=== PATIENT | female | born 1960 | race Caucasian/White ===

== ENCOUNTER 2019-05-01 20:05 | Inpatient (IN) | payer OTHER ==
--- NOTE | 2019-05-01 20:27 | PDOC ---
Rapid Medical Evaluation Chief Complaint: Pain Time Seen by Provider: 05/01/19 20:08 Medical Evaluation: 05/01/19 20:08 Pt c/o: took 2 energy drinks at 4 and 6, felt tremulous and feels her sugar is high Pt on brief exam: lethargic, tachycardic, dry mouth Pt ordered for: septic w/u, head ct, bgm now Pt to proceed to the ED Discharge Disposition - Diagnosis Weakness - Referrals - Patient Instructions - Post Discharge Activity
[2019-05-01] MEDS ORDERED: SODIUM CHLORIDE 1,000 ML IV STA (20:30)
[2019-05-01 20:54] LABS: VENOUS PC02 22.8 mmHg (38-52); VENOUS PH 7.25 (7.31-7.41)
[2019-05-01 20:57] LABS: BASO % 0.2 % (0-2.0); HEMATOCRIT 42.3 % (32.4-45.2); HEMOGLOBIN 14.2 GM/dL (10.7-15.3); LYMPH % 4.8 % (8-40); MCH 35.6 pg (25.7-33.7); MCHC 33.4 g/dl (32.0-36.0); MEAN CELL VOLUME 106.4 fl (80-96); MONO % 8.4 % (3.8-10.2); NEUT % 86.6 % (42.8-82.8); PLATELET COUNT 212 K/MM3 (134-434); RBC 3.98 M/mm3 (3.60-5.2); RDW 13.6 % (11.6-15.6); WHITE BLOOD COUNT 11.6 K/mm3 (4.0-10.0)
--- NOTE | 2019-05-01 21:03 | PDOC ---
History of Present Illness - General Chief Complaint: Pain Stated Complaint: PAIN Time Seen by Provider: 05/01/19 20:08 History Source: Patient Exam Limitations: Language Barrier (Mozambican only) - History of Present Illness Initial Comments: 05/01/19 20:58 58 yo F PMH NIDDM presenting with SOB. Patient Mozambican speaking only. States that her shortness of breath began this morning after drinking two energy drinks , worsened with activity, alleviated by rest, associated with nausea without vomiting. Denies CP, diaphoresis, fevers/chills at home, constipation/diarrhea. Reportedly was checked for a UTI four days ago and did not have one. Denies ever having heart attack or stroke in the past. 05/01/19 21:30 Patient now saying she is visiting from [place], arrived last month, leaving next month. Past History - Past Medical History Allergies/Adverse Reactions: Allergies Allergy/AdvReac Type Severity Reaction Status Date / Time No Known Allergies Allergy Verified 05/01/19 20:10 Home Medications: Ambulatory Orders Metformin HCl [Metformin HCl ER] 500 mg PO BID 05/01/19 COPD: No Diabetes: Yes - Immunization History Immunization Up to Date: No - Psycho Social/Smoking Cessation Hx Smoking History: Never smoked Hx Alcohol Use: No Drug/Substance Use Hx: No Review of Systems - Review of Systems Able to Perform ROS?: Yes Is the patient limited Sami proficient: Yes Constitutional: No: Chills, Diaphoresis, Fever HEENTM: No: Recent change in vision, Hearing Loss, Throat Pain, Mouth Swelling Respiratory: Yes: Shortness of Breath, SOB with Exertion. No: Cough, Orthopnea , SOB at Rest, Wheezing Cardiac (ROS): No: Chest Pain, Edema, Irregular Heart Rate, Lightheadedness ABD/GI: Yes: Nausea. No: Constipated, Diarrhea, Vomiting : Yes: Burning. No: Frequency, Flank Pain Musculoskeletal: No: Back Pain, Neck Pain Neurological: No: Headache, Numbness, Tingling, Weakness *Physical Exam - Vital Signs Last Vital Signs Temp Pulse Resp BP Pulse Ox 98.2 F 134 H 18 133/82 97 05/01/19 20:10 05/01/19 20:10 05/01/19 20:10 05/01/19 20:10 05/01/19 20:10 - Physical Exam Comments: 10/11/19 21:04 Gen: appears older than stated age, short of breath Neuro: AAOX4, CN II-XII intact, FTN intact, PERRLA, EOMI HEENT: atraumatic, normocephalic Neck: trachea midline, supple CV: tachycardic, regular rhythm Pulm: poor inspiratory effort, otherwise CTA b/l Abd: soft, non-distended, non-tender MSK: full ROM, intact pulses Extr: no edema, no deformities Skin: warm, dry ED Treatment Course - LABORATORY CBC & Chemistry Diagram: 05/02/19 06:38 05/02/19 16:30 - ADDITIONAL ORDERS Additional order review: Laboratory Results 05/01/19 20:16 POC Glucometer 414 05/01/19 20:16 POC Glucometer 414 Medical Decision Making - Medical Decision Making 05/01/19 21:09 Concern for UTI v PNA v ACS v PE. - f/u labs - pending Cr, afterwards get CTpe r/o PE - give 1L IVF - ctm EKG sinus at 130. 05/01/19 21:21 WBC 11.6, pH 7.25, BHB >46, anion gap 22. Concern for DKA. K only 3.8, will give K rider X3. Na corrected 131. 05/01/19 22:[address] Hernandez in the ICU, they will come see patient. 05/01/19 22:38 CXR appears congested, BNP 455.6. UA concerning for UTI, will give ceftriaxone. Discharge - Discharge Information Problems reviewed: Yes Clinical Impression/Diagnosis: Contusion - Follow up/Referral - Patient Discharge Instructions - Post Discharge Activity
[2019-05-01 21:06] LABS: INR 1.05 (0.83-1.09); PROTHROMBIN TIME (PATIENT) 12.4 SEC (9.7-13.0)
[2019-05-01 21:19] LABS: ALBUMIN 3.2 g/dl (3.4-5.0); ALK PHOS 136 U/L (45-117); ANION GAP 22 MMOL/L (8-16); BILIRUBIN,TOTAL 0.6 mg/dL (0.2-1); BLOOD UREA NITROGEN 8.8 mg/dL (7-18); CALCIUM 8.2 mg/dL (8.5-10.1); CHLORIDE 95 mmol/L (98-107); CO2 10 mmol/L (21-32); CREATININE 0.6 mg/dL (0.55-1.3); MAGNESIUM 1.6 mg/dL (1.8-2.4); POTASSIUM 3.8 mmol/L (3.5-5.1); SGOT/AST 7 U/L (15-37); SGPT/ALT 14 U/L (13-61); SODIUM 126 mmol/L (136-145)
[2019-05-01 21:21] LABS: GLUCOSE,RANDOM 415 mg/dL (74-106)
[2019-05-01 21:22] LABS: VENOUS PO2 < 49 mmHg (28-48)
[2019-05-01] MEDS ORDERED: SODIUM CHLORIDE 0.9% 500 ML INFUS.BAG IV ONE (21:22)
[2019-05-01] MEDS ORDERED: INSULIN REGULAR HUMAN 100 UNITS/ML *VIAL IVPUSH ONE (21:34)
[2019-05-01] MEDS ORDERED: MAGNESIUM SULF 50% (8.12 MEQ/2 ML-1 GM VIAL) IVPB ONE (21:41)
[2019-05-01] MEDS ORDERED: SODIUM CHLORIDE 0.9%/KCL 20 MEQ/1,000 ML INFUS.BAG IV SCH (21:45)
--- NOTE | 2019-05-01 21:49 | PDOC ---
Documentation entered by Ally Moralez SCRIBE, acting as scribe for Lindsay Shearer MD. Lindsay Shearer MD: This documentation has been prepared by the Naomy puentes Xhesika, SCRIBE, under my direction and personally reviewed by me in its entirety. I confirm that the documentation accurately reflects all work, treatment, procedures, and medical decision making performed by me. Attending Attestation - Resident Resident Name: Ashtyn Estrella - ED Attending Attestation I have performed the following: I have examined & evaluated the patient, The case was reviewed & discussed with the resident, I agree w/resident's findings & plan, Exceptions are as noted - HPI HPI: 05/01/19 21:08 The patient is a 58 year old female with a significant PMH of NIDDM presents to the emergency department for SOB and jitteriness after drinking 2 energy drinks at 4AM and 6AM. Patient notes her SOB is persistent, associated with nausea, is worsened with activity and alleviated at rest. Patient notes she has been endorsing dysuria for the past 4 days, had it evaluated and was not placed on abx, denies previous UTIs. Patient Denies recent travel or immobility. The patient denies chest pain, headache and dizziness. Denies fever, chills, cough, vomiting, diarrhea and constipation. Denies dysuria, frequency, urgency and hematuria. Allergies: NKDA - Physicial Exam PE: 05/01/19 21:09 GENERAL: Awake, alert, and fully oriented, in no acute distress. Appears older than stated age. EYES: PERRLA, EOMI, sclera anicteric, conjunctiva clear ENT: Oropharynx clear without exudates. Dry MM NECK: Normal ROM, supple, no lymphadenopathy, JVD, or masses LUNGS: Breath sounds equal, clear to auscultation bilaterally. No wheezes, and no crackles HEART: Tachycardic but regular, rate 128, normal S1 and S2, no murmurs, rubs or gallops ABDOMEN: Soft, nontender, normoactive bowel sounds. No guarding, no rebound. No masses EXTREMITIES: Normal range of motion, no edema. No clubbing or cyanosis. No cords , erythema, or tenderness BACK: No midline spinal tenderness in cervical/thoracic/lumbar region NEUROLOGICAL: Normal speech, cranial nerves intact, equal strength and sensation b/l SKIN: Warm, Dry, normal turgor, no rashes or lesions noted. - Critical Care Time Total Critical Care Time: 60 Critical Care Statement: The care of this patient involved high complexity decision making to prevent further life threatening deterioration of the patient 's condition and/or to evaluate & treat vital organ system(s) failure or risk of failure. - Medical Decision Making 05/01/19 21:45 58yo F hx NIDDM presents to the ED with 1 day of SOB, jitteriness after drinking 2 energy drinks Labs thus far consistent with DKA Mg 1.6, ordered 2G mg sulfate. Potassium 3.8, will replete with 3 runs of potassium as well as 1L NS with 20meq of KCl Will also start insulin gtt at 4 units/hr Anticipate admission to ICU 05/01/19 23:[address] Solomon, pt accepted for admission Case discussed in detail with admitting physician including history, physical exam and ancillary studies. Admitting physician has assumed care for the patient, will follow all pending diagnostics and will complete the evaluation and treatment. Heart Score/ECG Review #1 05/01/19 21:44 Twelve-lead EKG was performed and reviewed by me. Sinus tachycardia, rate 130. Normal axis. No ST elevations but wavy baseline.
[2019-05-01 21:52] LABS: MACROCYTOSIS 2+
[2019-05-01] MEDS ORDERED: KCL 10 MEQ IVPB 30 MEQ/300 ML INFUS.BAG IVPB ONE (21:56)
[2019-05-01 22:21] LABS: EPI CELLS 0.4 /HPF (0-5/HPF); HYALINE CASTS 4 /lpf (0-8); URINE APPEARANCE CLOUDY; URINE BACTERIA 248.8 /hpf (NEGATIVE); URINE BILIRUBIN NEGATIVE (NEGATIVE); URINE COLOR YELLOW; URINE GLUCOSE (UA) 3+ (NEGATIVE); URINE KETONE 4+ (NEGATIVE); URINE LEUK ESTERASE NEGATIVE (NEGATIVE); URINE NITRITE NEGATIVE (NEGATIVE); URINE PROTEIN 1+ (NEGATIVE); URINE RBC 4 /hpf (0-4); URINE UROBILINOGEN 0.2 mg/dL (0.2-1.0)
[2019-05-01 22:25] LABS: URINE WBC 19.4 /hpf (0-5)
[2019-05-01] MEDS ORDERED: CEFTRIAXONE 1,000 MG in DEXTROSE 5%-WATER - 50 ML IVPB ONE (22:36)
[2019-05-01 22:37] LABS: N-TERMINAL BNP 465.6 pg/ml (5-125)
[2019-05-01] MEDS: KCL 10 MEQ IVPB 10 MEQ/100 ML INFUS.BAG IVPB SCH ×2 (22:37→23:59)
[2019-05-01] MEDS ORDERED: MAGNESIUM 1GM/D5W - 2 GM/200 ML IVPB IVPB ONE (22:39)
--- NOTE | 2019-05-01 22:52 | CONSULT ---
Consultation: REQUESTING PROVIDER: ED CONSULT REQUEST: We have been asked to medically evaluate this patient for ( Diabetic Ketoacidosis. HISTORY OF PRESENT ILLNESS: Pt is a 58 y/o F with a significant PMH of NIDDM who presented initially to [facility] due to shortness of breath. Pt states that she consumed 2 energy drinks yesterday morning when she began to feel jittery. Pt also states that she has been experiencing dry mouth and dysuria for the past few days as well. As per assessment, pt appears to be poor historian and cannot further elaborate on condition. FAUSTO Pollock at bedside aided in translation. REVIEW OF SYSTEMS: CONSTITUTIONAL: Absent: fever, chills, diaphoresis, generalized weakness, malaise, loss of appetite, weight change HEENT: PRESENT: Dry mouth CARDIOVASCULAR: Absent: chest pain, syncope, palpitations, irregular heart rate, lightheadedness , peripheral edema RESPIRATORY: Absent: cough, shortness of breath, dyspnea with exertion, orthopnea, wheezing, stridor, hemoptysis GASTROINTESTINAL: Absent: abdominal pain, abdominal distension, nausea, vomiting, diarrhea, constipation, melena, hematochezia GENITOURINARY: PRESENT: dysuria MUSCULOSKELETAL: Absent: myalgia, arthralgia, joint swelling, back pain, neck pain SKIN: Absent: rash, itching, pallor HEMATOLOGIC/IMMUNOLOGIC: Absent: easy bleeding, easy bruising, lymphadenopathy, frequent infections ENDOCRINE: Absent: unexplained weight gain, unexplained weight loss, heat intolerance, cold intolerance NEUROLOGIC: Absent: headache, focal weakness or paresthesias, dizziness, unsteady gait, seizure, mental status changes, bladder or bowel incontinence PSYCHIATRIC: Absent: anxiety, depression, suicidal or homicidal ideation, hallucinations. PHYSICAL EXAMINATION Vital Signs - 24 hr 05/01/19 20:10 Temperature 98.2 F Pulse Rate 134 H Respiratory 18 Rate Blood Pressure 133/82 O2 Sat by Pulse 97 Oximetry (%) GENERAL: NAD HEAD: Normal with no signs of trauma. EYES: EOMI Sclera Clear EARS, NOSE, THROAT: Dry mucous membranes LUNGS: CTAB HEART: Tachycardic S1S2 ABDOMEN: Soft NDNT No HSM LOWER EXTREMITIES: No CCE NEUROLOGICAL: Cranial nerves II-XII intact. SKIN: Warm, dry, normal turgor, no rashes or lesions noted. Laboratory Results - last 24 hr 05/01/19 05/01/19 05/01/19 20:16 20:36 20:40 WBC 11.6 H RBC 3.98 Hgb 14.2 Hct 42.3 MCV 106.4 H MCH 35.6 H MCHC 33.4 RDW 13.6 Plt Count 212 MPV 10.0 Absolute Neuts (auto) 10.0 H Neutrophils % 86.6 H Neutrophils % (Manual) 86.0 H Band Neutrophils % 1.0 Lymphocytes % 4.8 L Lymphocytes % (Manual) 7.0 L Monocytes % 8.4 Monocytes % (Manual) 5 Eosinophils % 0.0 Eosinophils % (Manual) 0.0 Basophils % 0.2 Basophils % (Manual) 0.0 Myelocytes % (Man) 1 Promyelocytes % (Man) 0 Blast Cells % (Manual) 0 Nucleated RBC % 0 Metamyelocytes 0 Macrocytosis 2+ PT with INR INR VBG pH POC VBG pCO2 POC VBG pO2 VBG HCO3 VBG O2 Sat (Jossy) VBG Base Excess Sodium Potassium Chloride Carbon Dioxide Anion Gap BUN Creatinine Est GFR (CKD-EPI)AfAm Est GFR (CKD-EPI)NonAf POC Glucometer 414 Random Glucose Lactic Acid 1.7 Calcium Magnesium Total Bilirubin AST ALT Alkaline Phosphatase Creatine Kinase Troponin I B-Natriuretic Peptide Total Protein Albumin Beta-Hydroxybutyrate Urine Color Urine Appearance Urine pH Ur Specific [place] Urine Protein Urine Glucose (UA) Urine Ketones Urine Blood Urine Nitrite Urine Bilirubin Urine Urobilinogen Ur Leukocyte Esterase Urine WBC (Auto) Urine RBC (Auto) Urine Casts (Auto) U Epithel Cells (Auto) Urine Bacteria (Auto) Blood Type Antibody Screen 05/01/19 05/01/19 05/01/19 20:40 20:40 20:40 WBC RBC Hgb Hct MCV MCH MCHC RDW Plt Count MPV Absolute Neuts (auto) Neutrophils % Neutrophils % (Manual) Band Neutrophils % Lymphocytes % Lymphocytes % (Manual) Monocytes % Monocytes % (Manual) Eosinophils % Eosinophils % (Manual) Basophils % Basophils % (Manual) Myelocytes % (Man) Promyelocytes % (Man) Blast Cells % (Manual) Nucleated RBC % Metamyelocytes Macrocytosis PT with INR INR VBG pH 7.25 L POC VBG pCO2 22.8 L POC VBG pO2 < 49 H VBG HCO3 9.5 L VBG O2 Sat (Jossy) 80.7 H VBG Base Excess -16.3 L Sodium 126 L Potassium 3.8 Chloride 95 L Carbon Dioxide 10 L Anion Gap 22 H BUN 8.8 Creatinine 0.6 Est GFR (CKD-EPI)AfAm 117.27 Est GFR (CKD-EPI)NonAf 101.18 POC Glucometer Random Glucose 415 H* Lactic Acid Calcium 8.2 L Magnesium 1.6 L Total Bilirubin 0.6 AST 7 L ALT 14 Alkaline Phosphatase 136 H Creatine Kinase 22 L Troponin I < 0.02 B-Natriuretic Peptide 465.6 H Total Protein 7.0 Albumin 3.2 L Beta-Hydroxybutyrate Urine Color Urine Appearance Urine pH Ur Specific [place] Urine Protein Urine Glucose (UA) Urine Ketones Urine Blood Urine Nitrite Urine Bilirubin Urine Urobilinogen Ur Leukocyte Esterase Urine WBC (Auto) Urine RBC (Auto) Urine Casts (Auto) U Epithel Cells (Auto) Urine Bacteria (Auto) Blood Type B POSITIVE Antibody Screen Negative 05/01/19 05/01/19 05/01/19 20:40 20:40 22:00 WBC RBC Hgb Hct MCV MCH MCHC RDW Plt Count MPV Absolute Neuts (auto) Neutrophils % Neutrophils % (Manual) Band Neutrophils % Lymphocytes % Lymphocytes % (Manual) Monocytes % Monocytes % (Manual) Eosinophils % Eosinophils % (Manual) Basophils % Basophils % (Manual) Myelocytes % (Man) Promyelocytes % (Man) Blast Cells % (Manual) Nucleated RBC % Metamyelocytes Macrocytosis PT with INR 12.40 INR 1.05 VBG pH POC VBG pCO2 POC VBG pO2 VBG HCO3 VBG O2 Sat (Jossy) VBG Base Excess Sodium Potassium Chloride Carbon Dioxide Anion Gap BUN Creatinine Est GFR (CKD-EPI)AfAm Est GFR (CKD-EPI)NonAf POC Glucometer Random Glucose Lactic Acid Calcium Magnesium Total Bilirubin AST ALT Alkaline Phosphatase Creatine Kinase Troponin I B-Natriuretic Peptide Total Protein Albumin Beta-Hydroxybutyrate > 46.0 H Urine Color Yellow Urine Appearance Cloudy Urine pH 5.0 Ur Specific [place] 1.033 Urine Protein 1+ H Urine Glucose (UA) 3+ H Urine Ketones 4+ H Urine Blood 1+ H Urine Nitrite Negative Urine Bilirubin Negative Urine Urobilinogen 0.2 Ur Leukocyte Esterase Negative Urine WBC (Auto) 19.4 Urine RBC (Auto) 4 Urine Casts (Auto) 4 U Epithel Cells (Auto) 0.4 Urine Bacteria (Auto) 248.8 Blood Type Antibody Screen Active Medications Generic Name Dose Route Start Last Admin Trade Name Freq PRN Reason Stop Dose Admin Potassium Chloride 10 meq in 100 mls @ 100 mls/hr 05/01/19 21:45 Potassium Chloride 10 Meq Premix Ivpb - IVPB 05/02/19 00:44 Q60M JULISSA Potassium Chloride/Sodium Chloride 20 meq in 1,000 mls @ 1,000 mls/hr 21:45 Ns+20 Meq Kcl - IV ASDIR JULISSA Insulin Human Regular 100 100 mls @ 3.81 mls/hr 05/01/19 22:00 units/ Sodium Chloride IVPB TITR JULISSA Protocol 0.1 UNITS/KG/HR Ceftriaxone Sodium 1,000 mg/ 50 mls @ 100 mls/hr 05/01/19 22:36 Dextrose IVPB 05/01/19 23:05 ONCE ONE ASSESSMENT/PLAN: Pt is a 58 y/o F with a significant PMH of NIDDM who presented initially to [facility] due to shortness of breath and found to be in DKA. # Diabetic ketoacidosis -BGM 415, Anion gap 22, CO2 10, PH 7.25 (VBG), B Hydroxybutyrate > 46. -Pt's initial Potassium 3.8. Started on NS w/ 20 mEQ KCL. -Insulin gtt started -BGM Q1H -BMP Q2H -Once BGM < 200, switch to D5 1/2 NS from NS -Once Anion gap closed and pt able to eat, will bridge with SC insulin for 2 hours. #UTI -Leuk Est neg, WBC 19.4, mildly suggestive of UTI. Pt placed on Ceftriaxone. -UCx, Blood Cx pending. #FEN D5 1/2 NS w/ 40 mEQ Monitor Electrolytes Diabetic Diet #DVT ppx HEPQTID Dispo: We will continue to follow the patient. Thank you for this consultative opportunity. Visit type - Emergency Visit Emergency Visit: Yes ED Registration Date: 05/01/19 Care time: The patient presented to the Emergency Department on the above date and was hospitalized for further evaluation of their emergent condition. - New Patient This patient is new to me today: Yes Date on this admission: 05/01/19 - Critical Care Critical Care patient: Yes Total Critical Care Time (in minutes): 35 Critical Care Statement: The care of this patient involved high complexity decision making to prevent further life threatening deterioration of the patient 's condition and/or to evaluate & treat vital organ system(s) failure or risk of failure.
[2019-05-01] MEDS ORDERED: INSULIN REGULAR HUMAN 100 UNITS/ML *VIAL ONE (22:59)
[2019-05-01] MEDS: INSULIN REGULAR 100 UNITS in SODIUM CHLORIDE 99 ML IVPB SCH (23:06)
--- NOTE | 2019-05-01 23:34 | HP ---
<Derek Barry - Last Filed: 05/02/19 04:43> CHIEF COMPLAINT: shortness of breath PCP: none HISTORY OF PRESENT ILLNESS: 58 year old polish-speaking female with a history of non-insulin dependent diabetes mellitus presented to the hospital for acute onset shortness of breath that began earlier today around 4pm after she drank two energy drinks. Reports that she became so dyspneic she had to come to the hospital.Patient recently traveled here from [place] and plans to leave next month. Reports never experiencing these symptoms in the past. She is compliant with her medications at home. Was diagnosed in the ED with diabetic ketoacidosis; patient was started on fluids and insulin drip. Denied any chest pain, nausea, vomiting, diarrhea, fevers or chills, abdominal pain. ER course was notable for: (1) hyperglycemia, anion gap metabolic acidosis, positive B hydroxybutyrate (2) UA + UTI (3) Recent Travel: recently traveled from [place] PAST MEDICAL HISTORY: NIDDM PAST SURGICAL HISTORY: denied Social History: Smoking: denies Alcohol: denies Drugs: denies Family: unknown family history of cancers, heart disease or diabetes Allergies No Known Allergies Allergy (Verified 05/01/19 20:10) HOME MEDICATIONS: Home Medications Medication Instructions Recorded Metformin HCl [Metformin HCl ER] 500 mg PO BID 05/01/19 REVIEW OF SYSTEMS CONSTITUTIONAL: Absent: fever, chills, diaphoresis, generalized weakness, malaise, loss of appetite, weight change HEENT: Absent: rhinorrhea, nasal congestion, throat pain, throat swelling, difficulty swallowing, mouth swelling, ear pain, eye pain, visual changes CARDIOVASCULAR: Absent: chest pain, syncope, palpitations, irregular heart rate, lightheadedness , peripheral edema RESPIRATORY: shortness of breath Absent: cough, dyspnea with exertion, orthopnea, wheezing, stridor, hemoptysis GASTROINTESTINAL: Absent: abdominal pain, abdominal distension, nausea, vomiting, diarrhea, constipation, melena, hematochezia GENITOURINARY: Absent: dysuria, frequency, urgency, hesitancy, hematuria, flank pain, genital pain MUSCULOSKELETAL: Absent: myalgia, arthralgia, joint swelling, back pain, neck pain SKIN: Absent: rash, itching, pallor HEMATOLOGIC/IMMUNOLOGIC: Absent: easy bleeding, easy bruising, lymphadenopathy, frequent infections ENDOCRINE: Absent: unexplained weight gain, unexplained weight loss, heat intolerance, cold intolerance NEUROLOGIC: Absent: headache, focal weakness or paresthesias, dizziness, unsteady gait, seizure, mental status changes, bladder or bowel incontinence PSYCHIATRIC: Absent: anxiety, depression, suicidal or homicidal ideation, hallucinations. PHYSICAL EXAMINATION Vital Signs - 24 hr 05/01/19 05/01/19 20:10 23:05 Temperature 98.2 F Pulse Rate 134 H Pulse Rate [ 120 H Right Radial] Respiratory 18 24 H Rate Blood Pressure 133/82 Blood Pressure 101/62 [Left Arm] O2 Sat by Pulse 97 97 Oximetry (%) GENERAL: A&Ox3, no acute distress EYES: PERRLA, EOMI ENT: Dry mucus membranes NECK: No JVD LUNGS: CTA, tachypneic on exam HEART: RRR, no murmurs ABDOMEN: Soft, nontender, BS present MUSCULOSKELETAL: No CVA Tenderness EXTREMITIES: 2+ pulses, no edema. NEUROLOGICAL: Cranial nerves II-XII intact. Laboratory Results - last 24 hr 05/01/19 05/01/19 05/01/19 20:16 20:36 20:40 WBC 11.6 H RBC 3.98 Hgb 14.2 Hct 42.3 MCV 106.4 H MCH 35.6 H MCHC 33.4 RDW 13.6 Plt Count 212 MPV 10.0 Absolute Neuts (auto) 10.0 H Neutrophils % 86.6 H Neutrophils % (Manual) 86.0 H Band Neutrophils % 1.0 Lymphocytes % 4.8 L Lymphocytes % (Manual) 7.0 L Monocytes % 8.4 Monocytes % (Manual) 5 Eosinophils % 0.0 Eosinophils % (Manual) 0.0 Basophils % 0.2 Basophils % (Manual) 0.0 Myelocytes % (Man) 1 Promyelocytes % (Man) 0 Blast Cells % (Manual) 0 Nucleated RBC % 0 Metamyelocytes 0 Macrocytosis 2+ PT with INR INR VBG pH POC VBG pCO2 POC VBG pO2 VBG HCO3 VBG O2 Sat (Jossy) VBG Base Excess Sodium Potassium Chloride Carbon Dioxide Anion Gap BUN Creatinine Est GFR (CKD-EPI)AfAm Est GFR (CKD-EPI)NonAf POC Glucometer 414 Random Glucose Lactic Acid 1.7 Calcium Magnesium Total Bilirubin AST ALT Alkaline Phosphatase Creatine Kinase Troponin I B-Natriuretic Peptide Total Protein Albumin Beta-Hydroxybutyrate Urine Color Urine Appearance Urine pH Ur Specific [place] Urine Protein Urine Glucose (UA) Urine Ketones Urine Blood Urine Nitrite Urine Bilirubin Urine Urobilinogen Ur Leukocyte Esterase Urine WBC (Auto) Urine RBC (Auto) Urine Casts (Auto) U Epithel Cells (Auto) Urine Bacteria (Auto) Blood Type Antibody Screen 05/01/19 05/01/19 05/01/19 20:40 20:40 20:40 WBC RBC Hgb Hct MCV MCH MCHC RDW Plt Count MPV Absolute Neuts (auto) Neutrophils % Neutrophils % (Manual) Band Neutrophils % Lymphocytes % Lymphocytes % (Manual) Monocytes % Monocytes % (Manual) Eosinophils % Eosinophils % (Manual) Basophils % Basophils % (Manual) Myelocytes % (Man) Promyelocytes % (Man) Blast Cells % (Manual) Nucleated RBC % Metamyelocytes Macrocytosis PT with INR INR VBG pH 7.25 L POC VBG pCO2 22.8 L POC VBG pO2 < 49 H VBG HCO3 9.5 L VBG O2 Sat (Jossy) 80.7 H VBG Base Excess -16.3 L Sodium 126 L Potassium 3.8 Chloride 95 L Carbon Dioxide 10 L Anion Gap 22 H BUN 8.8 Creatinine 0.6 Est GFR (CKD-EPI)AfAm 117.27 Est GFR (CKD-EPI)NonAf 101.18 POC Glucometer Random Glucose 415 H* Lactic Acid Calcium 8.2 L Magnesium 1.6 L Total Bilirubin 0.6 AST 7 L ALT 14 Alkaline Phosphatase 136 H Creatine Kinase 22 L Troponin I < 0.02 B-Natriuretic Peptide 465.6 H Total Protein 7.0 Albumin 3.2 L Beta-Hydroxybutyrate Urine Color Urine Appearance Urine pH Ur Specific [place] Urine Protein Urine Glucose (UA) Urine Ketones Urine Blood Urine Nitrite Urine Bilirubin Urine Urobilinogen Ur Leukocyte Esterase Urine WBC (Auto) Urine RBC (Auto) Urine Casts (Auto) U Epithel Cells (Auto) Urine Bacteria (Auto) Blood Type B POSITIVE Antibody Screen Negative 05/01/19 05/01/19 05/01/19 20:40 20:40 22:00 WBC RBC Hgb Hct MCV MCH MCHC RDW Plt Count MPV Absolute Neuts (auto) Neutrophils % Neutrophils % (Manual) Band Neutrophils % Lymphocytes % Lymphocytes % (Manual) Monocytes % Monocytes % (Manual) Eosinophils % Eosinophils % (Manual) Basophils % Basophils % (Manual) Myelocytes % (Man) Promyelocytes % (Man) Blast Cells % (Manual) Nucleated RBC % Metamyelocytes Macrocytosis PT with INR 12.40 INR 1.05 VBG pH POC VBG pCO2 POC VBG pO2 VBG HCO3 VBG O2 Sat (Jossy) VBG Base Excess Sodium Potassium Chloride Carbon Dioxide Anion Gap BUN Creatinine Est GFR (CKD-EPI)AfAm Est GFR (CKD-EPI)NonAf POC Glucometer Random Glucose Lactic Acid Calcium Magnesium Total Bilirubin AST ALT Alkaline Phosphatase Creatine Kinase Troponin I B-Natriuretic Peptide Total Protein Albumin Beta-Hydroxybutyrate > 46.0 H Urine Color Yellow Urine Appearance Cloudy Urine pH 5.0 Ur Specific [place] 1.033 Urine Protein 1+ H Urine Glucose (UA) 3+ H Urine Ketones 4+ H Urine Blood 1+ H Urine Nitrite Negative Urine Bilirubin Negative Urine Urobilinogen 0.2 Ur Leukocyte Esterase Negative Urine WBC (Auto) 19.4 Urine RBC (Auto) 4 Urine Casts (Auto) 4 U Epithel Cells (Auto) 0.4 Urine Bacteria (Auto) 248.8 Blood Type Antibody Screen ASSESSMENT/PLAN: 58 year old polish-speaking female with a history of non-insulin dependent diabetes mellitus presented to the hospital for acute onset shortness of breath that began earlier today around 4pm after she drank two energy drinks. #Diabetic Ketoacidosis: uncommon in a type II diabetic, however infection can predispose to DKA in these patients -positive for anion gap metabolic acidosis, hyperglycemia, and + for ketones -UA mildly suggestive of UTI but not overly convincing, could possibly be kidney stone- spiral CT ordered -aggressive fluid hydration, potassium repletion -BGM q1h -BMP q3h -monitor anion gap, bicarbonate, potassium, and glucose (for hypoglycemia) -insulin ggt, titrate as needed after evaluating BMP -will get A1C -will dose meropenem -urine cultures pending -once anion gap closes, can transition to long acting insulin -ICU admission, discussed w/ Dr. Juan Antonio Hernandez of the MICU team -dietary consultation #Pseudohyponatremia: corrected for glucose the sodium is normal -continue to monitor by BMPs #Elevated alk phos -will f/u, ordered ggt #Hypomagnesemia: replete mag #Elevated BNP: mildly elevated at 490 -echo ordered #FEN -aggressive fluid hydration -watch lytes with q3 BMPs -NPO while being treated for DKA actively #Prophylaxis -lovenox #Disposition -admit ICU Visit type - Emergency Visit Emergency Visit: Yes ED Registration Date: 05/01/19 Care time: The patient presented to the Emergency Department on the above date and was hospitalized for further evaluation of their emergent condition. - New Patient This patient is new to me today: Yes Date on this admission: 05/02/19 - Critical Care Critical Care patient: Yes Total Critical Care Time (in minutes): 40 Critical Care Statement: The care of this patient involved high complexity decision making to prevent further life threatening deterioration of the patient 's condition and/or to evaluate & treat vital organ system(s) failure or risk of failure. ATTENDING PHYSICIAN STATEMENT I saw and evaluated the patient. I reviewed the resident's note and discussed the case with the resident. I agree with the resident's findings and plan as documented. SUBJECTIVE: OBJECTIVE: ASSESSMENT AND PLAN: <Ted Solomon - Last Filed: 05/09/19 10:57> Seen and examined; independently verified all diagnostic information as well as historical and exam findings as outlined in the resdient note. I agree with their above documentation aside from as is supplemented by myself below. She is critically ill and I spent 60 minutes of critical care time in the managemtn of this patient 10 sys ROS done and negative aside from HPI but will note she is a poor historian for her age likely due to clinical process VS, labs, imaging reviewed Mild distress, AAO, resting in bed RRR s1/2 no mgr Vague tenderness ND +BS CN2-12 wnl, no fnd Normal mood, appropriate behavior Independently reviewed CXR; no jez PNA EKG reviewed, no ischemic changes noted CT pending A/P: Presents with DKA and likely underlying sepsis from unclear source. Does have hematuria noted. -DKA -Likely Sepsis, r/o urosepsis vs. other source. -Hyponatremia -R/O Renal Stone -Sinus tachycardia -Uncontrolled Diabetes Mellitus 2 -Hypomagnesemia -Elevated BNP Insulin drip, abx, fluids, ICU eval. Full Code ATTENDING PHYSICIAN STATEMENT I saw and evaluated the patient. I reviewed the resident's note and discussed the case with the resident. I agree with the resident's findings and plan as documented. SUBJECTIVE: OBJECTIVE: ASSESSMENT AND PLAN:
[2019-05-01] MEDS ORDERED: MAGNESIUM 4GM/H20 - 4 GM/100 ML IVPB IVPB ONE (23:37)
[2019-05-01] MEDS ORDERED: LACTATED RINGERS SOLUTION 1000 ML INFUS.BAG IV ONE (23:39)
[2019-05-01] MEDS ORDERED: LACTATED RINGERS SOLUTION 1,000 ML/1,000 ML INFUS.BAG IV SCH (23:45)
[2019-05-02] MEDS: KCL 10 MEQ IVPB 10 MEQ/100 ML INFUS.BAG IVPB SCH ×4 (00:53→22:52)
[2019-05-02] MEDS ORDERED: MEROPENEM 1 GM VIAL (RESTRICTED TO ID) IVPB ONE ×4 (03:19→22:27)
[2019-05-02] MEDS ORDERED: DEXTROSE 5%-WATER 100 ML IVPB ONE ×4 (03:19→22:27)
[2019-05-02] MEDS ORDERED: D5-1/2NS+20 MEQ KCL - 20 MEQ/1,000 ML INFUS.BAG IV SCH ×2 (03:30→19:45)
[2019-05-02] MEDS ORDERED: CEFTRIAXONE 1 GM in DEXTROSE 5%-WATER - 50 ML IVPB ONE (03:30)
[2019-05-02] MEDS: MEROPENEM 1 GM in DEXTROSE 5%-WATER 100 ML IVPB SCH ×5 (03:40→22:50)
[2019-05-02] MEDS ORDERED: cefTRIAXone SODIUM 1 GM VIAL ONE (03:44)
[2019-05-02] MEDS ORDERED: DEXTROSE 5%-WATER - 50 ML IVPB ONE (03:45)
[2019-05-02 04:01] LABS: BLOOD UREA NITROGEN 7.6 mg/dL (7-18); CALCIUM 7.6 mg/dL (8.5-10.1); CREATININE 0.7 mg/dL (0.55-1.3); POTASSIUM 3.5 mmol/L (3.5-5.1)
[2019-05-02] MEDS ORDERED: D5-1/2NS+40 MEQ KCL - 40 MEQ/1,000 ML INFUS.BAG IV SCH (04:15)
[2019-05-02] MEDS ORDERED: INSULIN (LEVEMIR) 100 UNITS/ML UNITS SQ ONE (06:43)
[2019-05-02] MEDS: INSULIN SLIDING SCALE (NOVOLOG) 1 VIAL SQ SCH ×2 (07:00→11:44)
[2019-05-02 07:50] LABS: BASO % 0.4 % (0-2.0); HEMATOCRIT 35.6 % (32.4-45.2); HEMOGLOBIN 12.2 GM/dL (10.7-15.3); LYMPH % 4.8 % (8-40); MCH 35.4 pg (25.7-33.7); MCHC 34.3 g/dl (32.0-36.0); MEAN CELL VOLUME 103.3 fl (80-96); MEAN PLT VOLUME 9.9 fl (7.5-11.1); MONO % 11.4 % (3.8-10.2); NEUT % 83.4 % (42.8-82.8); PLATELET COUNT 178 K/MM3 (134-434); RBC 3.45 M/mm3 (3.60-5.2); RDW 13.3 % (11.6-15.6); WHITE BLOOD COUNT 11.7 K/mm3 (4.0-10.0)
[2019-05-02 08:06] LABS: INR 1.08 (0.83-1.09); PROTHROMBIN TIME (PATIENT) 12.8 SEC (9.7-13.0)
[2019-05-02 08:09] LABS: ACTIVATED PTT 30.3 SECONDS (25.2-36.5)
[2019-05-02 08:24] LABS: BLOOD UREA NITROGEN 7.7 mg/dL (7-18); CALCIUM 7.3 mg/dL (8.5-10.1); CREATININE 0.5 mg/dL (0.55-1.3); MAGNESIUM 1.6 mg/dL (1.8-2.4); POTASSIUM 3.9 mmol/L (3.5-5.1)
[2019-05-02 08:30] LABS: PHOSPHOROUS 0.6 mg/dL (2.5-4.9)
[2019-05-02] MEDS ORDERED: POTASSIUM PHOSPHATE 30 MM in DEXTROSE 5%-WATER - 250 ML IVPB ONE (08:33)
[2019-05-02] MEDS: MUPIROCIN 2% TOPICAL OINTMENT FOR DECOLONIZATION NS SCH ×2 (09:32→23:17)
[2019-05-02] MEDS: ENOXAPARIN NA (PORCINE) 40 MG/0.4 ML DISP.SYRIN SQ SCH (09:33)
[2019-05-02] MEDS ORDERED: MAGNESIUM OXIDE 400 MG TABLET (FP) PO ONE (10:15)
--- NOTE | 2019-05-02 10:29 | PN ---
Progress Note (short form) - Note Progress Note: Patient is comfortable, family members at bed side, ICU nurse who speaks vietnamese was at bedside helped with translation. Vital Signs Temperature 97.8 F 05/02/19 09:04 Pulse Rate 110 H 05/02/19 08:02 Respiratory Rate 20 05/02/19 08:02 Blood Pressure 129/60 05/02/19 08:02 O2 Sat by Pulse Oximetry (%) 97 05/02/19 09:00 GENERAL: The patient is awake, alert, and fully oriented, in no acute distress. HEAD: Normal with no signs of trauma. EYES: PERRL, extraocular movements intact, sclera anicteric, conjunctiva clear. ENT: Ears normal, oropharynx clear without exudates, moist mucous membranes. NECK: Trachea midline, full range of motion, supple. LUNGS: Breath sounds equal, clear to auscultation bilaterally, no wheezes, no crackles, no accessory muscle use. HEART: tachycardic , S1, S2 positive , no murmur appreciated, rub or gallop. ABDOMEN: Soft, NT,ND, normoactive bowel sounds, no guarding, no rebound, no hepatosplenomegaly, no masses. EXTREMITIES: 2+ pulses, warm, well-perfused, no edema. NEUROLOGICAL: Cranial nerves II through XII grossly intact. Normal speech, gait not observed. PSYCH: Normal mood, normal affect. SKIN: Warm, dry, normal turgor, no rashes or lesions noted CBCD WBC 11.7 K/mm3 (4.0-10.0) H 05/02/19 06:38 RBC 3.45 M/mm3 (3.60-5.2) L 05/02/19 06:38 Hgb 12.2 GM/dL (10.7-15.3) 05/02/19 06:38 Hct 35.6 % (32.4-45.2) D 05/02/19 06:38 MCV 103.3 fl (80-96) H 05/02/19 06:38 MCHC 34.3 g/dl (32.0-36.0) 05/02/19 06:38 RDW 13.3 % (11.6-15.6) 05/02/19 06:38 Plt Count 178 K/MM3 (134-434) 05/02/19 06:38 MPV 9.9 fl (7.5-11.1) 05/02/19 06:38 CMP Sodium 131 mmol/L (136-145) L 05/02/19 06:38 Potassium 3.9 mmol/L (3.5-5.1) 05/02/19 06:38 Chloride 104 mmol/L (98-107) 05/02/19 06:38 Carbon Dioxide 12 mmol/L (21-32) L 05/02/19 06:38 Anion Gap 15 MMOL/L (8-16) 05/02/19 06:38 BUN 7.7 mg/dL (7-18) 05/02/19 06:38 Creatinine 0.5 mg/dL (0.55-1.3) L 05/02/19 06:38 Random Glucose 295 mg/dL (74-106) H 05/02/19 06:38 Calcium 7.3 mg/dL (8.5-10.1) L 05/02/19 06:38 Total Bilirubin 0.6 mg/dL (0.2-1) 05/01/19 20:40 AST 7 U/L (15-37) L 05/01/19 20:40 ALT 14 U/L (13-61) 05/01/19 20:40 Alkaline Phosphatase 136 U/L (45-117) H 05/01/19 20:40 Total Protein 7.0 g/dl (6.4-8.2) 05/01/19 20:40 Albumin 3.2 g/dl (3.4-5.0) L 05/01/19 20:40 CARDIAC ENZYMES Creatine Kinase 22 U/L (26-192) L 05/01/19 20:40 Troponin I < 0.02 ng/ml (0.00-0.05) 05/01/19 20:40 Current Medications Generic Name Dose Route Start Last Admin Trade Name Freq PRN Reason Stop Dose Admin Chlorhexidine Gluconate 1 applic 05/02/19 22:00 Hibiclens For Decolonization - TP HS JULISSA Enoxaparin Sodium 40 mg 05/02/19 10:00 05/02/19 09:33 Lovenox - SQ 40 mg DAILY JULISSA Administration Insulin Human Regular 100 100 mls @ 3.81 mls/hr 05/01/19 22:00 05/01/19 23:06 units/ Sodium Chloride IVPB 0.1 units/kg/hr TITR JULISSA 3.81 mls/hr Administration Protocol 0.1 UNITS/KG/HR Meropenem 1 gm/ Dextrose 100 mls @ 200 mls/hr 05/01/19 23:45 IVPB Q8H-IV JULISSA Meropenem 1 gm/ Dextrose 100 mls @ 100 mls/hr 05/02/19 02:00 05/02/19 09:33 IVPB 05/02/19 18:59 100 mls/hr Q8H-IV JULISSA Administration Dextrose/Sodium Chloride 40 meq in 1,000 mls @ 125 mls/hr 05/02/19 04:15 07/09 06:44 D5-1/2ns+40 Meq Kcl - IV 125 mls/hr ASDIR JULISSA Administration Potassium Phosphate 30 mm/ 260 mls @ 65 mls/hr 05/02/19 08:33 05/02/19 09:26 Dextrose IVPB 05/02/19 12:32 65 mls/hr ONCE ONE Administration 30 MM/4 HR Insulin Aspart 1 vial 05/02/19 07:00 Novolog Vial Sliding Scale - SQ ACHS [facility] Protocol Magnesium Oxide 400 mg 05/02/19 10:15 Mag-Ox - PO 05/02/19 10:16 ONCE ONE Mupirocin 1 applic 05/02/19 10:00 05/02/19 09:32 Bactroban Ointment (For Decolonization) - NS 05/07/19 09:59 1 applic BID JULISSA Administration Home Medications Medication Instructions Recorded Metformin HCl [Metformin HCl ER] 500 mg PO BID 05/01/19 Urine Test Results Urine Color Yellow 05/01/19 22:00 Urine Appearance Cloudy 05/01/19 22:00 Urine pH 5.0 (5.0-8.0) 05/01/19 22:00 Ur Specific [place] 1.033 (1.010-1.035) 05/01/19 22:00 Urine Protein 1+ (NEGATIVE) H 05/01/19 22:00 Urine Glucose (UA) 3+ (NEGATIVE) H 05/01/19 22:00 Urine Ketones 4+ (NEGATIVE) H 05/01/19 22:00 Urine Blood 1+ (NEGATIVE) H 05/01/19 22:00 Urine Nitrite Negative (NEGATIVE) 05/01/19 22:00 Urine Bilirubin Negative (NEGATIVE) 05/01/19 22:00 Ur Leukocyte Esterase Negative (NEGATIVE) 05/01/19 22:00 Microbiology 05/01/19 22:00 Blood - Peripheral Venous Blood Culture - Preliminary Pending Organism 05/01/19 21:30 Blood - Peripheral Venous Blood Culture - Preliminary Pending Organism Assessment and plan: Patient is 58yo vietnamese-speaking female with PMHx history of non-insulin dependent diabetes mellitus presented to the hospital for acute onset shortness of breath that began earlier today around 4pm after she drank two energy drinks. #Gram negative Bacteremia started meropenem as per ID , blood cx and sensitivity is pending. bmp every 4 hrs, ss every 2 hrs, insulin drip continue , titrate as needed up or down. #Diabetic Ketoacidosis: endocrine consult jb Greenberg, on Insulin drip, #Electrolyte imbalance :Pseudohyponatremia: #Hypomagnesemia: replete and adjust accordingly # severe hypophos : repleted level 0.6, DVT Px: lovenox ICU monitoring Visit type - Emergency Visit Emergency Visit: Yes ED Registration Date: 05/01/19 Care time: The patient presented to the Emergency Department on the above date and was hospitalized for further evaluation of their emergent condition. - New Patient This patient is new to me today: Yes Date on this admission: 05/02/19 - Critical Care Critical Care patient: Yes Total Critical Care Time (in minutes): 35 Critical Care Statement: The care of this patient involved high complexity decision making to prevent further life threatening deterioration of the patient 's condition and/or to evaluate & treat vital organ system(s) failure or risk of failure. - Discharge Referral Referred to [facility] Med [facility] No
--- NOTE | 2019-05-02 11:10 | PN ---
Teaching Attending Note Name of Resident: Zoraida Nair ATTENDING PHYSICIAN STATEMENT I saw and evaluated the patient. I reviewed the resident's note and discussed the case with the resident. I agree with the resident's findings and plan as documented. SUBJECTIVE: Patient seen and examined in the ICU. Lethargic but easily arousable and appropriate. Non-specific abdominal tenderness. Denies CP or SOB. Remains on IV Insulin drip. Intake & Output 04/29/19 04/30/19 05/01/19 05/02/19 23:59 23:59 23:59 23:59 Intake Total 837 Balance 837 Weight 84 lb 91 lb 6.4 oz Last Vital Signs Temp Pulse Resp BP Pulse Ox 98.7 F 111 H 20 97/67 97 05/02/19 10:26 05/02/19 10:26 05/02/19 10:26 05/02/19 10:26 05/02/19 09:00 Active Medications Chlorhexidine Gluconate (Hibiclens For Decolonization -) 1 applic TP HS JULISSA Enoxaparin Sodium (Lovenox -) 40 mg SQ DAILY [facility] Last Admin: 05/02/19 09:33 Dose: 40 mg Insulin Human Regular 100 (units/ Sodium Chloride) 100 mls @ 3.81 mls/hr IVPB TITR JULISSA; Protocol Last Titration: 05/02/19 10:00 Dose: 0.13 units/kg/hr, 5 mls/hr Meropenem 1 gm/ Dextrose 100 mls @ 200 mls/hr IVPB Q8H-IV JULISSA Meropenem 1 gm/ Dextrose 100 mls @ 100 mls/hr IVPB Q8H-IV JULISSA Stop: 05/02/19 18:59 Last Admin: 05/02/19 09:33 Dose: 100 mls/hr Dextrose/Sodium Chloride (D5-1/2ns+40 Meq Kcl -) 40 meq in 1,000 mls @ 125 mls/ hr IV ASDIR JULISSA Last Admin: 05/02/19 06:44 Dose: 125 mls/hr Potassium Phosphate 30 mm/ (Dextrose) 260 mls @ 65 mls/hr IVPB ONCE ONE Stop: 05/02/19 12:32 Last Admin: 05/02/19 09:26 Dose: 65 mls/hr Insulin Aspart (Novolog Vial Sliding Scale -) 1 vial SQ ACHS [facility]; Protocol Magnesium Oxide (Mag-Ox -) 400 mg PO ONCE ONE Stop: 05/02/19 10:16 Mupirocin (Bactroban Ointment (For Decolonization) -) 1 applic NS BID [facility] Stop: 05/07/19 09:59 Last Admin: 05/02/19 09:32 Dose: 1 applic GENERAL: Lethargic but arousable, NAD HEAD: Normal with no signs of trauma. EYES: EOMI Sclera Clear EARS, NOSE, THROAT: Dry mucous membranes LUNGS: Clear HEART: S1S2 ABDOMEN: Soft NDNT No HSM LOWER EXTREMITIES: No CCE NEUROLOGICAL: Lethargic, non-focal PSYCHIATRIC: Cooperative. Good eye contact. Appropriate mood and affect. SKIN: Warm, dry, normal turgor, no rashes or lesions noted. Laboratory Results - last 24 hr 05/01/19 05/01/19 05/01/19 20:16 20:36 20:40 WBC 11.6 H RBC 3.98 Hgb 14.2 Hct 42.3 MCV 106.4 H MCH 35.6 H MCHC 33.4 RDW 13.6 Plt Count 212 MPV 10.0 Absolute Neuts (auto) 10.0 H Neutrophils % 86.6 H Neutrophils % (Manual) 86.0 H Band Neutrophils % 1.0 Lymphocytes % 4.8 L Lymphocytes % (Manual) 7.0 L Monocytes % 8.4 Monocytes % (Manual) 5 Eosinophils % 0.0 Eosinophils % (Manual) 0.0 Basophils % 0.2 Basophils % (Manual) 0.0 Myelocytes % (Man) 1 Promyelocytes % (Man) 0 Blast Cells % (Manual) 0 Nucleated RBC % 0 Metamyelocytes 0 Macrocytosis 2+ PT with INR INR VBG pH POC VBG pCO2 POC VBG pO2 VBG HCO3 VBG O2 Sat (Jossy) VBG Base Excess Sodium Potassium Chloride Carbon Dioxide Anion Gap BUN Creatinine Est GFR (CKD-EPI)AfAm Est GFR (CKD-EPI)NonAf POC Glucometer 414 Random Glucose Lactic Acid 1.7 Calcium Magnesium Total Bilirubin AST ALT Alkaline Phosphatase Creatine Kinase Troponin I B-Natriuretic Peptide Total Protein Albumin Beta-Hydroxybutyrate Urine Color Urine Appearance Urine pH Ur Specific [place] Urine Protein Urine Glucose (UA) Urine Ketones Urine Blood Urine Nitrite Urine Bilirubin Urine Urobilinogen Ur Leukocyte Esterase Urine WBC (Auto) Urine RBC (Auto) Urine Casts (Auto) U Epithel Cells (Auto) Urine Bacteria (Auto) Blood Type Antibody Screen 05/01/19 05/01/19 05/01/19 20:40 20:40 20:40 WBC RBC Hgb Hct MCV MCH MCHC RDW Plt Count MPV Absolute Neuts (auto) Neutrophils % Neutrophils % (Manual) Band Neutrophils % Lymphocytes % Lymphocytes % (Manual) Monocytes % Monocytes % (Manual) Eosinophils % Eosinophils % (Manual) Basophils % Basophils % (Manual) Myelocytes % (Man) Promyelocytes % (Man) Blast Cells % (Manual) Nucleated RBC % Metamyelocytes Macrocytosis PT with INR INR VBG pH 7.25 L POC VBG pCO2 22.8 L POC VBG pO2 < 49 H VBG HCO3 9.5 L VBG O2 Sat (Jossy) 80.7 H VBG Base Excess -16.3 L Sodium 126 L Potassium 3.8 Chloride 95 L Carbon Dioxide 10 L Anion Gap 22 H BUN 8.8 Creatinine 0.6 Est GFR (CKD-EPI)AfAm 117.27 Est GFR (CKD-EPI)NonAf 101.18 POC Glucometer Random Glucose 415 H* Lactic Acid Calcium 8.2 L Magnesium 1.6 L Total Bilirubin 0.6 AST 7 L ALT 14 Alkaline Phosphatase 136 H Creatine Kinase 22 L Troponin I < 0.02 B-Natriuretic Peptide 465.6 H Total Protein 7.0 Albumin 3.2 L Beta-Hydroxybutyrate Urine Color Urine Appearance Urine pH Ur Specific [place] Urine Protein Urine Glucose (UA) Urine Ketones Urine Blood Urine Nitrite Urine Bilirubin Urine Urobilinogen Ur Leukocyte Esterase Urine WBC (Auto) Urine RBC (Auto) Urine Casts (Auto) U Epithel Cells (Auto) Urine Bacteria (Auto) Blood Type B POSITIVE Antibody Screen Negative 05/01/19 05/01/19 05/01/19 20:40 20:40 22:00 WBC RBC Hgb Hct MCV MCH MCHC RDW Plt Count MPV Absolute Neuts (auto) Neutrophils % Neutrophils % (Manual) Band Neutrophils % Lymphocytes % Lymphocytes % (Manual) Monocytes % Monocytes % (Manual) Eosinophils % Eosinophils % (Manual) Basophils % Basophils % (Manual) Myelocytes % (Man) Promyelocytes % (Man) Blast Cells % (Manual) Nucleated RBC % Metamyelocytes Macrocytosis PT with INR 12.40 INR 1.05 VBG pH POC VBG pCO2 POC VBG pO2 VBG HCO3 VBG O2 Sat (Jossy) VBG Base Excess Sodium Potassium Chloride Carbon Dioxide Anion Gap BUN Creatinine Est GFR (CKD-EPI)AfAm Est GFR (CKD-EPI)NonAf POC Glucometer Random Glucose Lactic Acid Calcium Magnesium Total Bilirubin AST ALT Alkaline Phosphatase Creatine Kinase Troponin I B-Natriuretic Peptide Total Protein Albumin Beta-Hydroxybutyrate > 46.0 H Urine Color Yellow Urine Appearance Cloudy Urine pH 5.0 Ur Specific [place] 1.033 Urine Protein 1+ H Urine Glucose (UA) 3+ H Urine Ketones 4+ H Urine Blood 1+ H Urine Nitrite Negative Urine Bilirubin Negative Urine Urobilinogen 0.2 Ur Leukocyte Esterase Negative Urine WBC (Auto) 19.4 Urine RBC (Auto) 4 Urine Casts (Auto) 4 U Epithel Cells (Auto) 0.4 Urine Bacteria (Auto) 248.8 Blood Type Antibody Screen Active Medications Generic Name Dose Route Start Last Admin Trade Name Freq PRN Reason Stop Dose Admin Potassium Chloride 10 meq in 100 mls @ 100 mls/hr 05/01/19 21:45 Potassium Chloride 10 Meq Premix Ivpb - IVPB 05/02/19 00:44 Q60M JULISSA Potassium Chloride/Sodium Chloride 20 meq in 1,000 mls @ 1,000 mls/hr 21:45 Ns+20 Meq Kcl - IV ASDIR JULISSA Insulin Human Regular 100 100 mls @ 3.81 mls/hr 05/01/19 22:00 units/ Sodium Chloride IVPB TITR JULISSA Protocol 0.1 UNITS/KG/HR Ceftriaxone Sodium 1,000 mg/ 50 mls @ 100 mls/hr 05/01/19 22:36 Dextrose IVPB 05/01/19 23:05 ONCE ONE ASSESSMENT/PLAN: DKA UTI Lethargy likely due to DKA Insulin drip per protocol Follow BMP and AG O2 as needed VTE prophylaxis PO as tolerated when more awake ABX coverage Requires ICU monitoring while on IV Insulin drip Dr Uriatre Critical care time spent in reviewing chart, evaluating patient and formulating plan - 36 minutes.
--- NOTE | 2019-05-02 11:37 | PN ---
Physical Exam: SUBJECTIVE: Patient seen and examined at bedside with daughter. pt states she is feeling much better today. pt denies SOB and chest pain today. pt denies n/v/ d OBJECTIVE: Vital Signs Period Temp Pulse Resp BP Sys/Crow Pulse Ox Last 24 Hr 97.4 F-98.7 F 110-134 18-31 96-133/56-82 97-97 GENERAL: The patient is awake, alert, and fully oriented, in no acute distress. LUNGS: Breath sounds equal, clear to auscultation bilaterally, no wheezes, no crackles, no accessory muscle use. HEART: Regular rate and rhythm, S1, S2 without murmur, rub or gallop. ABDOMEN: Soft, nontender, nondistended, normoactive bowel sounds, no guarding EXTREMITIES: 2+ pulses, warm, well-perfused, no edema. SKIN: Warm, dry, normal turgor, no rashes or lesions noted Laboratory Last Values WBC 11.7 K/mm3 (4.0-10.0) H 05/02/19 06:38 RBC 3.45 M/mm3 (3.60-5.2) L 05/02/19 06:38 Hgb 12.2 GM/dL (10.7-15.3) 05/02/19 06:38 Hct 35.6 % (32.4-45.2) D 05/02/19 06:38 MCV 103.3 fl (80-96) H 05/02/19 06:38 MCH 35.4 pg (25.7-33.7) H 05/02/19 06:38 MCHC 34.3 g/dl (32.0-36.0) 05/02/19 06:38 RDW 13.3 % (11.6-15.6) 05/02/19 06:38 Plt Count 178 K/MM3 (134-434) 05/02/19 06:38 MPV 9.9 fl (7.5-11.1) 05/02/19 06:38 Absolute Neuts (auto) 9.8 K/mm3 (1.5-8.0) H 05/02/19 06:38 Neutrophils % 83.4 % (42.8-82.8) H 05/02/19 06:38 Neutrophils % (Manual) 86.0 % (42.8-82.8) H 05/01/19 20:40 Band Neutrophils % 1.0 % 05/01/19 20:40 Lymphocytes % 4.8 % (8-40) L 05/02/19 06:38 Lymphocytes % (Manual) 7.0 % (8-40) L 05/01/19 20:40 Monocytes % 11.4 % (3.8-10.2) H 05/02/19 06:38 Monocytes % (Manual) 5 % (3.8-10.2) 05/01/19 20:40 Eosinophils % 0.0 % (0-4.5) 05/02/19 06:38 Eosinophils % (Manual) 0.0 % (0-4.5) 05/01/19 20:40 Basophils % 0.4 % (0-2.0) 05/02/19 06:38 Basophils % (Manual) 0.0 % (0-2.0) 05/01/19 20:40 Myelocytes % (Man) 1 % (0-2) 05/01/19 20:40 Promyelocytes % (Man) 0 % (0-2) 05/01/19 20:40 Blast Cells % (Manual) 0 % (0-0) 05/01/19 20:40 Nucleated RBC % 0 % (0-0) 05/02/19 06:38 Metamyelocytes 0 % (0-2) 05/01/19 20:40 Macrocytosis 2+ 05/01/19 20:40 PT with INR 12.80 SEC (9.7-13.0) 05/02/19 06:38 INR 1.08 (0.83-1.09) 05/02/19 06:38 PTT (Actin FS) 30.3 SECONDS (25.2-36.5) 05/02/19 06:38 VBG pH 7.25 (7.31-7.41) L 05/01/19 20:40 POC VBG pCO2 22.8 mmHg (38-52) L 05/01/19 20:40 POC VBG pO2 < 49 mmHg (28-48) H 05/01/19 20:40 VBG HCO3 9.5 mmol/L (23-29) L 05/01/19 20:40 VBG O2 Sat (Jossy) 80.7 % (70-80) H 05/01/19 20:40 VBG Base Excess -16.3 meq/l (-2-2) L 05/01/19 20:40 Sodium 131 mmol/L (136-145) L 05/02/19 06:38 Potassium 3.9 mmol/L (3.5-5.1) 05/02/19 06:38 Chloride 104 mmol/L (98-107) 05/02/19 06:38 Carbon Dioxide 12 mmol/L (21-32) L 05/02/19 06:38 Anion Gap 15 MMOL/L (8-16) 05/02/19 06:38 BUN 7.7 mg/dL (7-18) 05/02/19 06:38 Creatinine 0.5 mg/dL (0.55-1.3) L 05/02/19 06:38 Est GFR (CKD-EPI)AfAm 124.52 05/02/19 06:38 Est GFR (CKD-EPI)NonAf 107.44 05/02/19 06:38 POC Glucometer 314 UNITS (80-120) 05/02/19 09:14 Random Glucose 295 mg/dL (74-106) H 05/02/19 06:38 Hemoglobin A1c % 14.0 % (4.2-6.3) H 05/02/19 06:38 Serum Osmolality 280 mosm/kg (278-305) 05/02/19 06:38 Lactic Acid 1.7 mmol/L (0.4-2.0) 05/01/19 20:36 Calcium 7.3 mg/dL (8.5-10.1) L 05/02/19 06:38 Phosphorus 0.6 mg/dL (2.5-4.9) L* 05/02/19 06:38 Magnesium 1.6 mg/dL (1.8-2.4) L 05/02/19 06:38 Total Bilirubin 0.6 mg/dL (0.2-1) 05/01/19 20:40 GGT 16 U/L (5-85) 05/02/19 06:38 AST 7 U/L (15-37) L 05/01/19 20:40 ALT 14 U/L (13-61) 05/01/19 20:40 Alkaline Phosphatase 136 U/L (45-117) H 05/01/19 20:40 Creatine Kinase 22 U/L (26-192) L 05/01/19 20:40 Troponin I < 0.02 ng/ml (0.00-0.05) 05/01/19 20:40 B-Natriuretic Peptide 465.6 pg/ml (5-125) H 05/01/19 20:40 Total Protein 7.0 g/dl (6.4-8.2) 05/01/19 20:40 Albumin 3.2 g/dl (3.4-5.0) L 05/01/19 20:40 Serum Folate 17 ng/mL (3.1-17.5) 05/02/19 06:38 Beta-Hydroxybutyrate > 46.0 mg/dL (0.2-2.8) H 05/01/19 20:40 Urine Color Yellow 05/01/19 22:00 Urine Appearance Cloudy 05/01/19 22:00 Urine pH 5.0 (5.0-8.0) 05/01/19 22:00 Ur Specific Ebony 1.033 (1.010-1.035) 05/01/19 22:00 Urine Protein 1+ (NEGATIVE) H 05/01/19 22:00 Urine Glucose (UA) 3+ (NEGATIVE) H 05/01/19 22:00 Urine Ketones 4+ (NEGATIVE) H 05/01/19 22:00 Urine Blood 1+ (NEGATIVE) H 05/01/19 22:00 Urine Nitrite Negative (NEGATIVE) 05/01/19 22:00 Urine Bilirubin Negative (NEGATIVE) 05/01/19 22:00 Urine Urobilinogen 0.2 mg/dL (0.2-1.0) 05/01/19 22:00 Ur Leukocyte Esterase Negative (NEGATIVE) 05/01/19 22:00 Urine WBC (Auto) 19.4 /hpf (0-5) 05/01/19 22:00 Urine RBC (Auto) 4 /hpf (0-4) 05/01/19 22:00 Urine Casts (Auto) 4 /lpf (0-8) 05/01/19 22:00 U Epithel Cells (Auto) 0.4 /HPF (0-5/HPF) 05/01/19 22:00 Urine Bacteria (Auto) 248.8 /hpf (NEGATIVE) 05/01/19 22:00 Blood Type B POSITIVE 05/02/19 06:38 Antibody Screen Negative 05/01/19 20:40 Current Medications Chlorhexidine Gluconate (Hibiclens For Decolonization -) 1 applic TP HS JULISSA Enoxaparin Sodium (Lovenox -) 40 mg SQ DAILY JULISSA Last Admin: 05/02/19 09:33 Dose: 40 mg Insulin Human Regular 100 (units/ Sodium Chloride) 100 mls @ 3.81 mls/hr IVPB TITR JULISSA; Protocol Last Titration: 05/02/19 10:00 Dose: 0.13 units/kg/hr, 5 mls/hr Meropenem 1 gm/ Dextrose 100 mls @ 200 mls/hr IVPB Q8H-IV JULISSA Meropenem 1 gm/ Dextrose 100 mls @ 100 mls/hr IVPB Q8H-IV JULISSA Stop: 05/02/19 18:59 Last Admin: 05/02/19 09:33 Dose: 100 mls/hr Dextrose/Sodium Chloride (D5-1/2ns+40 Meq Kcl -) 40 meq in 1,000 mls @ 125 mls/ hr IV ASDIR [facility] Last Admin: 05/02/19 06:44 Dose: 125 mls/hr Potassium Phosphate 30 mm/ (Dextrose) 260 mls @ 65 mls/hr IVPB ONCE ONE Stop: 05/02/19 12:32 Last Admin: 05/02/19 09:26 Dose: 65 mls/hr Insulin Aspart (Novolog Vial Sliding Scale -) 1 vial SQ ACHS [facility]; Protocol Magnesium Oxide (Mag-Ox -) 400 mg PO ONCE ONE Stop: 05/02/19 10:16 Mupirocin (Bactroban Ointment (For Decolonization) -) 1 applic NS BID [facility] Stop: 05/07/19 09:59 Last Admin: 05/02/19 09:32 Dose: 1 applic ASSESSMENT/PLAN: 58 y/o F with a significant PMH of NIDDM who presented to [facility] due to shortness of breath, chest pain, and palpitations after drinking 2 energy drinks and found to be in DKA. Neuro: awake, alert, oriented x 3 Endo: DKA -initial BGM 415, Anion gap 22, CO2 10, PH 7.25 (VBG), B Hydroxybutyrate > 46. -s/p 5L IVF -Insulin gtt started , continue until gap closed, Bicarb >18, Glucose<250 -BGM Q1H -BMP Q2H -c/w D5 1/5NS IVF -Once Anion gap closed, will bridge with SC insulin for 2 hours. ID:UTI -awaiting cultures -+UA -c/w merrem -ID recs appreciated F/E/N -D5 1/2 NS w/ 40 mEQ -Monitor Electrolytes -hypomagnesemia, repleted -hypophosphatemia, repleted with 30 KPhos -Diabetic Diet DVT ppx: [id number] Dispo: We will continue to follow the patient. Thank you for this consultative opportunity. Visit type - Emergency Visit Emergency Visit: No - New Patient This patient is new to me today: Yes - Critical Care Critical Care patient: Yes Total Critical Care Time (in minutes): 38 Critical Care Statement: The care of this patient involved high complexity decision making to prevent further life threatening deterioration of the patient 's condition and/or to evaluate & treat vital organ system(s) failure or risk of failure. ATTENDING PHYSICIAN STATEMENT I saw and evaluated the patient. I reviewed the resident's note and discussed the case with the resident. I agree with the resident's findings and plan as documented. SUBJECTIVE: OBJECTIVE: ASSESSMENT AND PLAN:
[2019-05-02 11:41] LABS: ANISOCYTOSIS 0; MACROCYTOSIS 0; PLATELET ESTIMATE NORMAL
[2019-05-02] MEDS ORDERED: POTASSIUM CHLORIDE 40 MEQ in SODIUM CHLORIDE 1,000 ML IVPB SCH (12:45)
[2019-05-02 13:00] LABS: BLOOD UREA NITROGEN 6.5 mg/dL (7-18); CALCIUM 7.2 mg/dL (8.5-10.1); CREATININE 0.5 mg/dL (0.55-1.3); POTASSIUM 4.5 mmol/L (3.5-5.1)
[2019-05-02 13:36] LABS: PHOSPHOROUS 2.7 mg/dL (2.5-4.9)
--- NOTE | 2019-05-02 13:50 | CON.ID ---
Consult - History of Present Illness History of Present Illness: 58 y.o. female with PMH of DM presented with c/o weakness, SOB, nausea, and dysuria. She reported feeling "jittery" after drinking energy drinks early in the morning. She normally resides in [place] but has been here for the past month visiting her children. She was noted in the ER to be weak but responsive, tachycardic, with mildly elevated wbc but afebrile. Her glucose was 415. Pt was admitted to the ICU for DKA and possible sepsis. U/A indicative of possible UTI. Currently in the ICU pt remains very weak but feels better. Labs/imaging results reviewed. Blood cultures reveal growth of gram neg organism. No reported abdominal pain/vomiting/diarrhea, CP, current SOB/cough/sore throat. No known recent sick contacts, was feeling well in [place]. 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, CVA, Dementia, Migraine, Multiple Sclerosis, Peripheral Neuropathy, Parkinson's, Seizure, Syncope, TIA, Vertigo, Other Cardio/Vascular: No: AFIB, Aneurysm, Aortic Insufficiency, Aortic Stenosis, CAD , CHF, Deep Vein Thrombosis, HTN, Hyperlipdemia, HI, Mitral Insufficiency, Mitral Stenosis, Murmur, Pulmonary Hypertension, Other Pulmonary: No: Asthma, Bronchitis, Cancer, COPD, O2 Dependent, Pneumonia, Previously Intubated, Pulmonary Embolus, Pulmonary Fibrosis, Sleep Apnea, Other Gastrointestinal: No: Ascites, Cancer, Constipation, Crohn's Disease, Diverticulitis, Diverticulosis, Esophageal Varices, Gastritis, GERD, GI Bleed, Hemorrhoids, Hiatal Hernia, Inflamatory Bowel Disease, Irritable Bowel Disease, Pancreatitis, Peptic Ulcer Disease, Ulcerative Colitis, Other Hepatobiliary: No: Cirrhosis, Cholelithiasis, Cholecystitis, Choledocholithiasis , Hepatitis A, Hepatitis B, Hepatitis C, Other Renal/: No: Renal Failure, Renal Inusuff, BPH, Cancer, Hematuria, Hemodialysis , Neurogenic Bladder, Renal Calculi, UTI, Other Heme/Onc: No: Anemia, B12 Deficiency, Bleeding Disorder, Cancer, Current Chemotherapy, Current Radiation Therapy, Hemochromatosis, Hypercoaguable State, Myeloproliferative Synd, Sickle Cell Disease, Sickle Cell Trait, Thrombocytopenia, Other Infectious Disease: No: AIDS, C-Diff, Herpes Zoster, HIV, MRSA, STD's, Tuberculosis, VREF, Other Psych: No: Addictions, Anxiety, Bipolar, Depression, Panic, Psychosis, Schizophrenia, Other Musculoskeletal: No: Bursitis, Chronic low back pain, Hemiparesis, Hemiplegia, Osteoarthritis, Paraplegia, Other Rheumatology: No: Fibromyalgia, Gout, Lupus, Rheumatoid Arthritis, Sarcoidosis, Vasculitis, Other ENT: No: Allergic Rhinitis, Sinusitis, Other Endocrine: Yes: Diabetes Mellitus Dermatology: No: Basal Cell, Cellulitis, Eczema, Melanoma, Psoriasis, Squamous Cell, Other - Alcohol/Substance Use Hx Alcohol Use: No - Smoking History Smoking history: Never smoked Have you smoked in the past 12 months: No Home Medications - Allergies Allergies/Adverse Reactions: Allergies Allergy/AdvReac Type Severity Reaction Status Date / Time No Known Allergies Allergy Verified 05/01/19 20:10 - Home Medications Home Medications: Ambulatory Orders Metformin HCl [Metformin HCl ER] 500 mg PO BID 05/01/19 Review of Systems - Review of Systems Constitutional: reports: Malaise. denies: No Symptoms, Chills, Diaphoresis, Fever, Lethargy, Loss of Appetite, Night Sweats, Unintentional Wgt. Loss, Weakness, Other Eyes: reports: No Symptoms. denies: Blind Spots, Blurred Vision, Double Vision , Eye Pain, Floaters, Photophobia, Recent Change in Vision, Other HENT: reports: No Symptoms. denies: Difficult Swallowing, Ear Discharge, Ear Pain, Epistaxis, Gingival Bleeding, Hearing Loss, Mouth Swelling, Nasal Congestion, Ocular Prosthesis, Throat Pain, Toothache, Ringing in Ears, Other Neck: reports: No Symptoms. denies: Decreased ROM, Lumps, Pain on Movement, Stiffness, Swollen Glands, Tenderness, Other Cardiovascular: reports: No Symptoms. denies: Chest Pain, Edema, Palpitations, Shortness of Breath, Other Respiratory: reports: No Symptoms. denies: Cough, Exercise Intolerance, Hemoptysis, Orthopnea, PND, Snoring, SOB, SOB on Exertion, Wheezing, Other Gastrointestinal: reports: No Symptoms. denies: Abdominal Pain, Bloating, Constipation, Diarrhea, Dysphagia, Indigestion, Melena, Nausea, Rectal Bleeding , Vomiting, Vomiting Blood, Other Genitourinary: reports: No Symptoms. denies: Burning, Discharge, Dysuria, Flank Pain, Frequency, Hematuria, Incontinence, Lesions, Menses, Pain, Testicular Mass, Testicular Pain, Testicular Swelling, Urgency, Vaginal Bleeding , Other Musculoskeletal: reports: No Symptoms. denies: Back Pain, Crepitus, Decreased ROM, Extremity Pain, Joint Pain, Joint Swelling, Muscle Pain, Muscle Cramps, Muscle Weakness, Other Integumentary: reports: No Symptoms. denies: Blister, Bruising, Change in Color , Eczema, Erythema, Incision, Lesions, Lump, Pallor, Pruritis, Rash, Wound, Other Neurological: reports: No Symptoms. denies: Change in LOC, Change in Speech, Confusion, Dizziness, Headache, Incoordination, Numbness, Parasthesia, Pre- Existing Deficit, Seizure, Syncope, Tremors, Unsteady Gait, Weakness, Other Endocrine: reports: No Symptoms. denies: Excessive Sweating, Flushing, Increased Hunger, Increased Thirst, Intolerance to Cold, Intolerance to Heat, Unexplained Weight Gain, Unexplained Weight Loss, Other Hematology/Lymphatic: reports: No Symptoms. denies: Easily Bruised, Excessive Bleeding, Swollen Glands, Other Psychiatric: reports: No Symptoms. denies: Altered Sleep Pattern, Anxiety, Depression, Hallucinations, Panic, Paranoia, Suicidal, Other Physical Exam Vital Signs: Vital Signs Temperature 98.7 F 05/02/19 10:00 Pulse Rate 108 H 05/02/19 12:00 Respiratory Rate 20 05/02/19 12:00 Blood Pressure 107/62 05/02/19 12:00 O2 Sat by Pulse Oximetry (%) 97 05/02/19 09:00 Constitutional: Yes: Other (generalized weakness) Eyes: Yes: Conjunctiva Clear, EOM Intact HENT: Yes: Atraumatic, Normocephalic Neck: Yes: Supple Cardiovascular: Yes: Tachycardia Respiratory: Yes: CTA Bilaterally Gastrointestinal: Yes: Normal Bowel Sounds, Soft Renal/: Yes: WNL Musculoskeletal: Yes: WNL Extremities: Yes: WNL Edema: No Peripheral Pulses WNL: Yes Integumentary: Yes: WNL Neurological: Yes: Weakness Labs: CBC, BMP 05/02/19 06:38 05/02/19 12:02 Laboratory Tests 05/01/19 05/01/19 05/01/19 20:16 20:36 20:40 WBC 11.6 H RBC 3.98 Hgb 14.2 Hct 42.3 MCV 106.4 H MCH 35.6 H MCHC 33.4 RDW 13.6 Plt Count 212 MPV 10.0 Absolute Neuts (auto) 10.0 H Neutrophils % 86.6 H Neutrophils % (Manual) 86.0 H Band Neutrophils % 1.0 Lymphocytes % 4.8 L Lymphocytes % (Manual) 7.0 L Monocytes % 8.4 Monocytes % (Manual) 5 Eosinophils % 0.0 Eosinophils % (Manual) 0.0 Basophils % 0.2 Basophils % (Manual) 0.0 Myelocytes % (Man) 1 Promyelocytes % (Man) 0 Blast Cells % (Manual) 0 Nucleated RBC % 0 Metamyelocytes 0 Hypochromia Platelet Estimate Platelet Comment Polychromasia Poikilocytosis Anisocytosis Microcytosis Macrocytosis 2+ PT with INR INR PTT (Actin FS) VBG pH POC VBG pCO2 POC VBG pO2 VBG HCO3 VBG O2 Sat (Jossy) VBG Base Excess Sodium Potassium Chloride Carbon Dioxide Anion Gap BUN Creatinine Est GFR (CKD-EPI)AfAm Est GFR (CKD-EPI)NonAf POC Glucometer 414 Random Glucose Hemoglobin A1c % Serum Osmolality Lactic Acid 1.7 Calcium Phosphorus Magnesium Total Bilirubin GGT AST ALT Alkaline Phosphatase Creatine Kinase Troponin I B-Natriuretic Peptide Total Protein Albumin Serum Folate Beta-Hydroxybutyrate Urine Color Urine Appearance Urine pH Ur Specific [place] Urine Protein Urine Glucose (UA) Urine Ketones Urine Blood Urine Nitrite Urine Bilirubin Urine Urobilinogen Ur Leukocyte Esterase Urine WBC (Auto) Urine RBC (Auto) Urine Casts (Auto) U Epithel Cells (Auto) Urine Bacteria (Auto) Blood Type Antibody Screen 05/01/19 05/01/19 05/01/19 20:40 20:40 20:40 WBC RBC Hgb Hct MCV MCH MCHC RDW Plt Count MPV Absolute Neuts (auto) Neutrophils % Neutrophils % (Manual) Band Neutrophils % Lymphocytes % Lymphocytes % (Manual) Monocytes % Monocytes % (Manual) Eosinophils % Eosinophils % (Manual) Basophils % Basophils % (Manual) Myelocytes % (Man) Promyelocytes % (Man) Blast Cells % (Manual) Nucleated RBC % Metamyelocytes Hypochromia Platelet Estimate Platelet Comment Polychromasia Poikilocytosis Anisocytosis Microcytosis Macrocytosis PT with INR INR PTT (Actin FS) VBG pH 7.25 L POC VBG pCO2 22.8 L POC VBG pO2 < 49 H VBG HCO3 9.5 L VBG O2 Sat (Jossy) 80.7 H VBG Base Excess -16.3 L Sodium 126 L Potassium 3.8 Chloride 95 L Carbon Dioxide 10 L Anion Gap 22 H BUN 8.8 Creatinine 0.6 Est GFR (CKD-EPI)AfAm 117.27 Est GFR (CKD-EPI)NonAf 101.18 POC Glucometer Random Glucose 415 H* Hemoglobin A1c % Serum Osmolality Lactic Acid Calcium 8.2 L Phosphorus Magnesium 1.6 L Total Bilirubin 0.6 GGT AST 7 L ALT 14 Alkaline Phosphatase 136 H Creatine Kinase 22 L Troponin I < 0.02 B-Natriuretic Peptide 465.6 H Total Protein 7.0 Albumin 3.2 L Serum Folate Beta-Hydroxybutyrate Urine Color Urine Appearance Urine pH Ur Specific [place] Urine Protein Urine Glucose (UA) Urine Ketones Urine Blood Urine Nitrite Urine Bilirubin Urine Urobilinogen Ur Leukocyte Esterase Urine WBC (Auto) Urine RBC (Auto) Urine Casts (Auto) U Epithel Cells (Auto) Urine Bacteria (Auto) Blood Type B POSITIVE Antibody Screen Negative 05/01/19 05/01/19 05/01/19 20:40 20:40 22:00 WBC RBC Hgb Hct MCV MCH MCHC RDW Plt Count MPV Absolute Neuts (auto) Neutrophils % Neutrophils % (Manual) Band Neutrophils % Lymphocytes % Lymphocytes % (Manual) Monocytes % Monocytes % (Manual) Eosinophils % Eosinophils % (Manual) Basophils % Basophils % (Manual) Myelocytes % (Man) Promyelocytes % (Man) Blast Cells % (Manual) Nucleated RBC % Metamyelocytes Hypochromia Platelet Estimate Platelet Comment Polychromasia Poikilocytosis Anisocytosis Microcytosis Macrocytosis PT with INR 12.40 INR 1.05 PTT (Actin FS) VBG pH POC VBG pCO2 POC VBG pO2 VBG HCO3 VBG O2 Sat (Jossy) VBG Base Excess Sodium Potassium Chloride Carbon Dioxide Anion Gap BUN Creatinine Est GFR (CKD-EPI)AfAm Est GFR (CKD-EPI)NonAf POC Glucometer Random Glucose Hemoglobin A1c % Serum Osmolality Lactic Acid Calcium Phosphorus Magnesium Total Bilirubin GGT AST ALT Alkaline Phosphatase Creatine Kinase Troponin I B-Natriuretic Peptide Total Protein Albumin Serum Folate Beta-Hydroxybutyrate > 46.0 H Urine Color Yellow Urine Appearance Cloudy Urine pH 5.0 Ur Specific [place] 1.033 Urine Protein 1+ H Urine Glucose (UA) 3+ H Urine Ketones 4+ H Urine Blood 1+ H Urine Nitrite Negative Urine Bilirubin Negative Urine Urobilinogen 0.2 Ur Leukocyte Esterase Negative Urine WBC (Auto) 19.4 Urine RBC (Auto) 4 Urine Casts (Auto) 4 U Epithel Cells (Auto) 0.4 Urine Bacteria (Auto) 248.8 Blood Type Antibody Screen 05/02/19 05/02/19 05/02/19 02:50 03:05 04:27 WBC RBC Hgb Hct MCV MCH MCHC RDW Plt Count MPV Absolute Neuts (auto) Neutrophils % Neutrophils % (Manual) Band Neutrophils % Lymphocytes % Lymphocytes % (Manual) Monocytes % Monocytes % (Manual) Eosinophils % Eosinophils % (Manual) Basophils % Basophils % (Manual) Myelocytes % (Man) Promyelocytes % (Man) Blast Cells % (Manual) Nucleated RBC % Metamyelocytes Hypochromia Platelet Estimate Platelet Comment Polychromasia Poikilocytosis Anisocytosis Microcytosis Macrocytosis PT with INR INR PTT (Actin FS) VBG pH POC VBG pCO2 POC VBG pO2 VBG HCO3 VBG O2 Sat (Jossy) VBG Base Excess Sodium 134 L Potassium 3.5 Chloride 105 Carbon Dioxide 14 L Anion Gap 15 BUN 7.6 Creatinine 0.7 Est GFR (CKD-EPI)AfAm 111.47 Est GFR (CKD-EPI)NonAf 96.18 POC Glucometer 126 240 Random Glucose 140 H Hemoglobin A1c % Serum Osmolality Lactic Acid Calcium 7.6 L Phosphorus Magnesium Total Bilirubin GGT AST ALT Alkaline Phosphatase Creatine Kinase Troponin I B-Natriuretic Peptide Total Protein Albumin Serum Folate Beta-Hydroxybutyrate Urine Color Urine Appearance Urine pH Ur Specific [place] Urine Protein Urine Glucose (UA) Urine Ketones Urine Blood Urine Nitrite Urine Bilirubin Urine Urobilinogen Ur Leukocyte Esterase Urine WBC (Auto) Urine RBC (Auto) Urine Casts (Auto) U Epithel Cells (Auto) Urine Bacteria (Auto) Blood Type Antibody Screen 05/02/19 05/02/19 05/02/19 06:38 06:38 06:38 WBC 11.7 H RBC 3.45 L Hgb 12.2 Hct 35.6 D MCV 103.3 H MCH 35.4 H MCHC 34.3 RDW 13.3 Plt Count 178 MPV 9.9 Absolute Neuts (auto) 9.8 H Neutrophils % 83.4 H Neutrophils % (Manual) 61.0 Band Neutrophils % 20.0 Lymphocytes % 4.8 L Lymphocytes % (Manual) 8.0 Monocytes % 11.4 H Monocytes % (Manual) 5 Eosinophils % 0.0 Eosinophils % (Manual) 0.0 Basophils % 0.4 Basophils % (Manual) 0.0 Myelocytes % (Man) 1 Promyelocytes % (Man) 2 D Blast Cells % (Manual) 0 Nucleated RBC % 0 Metamyelocytes 1 D Hypochromia 0 Platelet Estimate Normal Platelet Comment Present Polychromasia 0 Poikilocytosis 0 Anisocytosis 0 Microcytosis 0 Macrocytosis 0 PT with INR 12.80 INR 1.08 PTT (Actin FS) 30.3 VBG pH POC VBG pCO2 POC VBG pO2 VBG HCO3 VBG O2 Sat (Jossy) VBG Base Excess Sodium Potassium Chloride Carbon Dioxide Anion Gap BUN Creatinine Est GFR (CKD-EPI)AfAm Est GFR (CKD-EPI)NonAf POC Glucometer Random Glucose Hemoglobin A1c % Serum Osmolality Lactic Acid Calcium Phosphorus Magnesium Total Bilirubin GGT AST ALT Alkaline Phosphatase Creatine Kinase Troponin I B-Natriuretic Peptide Total Protein Albumin Serum Folate Beta-Hydroxybutyrate Urine Color Urine Appearance Urine pH Ur Specific [place] Urine Protein Urine Glucose (UA) Urine Ketones Urine Blood Urine Nitrite Urine Bilirubin Urine Urobilinogen Ur Leukocyte Esterase Urine WBC (Auto) Urine RBC (Auto) Urine Casts (Auto) U Epithel Cells (Auto) Urine Bacteria (Auto) Blood Type B POSITIVE Antibody Screen 05/02/19 05/02/19 05/02/19 06:38 06:38 07:05 WBC RBC Hgb Hct MCV MCH MCHC RDW Plt Count MPV Absolute Neuts (auto) Neutrophils % Neutrophils % (Manual) Band Neutrophils % Lymphocytes % Lymphocytes % (Manual) Monocytes % Monocytes % (Manual) Eosinophils % Eosinophils % (Manual) Basophils % Basophils % (Manual) Myelocytes % (Man) Promyelocytes % (Man) Blast Cells % (Manual) Nucleated RBC % Metamyelocytes Hypochromia Platelet Estimate Platelet Comment Polychromasia Poikilocytosis Anisocytosis Microcytosis Macrocytosis PT with INR INR PTT (Actin FS) VBG pH POC VBG pCO2 POC VBG pO2 VBG HCO3 VBG O2 Sat (Jossy) VBG Base Excess Sodium 131 L Potassium 3.9 Chloride 104 Carbon Dioxide 12 L Anion Gap 15 BUN 7.7 Creatinine 0.5 L Est GFR (CKD-EPI)AfAm 124.52 Est GFR (CKD-EPI)NonAf 107.44 POC Glucometer 262 Random Glucose 295 H Hemoglobin A1c % 14.0 H Serum Osmolality 280 Lactic Acid Calcium 7.3 L Phosphorus 0.6 L* Magnesium 1.6 L Total Bilirubin GGT 16 AST ALT Alkaline Phosphatase Creatine Kinase Troponin I B-Natriuretic Peptide Total Protein Albumin Serum Folate 17 Beta-Hydroxybutyrate Urine Color Urine Appearance Urine pH Ur Specific [place] Urine Protein Urine Glucose (UA) Urine Ketones Urine Blood Urine Nitrite Urine Bilirubin Urine Urobilinogen Ur Leukocyte Esterase Urine WBC (Auto) Urine RBC (Auto) Urine Casts (Auto) U Epithel Cells (Auto) Urine Bacteria (Auto) Blood Type Antibody Screen 05/02/19 05/02/19 05/02/19 08:22 09:14 11:22 WBC RBC Hgb Hct MCV MCH MCHC RDW Plt Count MPV Absolute Neuts (auto) Neutrophils % Neutrophils % (Manual) Band Neutrophils % Lymphocytes % Lymphocytes % (Manual) Monocytes % Monocytes % (Manual) Eosinophils % Eosinophils % (Manual) Basophils % Basophils % (Manual) Myelocytes % (Man) Promyelocytes % (Man) Blast Cells % (Manual) Nucleated RBC % Metamyelocytes Hypochromia Platelet Estimate Platelet Comment Polychromasia Poikilocytosis Anisocytosis Microcytosis Macrocytosis PT with INR INR PTT (Actin FS) VBG pH POC VBG pCO2 POC VBG pO2 VBG HCO3 VBG O2 Sat (Jossy) VBG Base Excess Sodium Potassium Chloride Carbon Dioxide Anion Gap BUN Creatinine Est GFR (CKD-EPI)AfAm Est GFR (CKD-EPI)NonAf POC Glucometer 357 314 315 Random Glucose Hemoglobin A1c % Serum Osmolality Lactic Acid Calcium Phosphorus Magnesium Total Bilirubin GGT AST ALT Alkaline Phosphatase Creatine Kinase Troponin I B-Natriuretic Peptide Total Protein Albumin Serum Folate Beta-Hydroxybutyrate Urine Color Urine Appearance Urine pH Ur Specific [place] Urine Protein Urine Glucose (UA) Urine Ketones Urine Blood Urine Nitrite Urine Bilirubin Urine Urobilinogen Ur Leukocyte Esterase Urine WBC (Auto) Urine RBC (Auto) Urine Casts (Auto) U Epithel Cells (Auto) Urine Bacteria (Auto) Blood Type Antibody Screen 05/02/19 05/02/19 12:02 12:36 WBC RBC Hgb Hct MCV MCH MCHC RDW Plt Count MPV Absolute Neuts (auto) Neutrophils % Neutrophils % (Manual) Band Neutrophils % Lymphocytes % Lymphocytes % (Manual) Monocytes % Monocytes % (Manual) Eosinophils % Eosinophils % (Manual) Basophils % Basophils % (Manual) Myelocytes % (Man) Promyelocytes % (Man) Blast Cells % (Manual) Nucleated RBC % Metamyelocytes Hypochromia Platelet Estimate Platelet Comment Polychromasia Poikilocytosis Anisocytosis Microcytosis Macrocytosis PT with INR INR PTT (Actin FS) VBG pH POC VBG pCO2 POC VBG pO2 VBG HCO3 VBG O2 Sat (Jossy) VBG Base Excess Sodium 129 L Potassium 4.5 Chloride 102 Carbon Dioxide 14 L Anion Gap 13 BUN 6.5 L Creatinine 0.5 L Est GFR (CKD-EPI)AfAm 124.52 Est GFR (CKD-EPI)NonAf 107.44 POC Glucometer 314 Random Glucose 327 H Hemoglobin A1c % Serum Osmolality Lactic Acid Calcium 7.2 L Phosphorus 2.7 Magnesium Total Bilirubin GGT AST ALT Alkaline Phosphatase Creatine Kinase Troponin I B-Natriuretic Peptide Total Protein Albumin Serum Folate Beta-Hydroxybutyrate Urine Color Urine Appearance Urine pH Ur Specific [place] Urine Protein Urine Glucose (UA) Urine Ketones Urine Blood Urine Nitrite Urine Bilirubin Urine Urobilinogen Ur Leukocyte Esterase Urine WBC (Auto) Urine RBC (Auto) Urine Casts (Auto) U Epithel Cells (Auto) Urine Bacteria (Auto) Blood Type Antibody Screen Microbiology 05/01/19 22:00 Blood - Peripheral Venous Blood Culture - Preliminary Pending Organism 05/01/19 21:30 Blood - Peripheral Venous Blood Culture - Preliminary Pending Organism Imaging - Results Chest X-ray: Report Reviewed Assessment/Plan 58 y.o. female with PMH of DM presented with c/o weakness, SOB, nausea, and dysuria Sepsis Gram Negative Bacteremia UTI DKA -- continue Meropenem empirically for now -- f/u blood and urine culture results, serologies -- management of DKA per CCU -- monitor vitals, Pt is currently tachycardic and weak Chart reviewed, labs/imaging results noted, case discussed with family at bedside Will follow Thank you cc time: 45 min
--- NOTE | 2019-05-02 14:58 | EKG ---
Test Reason : Blood Pressure : / mmHG Vent. Rate : 130 BPM Atrial Rate : 130 BPM P-R Int : 104 ms QRS Dur : 084 ms QT Int : 394 ms P-R-T Axes : -78 072 050 degrees QTc Int : 579 ms UNUSUAL P AXIS AND SHORT OR, PROBABLE JUNCTIONAL TACHYCARDIA CANNOT RULE OUT ANTERIOR INFARCT , AGE UNDETERMINED ABNORMAL ECG NO PREVIOUS ECGS AVAILABLE Confirmed by Sandie Crowell ([id number]) on 05/02/2019 2:57:58 PM Referred By: Confirmed By:Sandie Crowell
--- NOTE | 2019-05-02 15:54 | CONSULT ---
Consult Consult Specialty:: Endocrinology Referred by:: Dr Nicole Reason for Consultation:: DKA - History of Present Illness Chief Complaint: SOB History of Present Illness: This is a 58 year old indian-speaking female with a history of non-insulin dependent diabetes mellitus ( on Metformin at [facility]) who presented to the hospital for acute onset shortness of breath that began around 4pm yesterday after she drank two energy drinks. Reports that she became so dyspneic she had to come to the hospital.Patient recently traveled here from [place] and plans to leave next month. Reports never experiencing these symptoms in the past. She is compliant with her medications at home. Was diagnosed in the ED with diabetic ketoacidosis; patient was started on fluids and insulin drip. Denied any chest pain, nausea, vomiting, diarrhea, fevers or chills, abdominal pain. C/o pain on urination on Saturday. Currently denies any urinary symptoms. 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, CVA, Dementia, Migraine, Multiple Sclerosis, Peripheral Neuropathy, Parkinson's, Seizure, Syncope, TIA, Vertigo, Other Cardio/Vascular: No: AFIB, Aneurysm, Aortic Insufficiency, Aortic Stenosis, CAD , CHF, Deep Vein Thrombosis, HTN, Hyperlipdemia, NE, Mitral Insufficiency, Mitral Stenosis, Murmur, Pulmonary Hypertension, Other Pulmonary: No: Asthma, Bronchitis, Cancer, COPD, O2 Dependent, Pneumonia, Previously Intubated, Pulmonary Embolus, Pulmonary Fibrosis, Sleep Apnea, Other Gastrointestinal: No: Ascites, Cancer, Constipation, Crohn's Disease, Diverticulitis, Diverticulosis, Esophageal Varices, Gastritis, GERD, GI Bleed, Hemorrhoids, Hiatal Hernia, Inflamatory Bowel Disease, Irritable Bowel Disease, Pancreatitis, Peptic Ulcer Disease, Ulcerative Colitis, Other Hepatobiliary: No: Cirrhosis, Cholelithiasis, Cholecystitis, Choledocholithiasis , Hepatitis A, Hepatitis B, Hepatitis C, Other Renal/: No: Renal Failure, Renal Inusuff, BPH, Cancer, Hematuria, Hemodialysis , Neurogenic Bladder, Renal Calculi, UTI, Other Infectious Disease: No: AIDS, C-Diff, Herpes Zoster, HIV, MRSA, STD's, Tuberculosis, VREF, Other Psych: No: Addictions, Anxiety, Bipolar, Depression, Panic, Psychosis, Schizophrenia, Other Musculoskeletal: No: Bursitis, Chronic low back pain, Hemiparesis, Hemiplegia, Osteoarthritis, Paraplegia, Other Rheumatology: No: Fibromyalgia, Gout, Lupus, Rheumatoid Arthritis, Sarcoidosis, Vasculitis, Other ENT: No: Allergic Rhinitis, Sinusitis, Other Endocrine: Yes: Diabetes Mellitus Dermatology: No: Basal Cell, Cellulitis, Eczema, Melanoma, Psoriasis, Squamous Cell, Other - Alcohol/Substance Use Hx Alcohol Use: No - Smoking History Smoking history: Never smoked Have you smoked in the past 12 months: No Home Medications - Allergies Allergies/Adverse Reactions: Allergies Allergy/AdvReac Type Severity Reaction Status Date / Time No Known Allergies Allergy Verified 05/01/19 20:10 - Home Medications Home Medications: Ambulatory Orders Metformin HCl [Metformin HCl ER] 500 mg PO BID 05/01/19 Family Medical History Family Hx Diabetes: Brother Review of Systems - Review of Systems Constitutional: reports: Loss of Appetite, Malaise Eyes: reports: No Symptoms HENT: reports: No Symptoms Neck: reports: No Symptoms Cardiovascular: reports: No Symptoms Respiratory: reports: No Symptoms Gastrointestinal: reports: No Symptoms Genitourinary: reports: No Symptoms Musculoskeletal: reports: No Symptoms Neurological: reports: No Symptoms Endocrine: reports: No Symptoms Physical Exam Vital Signs: Vital Signs Temperature 98.7 F 05/02/19 10:00 Pulse Rate 108 H 05/02/19 12:00 Respiratory Rate 20 05/02/19 12:00 Blood Pressure 107/62 05/02/19 12:00 O2 Sat by Pulse Oximetry (%) 97 05/02/19 09:00 Constitutional: Yes: No Distress, Calm Eyes: Yes: Conjunctiva Clear, EOM Intact HENT: Yes: Atraumatic, Normocephalic Neck: Yes: Supple, Trachea Midline Cardiovascular: Yes: Regular Rate and Rhythm, Tachycardia Respiratory: Yes: Regular, CTA Bilaterally Gastrointestinal: Yes: Normal Bowel Sounds, Soft Musculoskeletal: Yes: WNL Extremities: Yes: WNL Edema: No Neurological: Yes: Alert, Oriented Labs: CBC, BMP 05/02/19 06:38 05/02/19 12:02 Assessment/Plan AP: DKA DM Sepsis/UTI A gap normalized but CO2 still 14 probably sec to underlying sepsis ID consult noted Insulin drip per protocol Follow BMP and AG Electrolyte replacement as necessary O2 as needed Continue Meropenem Continue ICU monitoring Discussed with housestaff.
[2019-05-02] MEDS ORDERED: SODIUM CHLORIDE 1,000 ML IV STA ×3 (16:09→19:27)
[2019-05-02] MEDS: ACETAMINOPHEN 1000 MG/100 ML VIAL (NON FORMULARY) IVPB PRN (16:23)
[2019-05-02 17:45] LABS: BLOOD UREA NITROGEN 5.8 mg/dL (7-18); CREATININE 0.4 mg/dL (0.55-1.3); POTASSIUM 3.6 mmol/L (3.5-5.1)
[2019-05-02 17:49] LABS: CALCIUM 6.6 mg/dL (8.5-10.1)
[2019-05-02] MEDS ORDERED: POTASSIUM PHOSPHATE 30 MM in SODIUM CHLORIDE 500 ML IVPB ONE (18:00)
[2019-05-02] MEDS ORDERED: NOREPINEPHRINE BITARTRATE 4 MG/4 ML ML IV ONE (18:03)
--- NOTE | 2019-05-02 18:44 | PROC ---
Central Line Insertion Indication: Sepsis, Vasopressor Risks and Benefits Explained: Yes Consent on Chart: Yes (translator and interpreter [id number]) Central Line: Triple Lumen Catheter Anesthesia: 1% Lidocaine Sterile Technique: Yes Ultrasound Guided Assistance: Yes Position: Right Internal Jugular Post Insertion: Yes: Bilateral Chest Expansion, Chest X-Ray Ordered Sterile Dressing Applied: Yes Remarks: Supervised by Dr. Solomon Used Seldinger technique. Guidewire removed and intact. CXR is done to confirm location. vitals stable throughout procedure.
[2019-05-02] MEDS ORDERED: VANCOMYCIN 1 GRAM (PRE-DOCKED) 1,000 MG/250 ML BAG IVPB ONE (18:54)
--- NOTE | 2019-05-02 19:12 | HOSP ---
Subjective - Review of Symptoms Events since last encounter: I was notified that the patient is not doing well is in septic shock despite patient received Meropenem as per ID, will add one dose of vancomycin, gentamicin for double gram coverage. discussed with ID in details. will get CT abdomen and pelvis to r/o abscess, US of the kidneys and echo is pending. Physical Examination Vital Signs: Vital Signs Temperature 99.7 F H 05/02/19 17:00 Pulse Rate 109 H 05/02/19 17:00 Respiratory Rate 26 H 05/02/19 18:00 Blood Pressure 82/49 L 05/02/19 18:00 O2 Sat by Pulse Oximetry (%) 97 05/02/19 09:00 Labs: CBC, BMP 05/02/19 06:38 05/02/19 16:30
[2019-05-02] MEDS ORDERED: SODIUM CHLORIDE 1,000 ML IV SCH (19:30)
[2019-05-02] MEDS ORDERED: FLUCONAZOLE 400 MG/D5W 200 ML IVPB ONE (20:00)
[2019-05-02] MEDS ORDERED: DEXTROSE 5% IVPB ONE (20:15)
[2019-05-02] MEDS ORDERED: WATER IVPB ONE (20:15)
[2019-05-02] MEDS ORDERED: POTASSIUM ACETATE IVPB ONE (20:15)
[2019-05-02] MEDS ORDERED: MIDAZOLAM HCL 2 MG/2 ML SINGLE DOSE VIAL IVPUSH ONE (21:17)
[2019-05-02] MEDS ORDERED: PT OWN MED DRAWER 7, Y5N ONE (22:27)
[2019-05-02 22:42] LABS: BLOOD UREA NITROGEN 3.2 mg/dL (7-18); CREATININE 0.2 mg/dL (0.55-1.3)
[2019-05-02 22:45] LABS: CALCIUM 6.2 mg/dL (8.5-10.1); POTASSIUM 2.6 mmol/L (3.5-5.1)
[2019-05-02] MEDS: SODIUM CHLORIDE IVPB SCH (23:16)
[2019-05-02] MEDS: GENTAMICIN IVPB SCH (23:16)
[2019-05-02] MEDS: CHLORHEXIDINE GLUCONATE 4% CLEANSER FOR DECOLONIZATION TP SCH (23:17)
[2019-05-02] MEDS: INSULIN REGULAR 100 UNITS in SODIUM CHLORIDE 99 ML IVPB SCH (23:17)
[2019-05-03] MEDS ORDERED: SODIUM CHLORIDE 1,000 ML IV STA ×2 (00:01→10:50)
[2019-05-03] MEDS: KCL 10 MEQ IVPB 10 MEQ/100 ML INFUS.BAG IVPB SCH ×2 (00:25→03:30)
--- NOTE | 2019-05-03 00:36 | PN ---
Progress Note, Physician Chief Complaint: CT scan chest and abdomen finding: small bilateral pleural effusion with overlay atelectasis larger on the right side loculated pleural fluids within upper portion of right major fissure sub-segmental atelectasis in the right middle and bilateral lower lobes. small pericardial effusion pull central line about 5 cm (done ) anasacra in the body wall soft tissue mild ascities ascending and transverse colon colitis CT head : 9 mm left basal ganglia hypodensity possible lacunar infarct age is indeterminate chronic microvascular ischemic changes , normal patiño white matter differentiation. - Current Medication List Current Medications: Active Medications Acetaminophen (Ofirmev Injection -) 600 mg IVPB Q6H PRN PRN Reason: FEVER Last Admin: 05/02/19 16:23 Dose: 600 mg Chlorhexidine Gluconate (Hibiclens For Decolonization -) 1 applic TP HS JULISSA Last Admin: 05/02/19 23:17 Dose: 1 applic Enoxaparin Sodium (Lovenox -) 40 mg SQ DAILY JULISSA Last Admin: 05/02/19 09:33 Dose: 40 mg Insulin Human Regular 100 (units/ Sodium Chloride) 100 mls @ 3.81 mls/hr IVPB TITR JULISSA; Protocol Last Admin: 05/02/19 23:17 Dose: 0.28 units/kg/hr, 11 mls/hr Meropenem 1 gm/ Dextrose 100 mls @ 200 mls/hr IVPB Q8H-IV JULISSA Last Admin: 05/02/19 22:50 Dose: 200 mls/hr Gentamicin Sulfate 200 mg/ (Sodium Chloride) 100 mls @ 100 mls/hr IVPB Q24H JULISSA ; Protocol Last Admin: 05/02/19 23:16 Dose: 100 mls/hr Sodium Chloride (Normal Saline -) 1,000 mls @ 250 mls/hr IV ASDIR JULISSA Last Admin: 05/02/19 22:50 Dose: 250 mls/hr Potassium Chloride/Dextrose/Sod Cl (D5-1/2ns+20 Meq Kcl -) 20 meq in 1,000 mls @ 100 mls/hr IV ASDIR JULISSA Last Admin: 05/02/19 22:51 Dose: 100 mls/hr Potassium Chloride (Potassium Chloride 10 Meq Premix Ivpb -) 10 meq in 100 mls @ 100 mls/hr IVPB Q60M JULISSA Stop: 05/03/19 02:14 Sodium Chloride (Normal Saline -) 1,000 mls @ 1,000 mls/hr IV ASDIR STA Stop: 05/03/19 01:00 Mupirocin (Bactroban Ointment (For Decolonization) -) 1 applic NS BID JULISSA Stop: 05/07/19 09:59 Last Admin: 05/02/19 23:17 Dose: 1 applic - Objective Vital Signs: Vital Signs Temperature 99.7 F H 05/02/19 17:00 Pulse Rate 115 H 05/03/19 00:16 Respiratory Rate 26 H 05/03/19 00:16 Blood Pressure 90/49 L 05/03/19 00:16 O2 Sat by Pulse Oximetry (%) 99 05/02/19 21:00 Labs: CBC, BMP 05/02/19 06:38 05/02/19 22:00 INR, PTT INR 1.08 (0.83-1.09) 05/02/19 06:38
[2019-05-03] MEDS: MEROPENEM 1 GM in DEXTROSE 5%-WATER 100 ML IVPB SCH ×4 (02:30→19:04)
[2019-05-03] MEDS ORDERED: PT OWN MED DRAWER 7, Y5N ONE ×6 (03:12→20:36)
[2019-05-03 03:18] LABS: CREATININE 0.2 mg/dL (0.55-1.3); POTASSIUM 3.7 mmol/L (3.5-5.1)
[2019-05-03 03:26] LABS: BLOOD UREA NITROGEN 2.2 mg/dL (7-18); CALCIUM 6.3 mg/dL (8.5-10.1)
[2019-05-03] MEDS: ACETAMINOPHEN 1000 MG/100 ML VIAL (NON FORMULARY) IVPB PRN ×2 (07:23→20:52)
[2019-05-03 07:56] LABS: BASO % 0.2 % (0-2.0); EOS % 0.1 % (0-4.5); HEMATOCRIT 36.3 % (32.4-45.2); HEMOGLOBIN 12.6 GM/dL (10.7-15.3); MCH 35.3 pg (25.7-33.7); MCHC 34.8 g/dl (32.0-36.0); MEAN CELL VOLUME 101.4 fl (80-96); MEAN PLT VOLUME 9.6 fl (7.5-11.1); MONO % 6.6 % (3.8-10.2); NEUT % 87.1 % (42.8-82.8); PLATELET COUNT 140 K/MM3 (134-434); RBC 3.58 M/mm3 (3.60-5.2); RDW 13.4 % (11.6-15.6); WHITE BLOOD COUNT 8.1 K/mm3 (4.0-10.0)
--- NOTE | 2019-05-03 08:07 | PN ---
Physical Exam: SUBJECTIVE: Patient seen and examined at bedside. Per nurse, patient tachycardic throughout the night. Fevers yesterday but currently afebrile. No chest pain, SOB, nausea, vomiting, diarrhea, fevers, chills. OBJECTIVE: Vital Signs Period Temp Pulse Resp BP Sys/Crow Pulse Ox Last 24 Hr 97.8 F-102.5 F 98-128 18-31 80-118/49-76 97-99 GENERAL: A&Ox3, mild distress ENT: Dry mucus membranes LUNGS: CTA HEART: tachycardic, no murmurs ABDOMEN: Soft, nontender, BS present MUSCULOSKELETAL: No CVA Tenderness EXTREMITIES: 2+ pulses, no edema. Laboratory Results - last 24 hr 05/02/19 05/02/19 05/02/19 06:38 06:38 06:38 WBC RBC Hgb Hct MCV MCH MCHC RDW Plt Count MPV Absolute Neuts (auto) Neutrophils % Neutrophils % (Manual) 61.0 Band Neutrophils % 20.0 Lymphocytes % Lymphocytes % (Manual) 8.0 Monocytes % Monocytes % (Manual) 5 Eosinophils % Eosinophils % (Manual) 0.0 Basophils % Basophils % (Manual) 0.0 Myelocytes % (Man) 1 Promyelocytes % (Man) 2 D Blast Cells % (Manual) 0 Nucleated RBC % Metamyelocytes 1 D Hypochromia 0 Platelet Estimate Normal Platelet Comment Present Polychromasia 0 Poikilocytosis 0 Anisocytosis 0 Microcytosis 0 Macrocytosis 0 PTT (Actin FS) 30.3 Sodium Potassium Chloride Carbon Dioxide Anion Gap BUN Creatinine Est GFR (CKD-EPI)AfAm Est GFR (CKD-EPI)NonAf POC Glucometer Random Glucose Serum Osmolality Lactic Acid Calcium Phosphorus Magnesium GGT Serum Folate Blood Type B POSITIVE 05/02/19 05/02/19 05/02/19 06:38 08:22 09:14 WBC RBC Hgb Hct MCV MCH MCHC RDW Plt Count MPV Absolute Neuts (auto) Neutrophils % Neutrophils % (Manual) Band Neutrophils % Lymphocytes % Lymphocytes % (Manual) Monocytes % Monocytes % (Manual) Eosinophils % Eosinophils % (Manual) Basophils % Basophils % (Manual) Myelocytes % (Man) Promyelocytes % (Man) Blast Cells % (Manual) Nucleated RBC % Metamyelocytes Hypochromia Platelet Estimate Platelet Comment Polychromasia Poikilocytosis Anisocytosis Microcytosis Macrocytosis PTT (Actin FS) Sodium 131 L Potassium 3.9 Chloride 104 Carbon Dioxide 12 L Anion Gap 15 BUN 7.7 Creatinine 0.5 L Est GFR (CKD-EPI)AfAm 124.52 Est GFR (CKD-EPI)NonAf 107.44 POC Glucometer 357 314 Random Glucose 295 H Serum Osmolality 280 Lactic Acid Calcium 7.3 L Phosphorus 0.6 L* Magnesium 1.6 L GGT 16 Serum Folate 17 Blood Type 05/02/19 05/02/19 05/02/19 11:22 12:02 12:36 WBC RBC Hgb Hct MCV MCH MCHC RDW Plt Count MPV Absolute Neuts (auto) Neutrophils % Neutrophils % (Manual) Band Neutrophils % Lymphocytes % Lymphocytes % (Manual) Monocytes % Monocytes % (Manual) Eosinophils % Eosinophils % (Manual) Basophils % Basophils % (Manual) Myelocytes % (Man) Promyelocytes % (Man) Blast Cells % (Manual) Nucleated RBC % Metamyelocytes Hypochromia Platelet Estimate Platelet Comment Polychromasia Poikilocytosis Anisocytosis Microcytosis Macrocytosis PTT (Actin FS) Sodium 129 L Potassium 4.5 Chloride 102 Carbon Dioxide 14 L Anion Gap 13 BUN 6.5 L Creatinine 0.5 L Est GFR (CKD-EPI)AfAm 124.52 Est GFR (CKD-EPI)NonAf 107.44 POC Glucometer 315 314 Random Glucose 327 H Serum Osmolality Lactic Acid Calcium 7.2 L Phosphorus 2.7 Magnesium GGT Serum Folate Blood Type 05/02/19 05/02/19 05/02/19 14:23 15:27 16:30 WBC RBC Hgb Hct MCV MCH MCHC RDW Plt Count MPV Absolute Neuts (auto) Neutrophils % Neutrophils % (Manual) Band Neutrophils % Lymphocytes % Lymphocytes % (Manual) Monocytes % Monocytes % (Manual) Eosinophils % Eosinophils % (Manual) Basophils % Basophils % (Manual) Myelocytes % (Man) Promyelocytes % (Man) Blast Cells % (Manual) Nucleated RBC % Metamyelocytes Hypochromia Platelet Estimate Platelet Comment Polychromasia Poikilocytosis Anisocytosis Microcytosis Macrocytosis PTT (Actin FS) Sodium 133 L Potassium 3.6 Chloride 106 Carbon Dioxide 13 L Anion Gap 13 BUN 5.8 L Creatinine 0.4 L Est GFR (CKD-EPI)AfAm 134.00 Est GFR (CKD-EPI)NonAf 115.62 POC Glucometer 290 315 Random Glucose 275 H Serum Osmolality Lactic Acid Calcium 6.6 L* Phosphorus Magnesium GGT Serum Folate Blood Type 05/02/19 05/02/19 05/02/19 16:30 16:39 17:47 WBC RBC Hgb Hct MCV MCH MCHC RDW Plt Count MPV Absolute Neuts (auto) Neutrophils % Neutrophils % (Manual) Band Neutrophils % Lymphocytes % Lymphocytes % (Manual) Monocytes % Monocytes % (Manual) Eosinophils % Eosinophils % (Manual) Basophils % Basophils % (Manual) Myelocytes % (Man) Promyelocytes % (Man) Blast Cells % (Manual) Nucleated RBC % Metamyelocytes Hypochromia Platelet Estimate Platelet Comment Polychromasia Poikilocytosis Anisocytosis Microcytosis Macrocytosis PTT (Actin FS) Sodium Potassium Chloride Carbon Dioxide Anion Gap BUN Creatinine Est GFR (CKD-EPI)AfAm Est GFR (CKD-EPI)NonAf POC Glucometer 252 256 Random Glucose Serum Osmolality Lactic Acid 0.7 Calcium Phosphorus Magnesium GGT Serum Folate Blood Type 05/02/19 05/02/19 05/02/19 19:07 20:39 21:59 WBC RBC Hgb Hct MCV MCH MCHC RDW Plt Count MPV Absolute Neuts (auto) Neutrophils % Neutrophils % (Manual) Band Neutrophils % Lymphocytes % Lymphocytes % (Manual) Monocytes % Monocytes % (Manual) Eosinophils % Eosinophils % (Manual) Basophils % Basophils % (Manual) Myelocytes % (Man) Promyelocytes % (Man) Blast Cells % (Manual) Nucleated RBC % Metamyelocytes Hypochromia Platelet Estimate Platelet Comment Polychromasia Poikilocytosis Anisocytosis Microcytosis Macrocytosis PTT (Actin FS) Sodium Potassium Chloride Carbon Dioxide Anion Gap BUN Creatinine Est GFR (CKD-EPI)AfAm Est GFR (CKD-EPI)NonAf POC Glucometer 212 156 116 Random Glucose Serum Osmolality Lactic Acid Calcium Phosphorus Magnesium GGT Serum Folate Blood Type 05/02/19 05/02/19 05/02/19 22:00 22:00 23:24 WBC RBC Hgb Hct MCV MCH MCHC RDW Plt Count MPV Absolute Neuts (auto) Neutrophils % Neutrophils % (Manual) Band Neutrophils % Lymphocytes % Lymphocytes % (Manual) Monocytes % Monocytes % (Manual) Eosinophils % Eosinophils % (Manual) Basophils % Basophils % (Manual) Myelocytes % (Man) Promyelocytes % (Man) Blast Cells % (Manual) Nucleated RBC % Metamyelocytes Hypochromia Platelet Estimate Platelet Comment Polychromasia Poikilocytosis Anisocytosis Microcytosis Macrocytosis PTT (Actin FS) Sodium 135 L Potassium 2.6 L* Chloride 107 Carbon Dioxide 17 L Anion Gap 11 BUN 3.2 L Creatinine 0.2 L Est GFR (CKD-EPI)AfAm 168.33 Est GFR (CKD-EPI)NonAf 145.23 POC Glucometer 157 Random Glucose 125 H Serum Osmolality Lactic Acid 1.0 Calcium 6.2 L* Phosphorus Magnesium GGT Serum Folate Blood Type 05/03/19 05/03/19 05/03/19 00:20 01:32 02:22 WBC RBC Hgb Hct MCV MCH MCHC RDW Plt Count MPV Absolute Neuts (auto) Neutrophils % Neutrophils % (Manual) Band Neutrophils % Lymphocytes % Lymphocytes % (Manual) Monocytes % Monocytes % (Manual) Eosinophils % Eosinophils % (Manual) Basophils % Basophils % (Manual) Myelocytes % (Man) Promyelocytes % (Man) Blast Cells % (Manual) Nucleated RBC % Metamyelocytes Hypochromia Platelet Estimate Platelet Comment Polychromasia Poikilocytosis Anisocytosis Microcytosis Macrocytosis PTT (Actin FS) Sodium 133 L Potassium 3.7 Chloride 104 Carbon Dioxide 21 Anion Gap 7 L BUN 2.2 L* Creatinine 0.2 L Est GFR (CKD-EPI)AfAm 168.33 Est GFR (CKD-EPI)NonAf 145.23 POC Glucometer 164 162 Random Glucose 186 H Serum Osmolality Lactic Acid Calcium 6.3 L* Phosphorus Magnesium GGT Serum Folate Blood Type 05/03/19 05/03/19 05/03/19 05:19 05:54 06:12 WBC 8.1 RBC 3.58 L Hgb 12.6 Hct 36.3 MCV 101.4 H MCH 35.3 H MCHC 34.8 RDW 13.4 Plt Count 140 D MPV 9.6 Absolute Neuts (auto) 7.1 Neutrophils % 87.1 H Neutrophils % (Manual) Band Neutrophils % Lymphocytes % 6.0 L D Lymphocytes % (Manual) Monocytes % 6.6 Monocytes % (Manual) Eosinophils % 0.1 D Eosinophils % (Manual) Basophils % 0.2 Basophils % (Manual) Myelocytes % (Man) Promyelocytes % (Man) Blast Cells % (Manual) Nucleated RBC % 0 Metamyelocytes Hypochromia Platelet Estimate Platelet Comment Polychromasia Poikilocytosis Anisocytosis Microcytosis Macrocytosis PTT (Actin FS) Sodium Potassium Chloride Carbon Dioxide Anion Gap BUN Creatinine Est GFR (CKD-EPI)AfAm Est GFR (CKD-EPI)NonAf POC Glucometer 140 143 Random Glucose Serum Osmolality Lactic Acid Calcium Phosphorus Magnesium GGT Serum Folate Blood Type 05/03/19 07:16 WBC RBC Hgb Hct MCV MCH MCHC RDW Plt Count MPV Absolute Neuts (auto) Neutrophils % Neutrophils % (Manual) Band Neutrophils % Lymphocytes % Lymphocytes % (Manual) Monocytes % Monocytes % (Manual) Eosinophils % Eosinophils % (Manual) Basophils % Basophils % (Manual) Myelocytes % (Man) Promyelocytes % (Man) Blast Cells % (Manual) Nucleated RBC % Metamyelocytes Hypochromia Platelet Estimate Platelet Comment Polychromasia Poikilocytosis Anisocytosis Microcytosis Macrocytosis PTT (Actin FS) Sodium Potassium Chloride Carbon Dioxide Anion Gap BUN Creatinine Est GFR (CKD-EPI)AfAm Est GFR (CKD-EPI)NonAf POC Glucometer 149 Random Glucose Serum Osmolality Lactic Acid Calcium Phosphorus Magnesium GGT Serum Folate Blood Type Active Medications Current Medications Acetaminophen (Ofirmev Injection -) 600 mg IVPB Q6H PRN PRN Reason: FEVER Last Admin: 05/03/19 07:23 Dose: 600 mg Chlorhexidine Gluconate (Hibiclens For Decolonization -) 1 applic TP HS JULISSA Last Admin: 05/02/19 23:17 Dose: 1 applic Enoxaparin Sodium (Lovenox -) 40 mg SQ DAILY JULISSA Last Admin: 05/03/19 09:23 Dose: 40 mg Meropenem 1 gm/ Dextrose 100 mls @ 200 mls/hr IVPB Q8H-IV JULISSA Last Admin: 05/03/19 10:08 Dose: 200 mls/hr Gentamicin Sulfate 200 mg/ (Sodium Chloride) 100 mls @ 100 mls/hr IVPB Q24H JULISSA ; Protocol Last Admin: 05/02/19 23:16 Dose: 100 mls/hr Potassium Phosphate 30 mm/ (Sodium Chloride) 260 mls @ 43.33 mls/hr IVPB ONCE ONE Stop: 05/03/19 16:30 Last Admin: 05/03/19 11:16 Dose: 43.33 mls/hr Sodium Chloride (Normal Saline -) 1,000 mls @ 250 mls/hr IV ASDIR JULISSA Last Admin: 05/03/19 10:45 Dose: 250 mls/hr Insulin Aspart (Novolog Vial Sliding Scale -) 1 vial SQ TIDAC [facility]; Protocol Insulin Detemir (Levemir Vial) 12 units SQ DAILY@0700 [facility] Mupirocin (Bactroban Ointment (For Decolonization) -) 1 applic NS BID [facility] Stop: 05/07/19 09:59 Last Admin: 05/03/19 10:35 Dose: 1 applic Potassium Phos/Sodium Phos (Phos-Nak Packet -) 1 packet PO TID [facility] Last Admin: 05/03/19 14:08 Dose: 1 packet ASSESSMENT/PLAN: 58 year old senegalese-speaking female with a history of non-insulin dependent diabetes mellitus presented to the hospital for acute onset shortness of breath that began earlier today around 4pm after she drank two energy drinks. #Sepsis 2/2 Colitis: appears to be improving, still tachycardic and is intermittently febrile -CT abdomen/pelvis shows diffuse edema and thickening around the colon -continue meropenem -ID consult appreciated -fluids w/ D5 #Diabetic Ketoacidosis: resolved, gap closed, -levemir 12U -sliding scale -BGMs #Hypophosphatemia: 0.5 increased to 0.6 -K phos PO and IV -continue to monitor and check in AM #Elevated alk phos -will f/u, ordered ggt #FEN -diet ordered (diabetic) -IVF w/ NS -replete lytes as necessary #Prophylaxis -lovenox #Disposition -admit ICU Visit type - Emergency Visit Emergency Visit: No - New Patient This patient is new to me today: No - Critical Care Critical Care patient: Yes Total Critical Care Time (in minutes): 36 Critical Care Statement: The care of this patient involved high complexity decision making to prevent further life threatening deterioration of the patient 's condition and/or to evaluate & treat vital organ system(s) failure or risk of failure. ATTENDING PHYSICIAN STATEMENT I saw and evaluated the patient. I reviewed the resident's note and discussed the case with the resident. I agree with the resident's findings and plan as documented. SUBJECTIVE: OBJECTIVE: ASSESSMENT AND PLAN:
[2019-05-03 09:03] LABS: ALBUMIN 1.9 g/dl (3.4-5.0); BILIRUBIN,TOTAL 0.2 mg/dL (0.2-1); CREATININE 0.2 mg/dL (0.55-1.3); MAGNESIUM 1.4 mg/dL (1.8-2.4); POTASSIUM 3.7 mmol/L (3.5-5.1); TOT PROT 4.8 g/dl (6.4-8.2)
[2019-05-03 09:13] LABS: BLOOD UREA NITROGEN 1.1 mg/dL (7-18); CALCIUM 6.4 mg/dL (8.5-10.1)
[2019-05-03 09:14] LABS: PHOSPHOROUS 0.5 mg/dL (2.5-4.9)
[2019-05-03] MEDS: ENOXAPARIN NA (PORCINE) 40 MG/0.4 ML DISP.SYRIN SQ SCH (09:23)
[2019-05-03] MEDS ORDERED: CALCIUM GLUCONATE 10% - 1,000 MG/10 ML VIAL IVPB ONE (09:32)
--- NOTE | 2019-05-03 09:53 | PN ---
Physical Exam: SUBJECTIVE: Patient seen and examined in ICU. Discontinued the insulin gtt and pt tolerating food today. Hypotensive will assess CVP and see if need to give fluids or may need to start pressors. OBJECTIVE: Vital Signs Period Temp Pulse Resp BP Sys/Crow Pulse Ox Last 24 Hr 98.6 F-102.5 F 98-128 18-31 80-118/49-76 98-99 GENERAL: The patient is awake, alert, in minimal distress. NECK: supple. LUNGS: Breath sounds reduced at the bases HEART: tachycardic and regular rhythm, S1, S2 without murmur, rub or gallop. ABDOMEN: Soft, nontender, normoactive bowel sounds, no guarding, no rebound. EXTREMITIES: warm, well-perfused, no edema. SKIN: Warm, dry, no rashes or lesions noted Laboratory Results - last 24 hr 05/02/19 05/02/19 05/02/19 06:38 06:38 11:22 WBC RBC Hgb Hct MCV MCH MCHC RDW Plt Count MPV Absolute Neuts (auto) Neutrophils % Neutrophils % (Manual) 61.0 Band Neutrophils % 20.0 Lymphocytes % Lymphocytes % (Manual) 8.0 Monocytes % Monocytes % (Manual) 5 Eosinophils % Eosinophils % (Manual) 0.0 Basophils % Basophils % (Manual) 0.0 Myelocytes % (Man) 1 Promyelocytes % (Man) 2 D Blast Cells % (Manual) 0 Nucleated RBC % Metamyelocytes 1 D Hypochromia 0 Platelet Estimate Normal Platelet Comment Present Polychromasia 0 Poikilocytosis 0 Anisocytosis 0 Microcytosis 0 Macrocytosis 0 Sodium Potassium Chloride Carbon Dioxide Anion Gap BUN Creatinine Est GFR (CKD-EPI)AfAm Est GFR (CKD-EPI)NonAf POC Glucometer 315 Random Glucose Lactic Acid Calcium Phosphorus Magnesium Total Bilirubin AST ALT Alkaline Phosphatase Total Protein Albumin Hep C Ab Diagnostic 0.2 HIV 1&2 Ag/Ab, 4th Gen Non reactive 05/02/19 05/02/19 05/02/19 12:02 12:36 14:23 WBC RBC Hgb Hct MCV MCH MCHC RDW Plt Count MPV Absolute Neuts (auto) Neutrophils % Neutrophils % (Manual) Band Neutrophils % Lymphocytes % Lymphocytes % (Manual) Monocytes % Monocytes % (Manual) Eosinophils % Eosinophils % (Manual) Basophils % Basophils % (Manual) Myelocytes % (Man) Promyelocytes % (Man) Blast Cells % (Manual) Nucleated RBC % Metamyelocytes Hypochromia Platelet Estimate Platelet Comment Polychromasia Poikilocytosis Anisocytosis Microcytosis Macrocytosis Sodium 129 L Potassium 4.5 Chloride 102 Carbon Dioxide 14 L Anion Gap 13 BUN 6.5 L Creatinine 0.5 L Est GFR (CKD-EPI)AfAm 124.52 Est GFR (CKD-EPI)NonAf 107.44 POC Glucometer 314 290 Random Glucose 327 H Lactic Acid Calcium 7.2 L Phosphorus 2.7 Magnesium Total Bilirubin AST ALT Alkaline Phosphatase Total Protein Albumin Hep C Ab Diagnostic HIV 1&2 Ag/Ab, 4th Gen 05/02/19 05/02/19 05/02/19 15:27 16:30 16:30 WBC RBC Hgb Hct MCV MCH MCHC RDW Plt Count MPV Absolute Neuts (auto) Neutrophils % Neutrophils % (Manual) Band Neutrophils % Lymphocytes % Lymphocytes % (Manual) Monocytes % Monocytes % (Manual) Eosinophils % Eosinophils % (Manual) Basophils % Basophils % (Manual) Myelocytes % (Man) Promyelocytes % (Man) Blast Cells % (Manual) Nucleated RBC % Metamyelocytes Hypochromia Platelet Estimate Platelet Comment Polychromasia Poikilocytosis Anisocytosis Microcytosis Macrocytosis Sodium 133 L Potassium 3.6 Chloride 106 Carbon Dioxide 13 L Anion Gap 13 BUN 5.8 L Creatinine 0.4 L Est GFR (CKD-EPI)AfAm 134.00 Est GFR (CKD-EPI)NonAf 115.62 POC Glucometer 315 Random Glucose 275 H Lactic Acid 0.7 Calcium 6.6 L* Phosphorus Magnesium Total Bilirubin AST ALT Alkaline Phosphatase Total Protein Albumin Hep C Ab Diagnostic HIV 1&2 Ag/Ab, 4th Gen 05/02/19 05/02/19 05/02/19 16:39 17:47 19:07 WBC RBC Hgb Hct MCV MCH MCHC RDW Plt Count MPV Absolute Neuts (auto) Neutrophils % Neutrophils % (Manual) Band Neutrophils % Lymphocytes % Lymphocytes % (Manual) Monocytes % Monocytes % (Manual) Eosinophils % Eosinophils % (Manual) Basophils % Basophils % (Manual) Myelocytes % (Man) Promyelocytes % (Man) Blast Cells % (Manual) Nucleated RBC % Metamyelocytes Hypochromia Platelet Estimate Platelet Comment Polychromasia Poikilocytosis Anisocytosis Microcytosis Macrocytosis Sodium Potassium Chloride Carbon Dioxide Anion Gap BUN Creatinine Est GFR (CKD-EPI)AfAm Est GFR (CKD-EPI)NonAf POC Glucometer 252 256 212 Random Glucose Lactic Acid Calcium Phosphorus Magnesium Total Bilirubin AST ALT Alkaline Phosphatase Total Protein Albumin Hep C Ab Diagnostic HIV 1&2 Ag/Ab, 4th Gen 05/02/19 05/02/19 05/02/19 20:39 21:59 22:00 WBC RBC Hgb Hct MCV MCH MCHC RDW Plt Count MPV Absolute Neuts (auto) Neutrophils % Neutrophils % (Manual) Band Neutrophils % Lymphocytes % Lymphocytes % (Manual) Monocytes % Monocytes % (Manual) Eosinophils % Eosinophils % (Manual) Basophils % Basophils % (Manual) Myelocytes % (Man) Promyelocytes % (Man) Blast Cells % (Manual) Nucleated RBC % Metamyelocytes Hypochromia Platelet Estimate Platelet Comment Polychromasia Poikilocytosis Anisocytosis Microcytosis Macrocytosis Sodium 135 L Potassium 2.6 L* Chloride 107 Carbon Dioxide 17 L Anion Gap 11 BUN 3.2 L Creatinine 0.2 L Est GFR (CKD-EPI)AfAm 168.33 Est GFR (CKD-EPI)NonAf 145.23 POC Glucometer 156 116 Random Glucose 125 H Lactic Acid Calcium 6.2 L* Phosphorus Magnesium Total Bilirubin AST ALT Alkaline Phosphatase Total Protein Albumin Hep C Ab Diagnostic HIV 1&2 Ag/Ab, 4th Gen 05/02/19 05/02/19 05/03/19 22:00 23:24 00:20 WBC RBC Hgb Hct MCV MCH MCHC RDW Plt Count MPV Absolute Neuts (auto) Neutrophils % Neutrophils % (Manual) Band Neutrophils % Lymphocytes % Lymphocytes % (Manual) Monocytes % Monocytes % (Manual) Eosinophils % Eosinophils % (Manual) Basophils % Basophils % (Manual) Myelocytes % (Man) Promyelocytes % (Man) Blast Cells % (Manual) Nucleated RBC % Metamyelocytes Hypochromia Platelet Estimate Platelet Comment Polychromasia Poikilocytosis Anisocytosis Microcytosis Macrocytosis Sodium Potassium Chloride Carbon Dioxide Anion Gap BUN Creatinine Est GFR (CKD-EPI)AfAm Est GFR (CKD-EPI)NonAf POC Glucometer 157 164 Random Glucose Lactic Acid 1.0 Calcium Phosphorus Magnesium Total Bilirubin AST ALT Alkaline Phosphatase Total Protein Albumin Hep C Ab Diagnostic HIV 1&2 Ag/Ab, 4th Gen 05/03/19 05/03/19 05/03/19 01:32 02:22 05:19 WBC RBC Hgb Hct MCV MCH MCHC RDW Plt Count MPV Absolute Neuts (auto) Neutrophils % Neutrophils % (Manual) Band Neutrophils % Lymphocytes % Lymphocytes % (Manual) Monocytes % Monocytes % (Manual) Eosinophils % Eosinophils % (Manual) Basophils % Basophils % (Manual) Myelocytes % (Man) Promyelocytes % (Man) Blast Cells % (Manual) Nucleated RBC % Metamyelocytes Hypochromia Platelet Estimate Platelet Comment Polychromasia Poikilocytosis Anisocytosis Microcytosis Macrocytosis Sodium 133 L Potassium 3.7 Chloride 104 Carbon Dioxide 21 Anion Gap 7 L BUN 2.2 L* Creatinine 0.2 L Est GFR (CKD-EPI)AfAm 168.33 Est GFR (CKD-EPI)NonAf 145.23 POC Glucometer 162 140 Random Glucose 186 H Lactic Acid Calcium 6.3 L* Phosphorus Magnesium Total Bilirubin AST ALT Alkaline Phosphatase Total Protein Albumin Hep C Ab Diagnostic HIV 1&2 Ag/Ab, 4th Gen 05/03/19 05/03/19 05/03/19 05:54 05:54 06:12 WBC 8.1 RBC 3.58 L Hgb 12.6 Hct 36.3 MCV 101.4 H MCH 35.3 H MCHC 34.8 RDW 13.4 Plt Count 140 D MPV 9.6 Absolute Neuts (auto) 7.1 Neutrophils % 87.1 H Neutrophils % (Manual) Band Neutrophils % Lymphocytes % 6.0 L D Lymphocytes % (Manual) Monocytes % 6.6 Monocytes % (Manual) Eosinophils % 0.1 D Eosinophils % (Manual) Basophils % 0.2 Basophils % (Manual) Myelocytes % (Man) Promyelocytes % (Man) Blast Cells % (Manual) Nucleated RBC % 0 Metamyelocytes Hypochromia Platelet Estimate Platelet Comment Polychromasia Poikilocytosis Anisocytosis Microcytosis Macrocytosis Sodium 133 L Potassium 3.7 Chloride 105 Carbon Dioxide 21 Anion Gap 7 L BUN 1.1 L* Creatinine 0.2 L Est GFR (CKD-EPI)AfAm 168.33 Est GFR (CKD-EPI)NonAf 145.23 POC Glucometer 143 Random Glucose 139 H Lactic Acid Calcium 6.4 L* Phosphorus 0.5 L* Magnesium 1.4 L Total Bilirubin 0.2 AST 16 ALT 11 L Alkaline Phosphatase 86 Total Protein 4.8 L Albumin 1.9 L Hep C Ab Diagnostic HIV 1&2 Ag/Ab, 4th Gen 05/03/19 05/03/19 05/03/19 07:16 08:16 09:16 WBC RBC Hgb Hct MCV MCH MCHC RDW Plt Count MPV Absolute Neuts (auto) Neutrophils % Neutrophils % (Manual) Band Neutrophils % Lymphocytes % Lymphocytes % (Manual) Monocytes % Monocytes % (Manual) Eosinophils % Eosinophils % (Manual) Basophils % Basophils % (Manual) Myelocytes % (Man) Promyelocytes % (Man) Blast Cells % (Manual) Nucleated RBC % Metamyelocytes Hypochromia Platelet Estimate Platelet Comment Polychromasia Poikilocytosis Anisocytosis Microcytosis Macrocytosis Sodium Potassium Chloride Carbon Dioxide Anion Gap BUN Creatinine Est GFR (CKD-EPI)AfAm Est GFR (CKD-EPI)NonAf POC Glucometer 149 154 185 Random Glucose Lactic Acid Calcium Phosphorus Magnesium Total Bilirubin AST ALT Alkaline Phosphatase Total Protein Albumin Hep C Ab Diagnostic HIV 1&2 Ag/Ab, 4th Gen Active Medications Generic Name Dose Route Start Last Admin Trade Name Freq PRN Reason Stop Dose Admin Acetaminophen 600 mg 05/02/19 16:08 05/03/19 07:23 Ofirmev Injection - IVPB 600 mg Q6H PRN Administration FEVER Calcium Gluconate 1,000 mg 05/03/19 09:32 Calcium Gluconate 10% - IVPB 05/03/19 09:33 ONCE ONE Chlorhexidine Gluconate 1 applic 05/02/19 22:00 05/02/19 23:17 Hibiclens For Decolonization - TP 1 applic HS JULISSA Administration Enoxaparin Sodium 40 mg 05/02/19 10:00 05/03/19 09:23 Lovenox - SQ 40 mg DAILY JULISSA Administration Meropenem 1 gm/ Dextrose 100 mls @ 200 mls/hr 05/01/19 23:45 05/03/19 09:23 IVPB 200 mls/hr Q8H-IV JULISSA Administration Gentamicin Sulfate 200 mg/ 100 mls @ 100 mls/hr 05/02/19 20:30 05/02/19 23:16 Sodium Chloride IVPB 100 mls/hr Q24H JULISSA Administration Protocol Sodium Chloride 1,000 mls @ 250 mls/hr 05/02/19 19:30 05/02/19 22:50 Normal Saline - IV 250 mls/hr ASDIR JULISSA Administration Potassium Chloride/Dextrose/Sod Cl 20 meq in 1,000 mls @ 100 mls/hr 05/02/19 19:45 05/02/19 22:51 D5-1/2ns+20 Meq Kcl - IV 100 mls/hr ASDIR JULISSA Administration Potassium Phosphate 30 mm/ 260 mls @ 62.5 mls/hr 05/03/19 09:27 Sodium Chloride IVPB 05/03/19 13:36 ONCE ONE Magnesium Oxide 400 mg 05/03/19 09:48 Mag-Ox - PO 05/03/19 09:49 ONCE ONE Mupirocin 1 applic 05/02/19 10:00 05/02/19 23:17 Bactroban Ointment (For Decolonization) - NS 05/07/19 09:59 1 applic BID JULISSA Administration Potassium Phos/Sodium Phos 1 packet 05/03/19 14:00 Phos-Nak Packet - PO TID JULISSA ASSESSMENT/PLAN: 58 y/o F with a significant PMH of NIDDM who presented to [facility] due to shortness of breath, chest pain, and palpitations after drinking 2 energy drinks and found to be in DKA. Neuro: awake, alert, oriented x 3 Endo: DKA - BG in 150's. -s/p > 6 L IVF -Insulin gtt discontinued, started on levemir 7 HS, insulin sliding scale -NS boluses to help increase map >65, cvp of 2 will continue to bolus with NS and prepared to start pressors if needed. ID:UTI -awaiting cultures -+UA - s/p vanco fluconazole - will continue Meropenem/gentamicin for now with close monitoring of renal function - de-escalate once culture results available F/E/N -D5 1/2 NS w/ 40 mEQ -Monitor Electrolytes, anorexic lady ice skating teacher consulted. -hypomagnesemia, repleted -hypophosphatemia, repleted with 30 KPhos -Diabetic Diet DVT ppx: HEPQTID Dispo: We will continue to follow the patient. Thank you for this consultative opportunity. Visit type - Emergency Visit Emergency Visit: Yes ED Registration Date: 05/01/19 Care time: The patient presented to the Emergency Department on the above date and was hospitalized for further evaluation of their emergent condition. - New Patient This patient is new to me today: Yes Date on this admission: 05/03/19 - Critical Care Critical Care patient: Yes Total Critical Care Time (in minutes): 35 Critical Care Statement: The care of this patient involved high complexity decision making to prevent further life threatening deterioration of the patient 's condition and/or to evaluate & treat vital organ system(s) failure or risk of failure. - Discharge Referral Referred to [facility] No ATTENDING PHYSICIAN STATEMENT I saw and evaluated the patient. I reviewed the resident's note and discussed the case with the resident. I agree with the resident's findings and plan as documented. SUBJECTIVE: OBJECTIVE: ASSESSMENT AND PLAN:
[2019-05-03] MEDS ORDERED: CALCIUM GLUCONATE 10% - 1,000 MG/10 ML VIAL ONE (10:00)
[2019-05-03] MEDS ORDERED: CALCIUM (OYSTER SHELL) 500 MG TABLET (FP) PO SCH (10:00)
[2019-05-03] MEDS ORDERED: INSULIN (LEVEMIR) 100 UNITS/ML UNITS SQ SCH ×2 (10:00→10:15)
[2019-05-03] MEDS ORDERED: INSULIN (LEVEMIR) 100 UNITS/ML UNITS SQ ONE ×2 (10:01→13:58)
[2019-05-03] MEDS ORDERED: MAGNESIUM OXIDE 400 MG TABLET (FP) PO ONE ×3 (10:15→17:15)
[2019-05-03] MEDS ORDERED: SODIUM CHLORIDE 1,000 ML IV SCH (10:15)
[2019-05-03] MEDS ORDERED: SODIUM CHLORIDE 250 ML IV STA (10:28)
--- NOTE | 2019-05-03 10:28 | PN ---
Teaching Attending Note Name of Resident: Asad Hernandez ATTENDING PHYSICIAN STATEMENT I saw and evaluated the patient. I reviewed the resident's note and discussed the case with the resident. I agree with the resident's findings and plan as documented. SUBJECTIVE: Patient seen and examined in the ICU. More awake and alert today. Still with some non-specific abdominal tenderness. Denies CP or SOB. Hemodynamics have been borderline despite adequate volume resuscitation. Intake & Output 04/30/19 05/01/19 05/02/19 05/03/19 23:59 23:59 23:59 23:59 Intake Total 5653 8942 Output Total 1999 3500 Balance 3653 5442 Weight 84 lb 91 lb 95 lb 1.6 oz Last Vital Signs Temp Pulse Resp BP Pulse Ox 98.6 F 116 H 24 H 80/52 L 98 05/03/19 10:00 05/03/19 10:00 05/03/19 10:00 05/03/19 10:00 05/03/19 09:00 Active Medications Acetaminophen (Ofirmev Injection -) 600 mg IVPB Q6H PRN PRN Reason: FEVER Last Admin: 05/03/19 07:23 Dose: 600 mg Chlorhexidine Gluconate (Hibiclens For Decolonization -) 1 applic TP HS JULISSA Last Admin: 05/02/19 23:17 Dose: 1 applic Enoxaparin Sodium (Lovenox -) 40 mg SQ DAILY JULISSA Last Admin: 05/03/19 09:23 Dose: 40 mg Meropenem 1 gm/ Dextrose 100 mls @ 200 mls/hr IVPB Q8H-IV JULISSA Last Admin: 05/03/19 09:23 Dose: 200 mls/hr Gentamicin Sulfate 200 mg/ (Sodium Chloride) 100 mls @ 100 mls/hr IVPB Q24H JULISSA ; Protocol Last Admin: 05/02/19 23:16 Dose: 100 mls/hr Potassium Phosphate 30 mm/ (Sodium Chloride) 260 mls @ 43.33 mls/hr IVPB ONCE ONE Stop: 05/03/19 16:30 Sodium Chloride (Normal Saline -) 1,000 mls @ 150 mls/hr IV ASDIR JULISSA Insulin Detemir (Levemir Vial) 12 units SQ HS JULISSA Mupirocin (Bactroban Ointment (For Decolonization) -) 1 applic NS BID JULISSA Stop: 05/07/19 09:59 Last Admin: 05/02/19 23:17 Dose: 1 applic Potassium Phos/Sodium Phos (Phos-Nak Packet -) 1 packet PO TID JULISSA GENERAL: Awake and alert, weak appearing HEAD: Normal with no signs of trauma. EYES: EOMI Sclera Clear EARS, NOSE, THROAT: Dry mucous membranes LUNGS: Clear HEART: S1S2 ABDOMEN: Soft NDNT No HSM LOWER EXTREMITIES: No CCE NEUROLOGICAL: non-focal PSYCHIATRIC: Cooperative. Good eye contact. Appropriate mood and affect. SKIN: Warm, dry, normal turgor, no rashes or lesions noted. ASSESSMENT/PLAN: Septic Shock due to a source DKA UTI Lethargy likely due to DKA Start NE for hemodynamic support Tranduce CVP to guide IVF resuscitation Glycemic control O2 as needed VTE prophylaxis PO as tolerated ABX coverage per ID Requires ICU monitoring for pressors Dr Uriarte Critical care time spent in reviewing chart, evaluating patient and formulating plan - 36 minutes.
[2019-05-03] MEDS ORDERED: POTASSIUM PHOSPHATE 30 MM in SODIUM CHLORIDE 250 ML IVPB ONE (10:30)
[2019-05-03] MEDS: MUPIROCIN 2% TOPICAL OINTMENT FOR DECOLONIZATION NS SCH ×2 (10:35→22:45)
--- NOTE | 2019-05-03 10:38 | PN ---
Progress Note, Physician History of Present Illness: Pt yesterday noted to be febrile to 102.5F and hypotensive. Started on broader spectrum antibiotics. Today noted with fever of 102F, currently afebrile. She appears more alert and less weak. States she feels better. No diarrhea or abd pain. - Current Medication List Current Medications: Active Medications Acetaminophen (Ofirmev Injection -) 600 mg IVPB Q6H PRN PRN Reason: FEVER Last Admin: 05/03/19 07:23 Dose: 600 mg Chlorhexidine Gluconate (Hibiclens For Decolonization -) 1 applic TP HS JULISSA Last Admin: 05/02/19 23:17 Dose: 1 applic Enoxaparin Sodium (Lovenox -) 40 mg SQ DAILY JULISSA Last Admin: 05/03/19 09:23 Dose: 40 mg Meropenem 1 gm/ Dextrose 100 mls @ 200 mls/hr IVPB Q8H-IV JULISSA Last Admin: 05/03/19 09:23 Dose: 200 mls/hr Gentamicin Sulfate 200 mg/ (Sodium Chloride) 100 mls @ 100 mls/hr IVPB Q24H JULISSA ; Protocol Last Admin: 05/02/19 23:16 Dose: 100 mls/hr Potassium Phosphate 30 mm/ (Sodium Chloride) 260 mls @ 43.33 mls/hr IVPB ONCE ONE Stop: 05/03/19 16:30 Sodium Chloride (Normal Saline -) 1,000 mls @ 150 mls/hr IV ASDIR JULISSA Sodium Chloride (Normal Saline -) 250 mls @ 250 mls/hr IV ASDIR STA Stop: 05/03/19 11:27 Insulin Detemir (Levemir Vial) 12 units SQ HS JULISSA Mupirocin (Bactroban Ointment (For Decolonization) -) 1 applic NS BID JULISSA Stop: 05/07/19 09:59 Last Admin: 05/02/19 23:17 Dose: 1 applic Potassium Phos/Sodium Phos (Phos-Nak Packet -) 1 packet PO TID [facility] - Objective Vital Signs: Vital Signs Temperature 98.6 F 05/03/19 10:00 Pulse Rate 116 H 05/03/19 10:00 Respiratory Rate 24 H 05/03/19 10:00 Blood Pressure 80/52 L 05/03/19 10:00 O2 Sat by Pulse Oximetry (%) 98 05/03/19 09:00 Constitutional: Yes: No Distress, Calm Eyes: Yes: Conjunctiva Clear HENT: Yes: Atraumatic Cardiovascular: Yes: Regular Rate and Rhythm Respiratory: Yes: CTA Bilaterally Gastrointestinal: Yes: Normal Bowel Sounds, Soft Genitourinary: Yes: Jeter Present Extremities: Yes: WNL Integumentary: Yes: WNL Neurological: Yes: Alert Labs: CBC, BMP 05/03/19 05:54 05/03/19 05:54 INR, PTT INR 1.08 (0.83-1.09) 05/02/19 06:38 Microbiology 05/01/19 21:30 Blood - Peripheral Venous Blood Culture - Preliminary Lactose Fermenting Neg Bacilli 05/01/19 22:00 Blood - Peripheral Venous Blood Culture - Preliminary Lactose Fermenting Neg Bacilli 05/01/19 22:00 Urine - Urine Clean Catch Urine Culture - Preliminary Lactose Fermenting Neg Bacilli - ....Imaging Chest X-ray: Report Reviewed Cat Scan: Report Reviewed Assessment/Plan 58 y.o. female with PMH of DM presented with c/o weakness, SOB, nausea, and dysuria Severe Sepsis Gram Negative Bacteremia UTI DKA Colitis -- hypotensive/febrile yesterday -- febrile earlier this am, currently afebrile -- CT scan results noted: b/l atelectasis, ascending/transverse colitis -- send for stool testing if diarrhea noted, none reported currently -- continue Meropenem/gentamicin for now with close monitoring of renal function -- de-escalate once culture results available -- s/p doses of Vancomycin/Fluconazole yesterday -- f/u blood and urine culture results, serologies -- management of DKA per CCU -- monitor vitals, Pt is currently tachycardic and weak Chart reviewed, labs/imaging results noted Will follow Thank you cc time: 40 min
--- NOTE | 2019-05-03 10:42 | PN ---
Teaching Attending Note Name of Resident: Derek Barry ATTENDING PHYSICIAN STATEMENT I saw and evaluated the patient. I reviewed the resident's note and discussed the case with the resident. I agree with the resident's findings and plan as documented. SUBJECTIVE: Patient is feeling better with no acute distress. Blood pressure in a low side will give IVF. No fever or chills. Hong Konger speaking lady translation was done by the nurse at bedside. patient is improving. OBJECTIVE: Vital Signs Temperature 98.6 F 05/03/19 10:00 Pulse Rate 116 H 05/03/19 10:00 Respiratory Rate 24 H 05/03/19 10:00 Blood Pressure 80/52 L 05/03/19 10:00 O2 Sat by Pulse Oximetry (%) 98 05/03/19 09:00 GENERAL: The patient is awake, alert, and fully oriented, in no acute distress. HEAD: Normal with no signs of trauma. EYES: PERRL, extraocular movements intact, sclera anicteric, conjunctiva clear. ENT: Ears normal, oropharynx clear without exudates, moist mucous membranes. NECK: Trachea midline, full range of motion, supple. LUNGS: Breath sounds equal, clear to auscultation bilaterally, no wheezes, no crackles, no accessory muscle use. HEART: tachycardic , S1, S2 positive , no murmur appreciated, rub or gallop. ABDOMEN: Soft, NT,ND, normoactive bowel sounds, no guarding, no rebound, no hepatosplenomegaly, no masses. EXTREMITIES: 2+ pulses, warm, well-perfused, no edema. NEUROLOGICAL: Cranial nerves II through XII grossly intact. Normal speech, gait not observed. PSYCH: Normal mood, normal affect. SKIN: Warm, dry, normal turgor, no rashes or lesions noted CBCD WBC 8.1 K/mm3 (4.0-10.0) 05/03/19 05:54 RBC 3.58 M/mm3 (3.60-5.2) L 05/03/19 05:54 Hgb 12.6 GM/dL (10.7-15.3) 05/03/19 05:54 Hct 36.3 % (32.4-45.2) 05/03/19 05:54 MCV 101.4 fl (80-96) H 05/03/19 05:54 MCHC 34.8 g/dl (32.0-36.0) 05/03/19 05:54 RDW 13.4 % (11.6-15.6) 05/03/19 05:54 Plt Count 140 K/MM3 (134-434) D 05/03/19 05:54 MPV 9.6 fl (7.5-11.1) 05/03/19 05:54 CMP Sodium 133 mmol/L (136-145) L 05/03/19 05:54 Potassium 3.7 mmol/L (3.5-5.1) 05/03/19 05:54 Chloride 105 mmol/L (98-107) 05/03/19 05:54 Carbon Dioxide 21 mmol/L (21-32) 05/03/19 05:54 Anion Gap 7 MMOL/L (8-16) L 05/03/19 05:54 BUN 1.1 mg/dL (7-18) L* 05/03/19 05:54 Creatinine 0.2 mg/dL (0.55-1.3) L 05/03/19 05:54 Random Glucose 139 mg/dL (74-106) H 05/03/19 05:54 Calcium 6.4 mg/dL (8.5-10.1) L* 05/03/19 05:54 Total Bilirubin 0.2 mg/dL (0.2-1) 05/03/19 05:54 AST 16 U/L (15-37) 05/03/19 05:54 ALT 11 U/L (13-61) L 05/03/19 05:54 Alkaline Phosphatase 86 U/L (45-117) 05/03/19 05:54 Total Protein 4.8 g/dl (6.4-8.2) L 05/03/19 05:54 Albumin 1.9 g/dl (3.4-5.0) L 05/03/19 05:54 CARDIAC ENZYMES Creatine Kinase 22 U/L (26-192) L 05/01/19 20:40 Troponin I < 0.02 ng/ml (0.00-0.05) 05/01/19 20:40 Current Medications Generic Name Dose Route Start Last Admin Trade Name Freq PRN Reason Stop Dose Admin Acetaminophen 600 mg 05/02/19 16:08 05/03/19 07:23 Ofirmev Injection - IVPB 600 mg Q6H PRN Administration FEVER Chlorhexidine Gluconate 1 applic 05/02/19 22:00 05/02/19 23:17 Hibiclens For Decolonization - TP 1 applic HS JULISSA Administration Enoxaparin Sodium 40 mg 05/02/19 10:00 05/03/19 09:23 Lovenox - SQ 40 mg DAILY JULISSA Administration Meropenem 1 gm/ Dextrose 100 mls @ 200 mls/hr 05/01/19 23:45 05/03/19 10:08 IVPB 200 mls/hr Q8H-IV JULISSA Administration Gentamicin Sulfate 200 mg/ 100 mls @ 100 mls/hr 05/02/19 20:30 05/02/19 23:16 Sodium Chloride IVPB 100 mls/hr Q24H JULISSA Administration Protocol Potassium Phosphate 30 mm/ 260 mls @ 43.33 mls/hr 05/03/19 10:30 Sodium Chloride IVPB 05/03/19 16:30 ONCE ONE 30 MM/6 HR Sodium Chloride 1,000 mls @ 150 mls/hr 05/03/19 10:15 Normal Saline - IV ASDIR JULISSA Sodium Chloride 250 mls @ 250 mls/hr 05/03/19 10:28 05/03/19 10:35 Normal Saline - IV 05/03/19 11:27 250 mls/hr ASDIR STA Administration Insulin Detemir 12 units 05/03/19 10:15 05/03/19 10:36 Levemir Vial SQ Not Given HS COUNT INCLUDES THE [facility] Mupirocin 1 applic 05/02/19 10:00 05/03/19 10:35 Bactroban Ointment (For Decolonization) - NS 05/07/19 09:59 1 applic BID JULISSA Administration Potassium Phos/Sodium Phos 1 packet 05/03/19 14:00 Phos-Nak Packet - PO TID COUNT INCLUDES THE [facility] Home Medications Medication Instructions Recorded Metformin HCl [Metformin HCl ER] 500 mg PO BID 05/01/19 Microbiology 05/01/19 21:30 Blood - Peripheral Venous Blood Culture - Preliminary Lactose Fermenting Neg Bacilli 05/01/19 22:00 Blood - Peripheral Venous Blood Culture - Preliminary Lactose Fermenting Neg Bacilli 05/01/19 22:00 Urine - Urine Clean Catch Urine Culture - Preliminary Lactose Fermenting Neg Bacilli Assessment and plan: Patient is 58yo latvian-speaking female with PMHx history of non-insulin dependent diabetes mellitus presented to the hospital for acute shortness of breath that began earlier today around 4pm after she drank two energy drinks. #Gram negative Bacteremia: On meropenem added Gentamicin as per ID since was found to be septic, waiting for blood cx and sensitivity is pending. #Diabetic Ketoacidosis: on the case , off insulin drip, gap is closed now, on Levemir. #Electrolyte imbalance /Pseudohyponatremia/Hypomagnesemia: replete and adjust accordingly # severe hypophos : repleted level 0.6 will continue to replete. DVT Px: lovenox continue ICU monitoring
[2019-05-03] MEDS: SODIUM CHLORIDE 1,000 ML IV SCH (10:45)
[2019-05-03] MEDS ORDERED: MAGNESIUM SULF 50% (8.12 MEQ/2 ML-1 GM VIAL) IVPB ONE ×2 (10:48→23:20)
--- NOTE | 2019-05-03 13:41 | PN ---
Progress Note (short form) - Note Progress Note: Feels better Afebrile today Vital Signs Period Temp Pulse Resp BP Sys/Crow Pulse Ox Last 24 Hr 98.6 F-102.5 F 98-128 18-31 80-118/49-76 98-99 PE: AOx3 Neck: Supple, No JVD HEENT: PERRL, EOMI Lungs: CTA CVs: s1S2 Abd: Benign Ext: No edema Neuro: No focal deficit CMP Sodium 133 mmol/L (136-145) L 05/03/19 05:54 Potassium 3.7 mmol/L (3.5-5.1) 05/03/19 05:54 Chloride 105 mmol/L (98-107) 05/03/19 05:54 Carbon Dioxide 21 mmol/L (21-32) 05/03/19 05:54 Anion Gap 7 MMOL/L (8-16) L 05/03/19 05:54 BUN 1.1 mg/dL (7-18) L* 05/03/19 05:54 Creatinine 0.2 mg/dL (0.55-1.3) L 05/03/19 05:54 Est GFR (CKD-EPI)AfAm 168.33 05/03/19 05:54 Est GFR (CKD-EPI)NonAf 145.23 05/03/19 05:54 POC Glucometer 213 UNITS (80-120) 05/03/19 10:55 Random Glucose 139 mg/dL (74-106) H 05/03/19 05:54 Hemoglobin A1c % 14.0 % (4.2-6.3) H 05/02/19 06:38 Serum Osmolality 268 mosm/kg (278-305) L 05/03/19 05:54 Lactic Acid 1.0 mmol/L (0.4-2.0) 05/02/19 22:00 Calcium 6.4 mg/dL (8.5-10.1) L* 05/03/19 05:54 Phosphorus 0.5 mg/dL (2.5-4.9) L* 05/03/19 05:54 Magnesium 1.4 mg/dL (1.8-2.4) L 05/03/19 05:54 Total Bilirubin 0.2 mg/dL (0.2-1) 05/03/19 05:54 GGT 16 U/L (5-85) 05/02/19 06:38 AST 16 U/L (15-37) 05/03/19 05:54 ALT 11 U/L (13-61) L 05/03/19 05:54 Alkaline Phosphatase 86 U/L (45-117) 05/03/19 05:54 Creatine Kinase 22 U/L (26-192) L 05/01/19 20:40 Troponin I < 0.02 ng/ml (0.00-0.05) 05/01/19 20:40 B-Natriuretic Peptide 465.6 pg/ml (5-125) H 05/01/19 20:40 Total Protein 4.8 g/dl (6.4-8.2) L 05/03/19 05:54 Albumin 1.9 g/dl (3.4-5.0) L 05/03/19 05:54 Serum Folate 17 ng/mL (3.1-17.5) 05/02/19 06:38 Beta-Hydroxybutyrate > 46.0 mg/dL (0.2-2.8) H 05/01/19 20:40 Current Medications Generic Name Dose Route Start Last Admin Trade Name Freq PRN Reason Stop Dose Admin Acetaminophen 600 mg 05/02/19 16:08 05/03/19 07:23 Ofirmev Injection - IVPB 600 mg Q6H PRN Administration FEVER Chlorhexidine Gluconate 1 applic 05/02/19 22:00 05/02/19 23:17 Hibiclens For Decolonization - TP 1 applic HS JULISSA Administration Enoxaparin Sodium 40 mg 05/02/19 10:00 05/03/19 09:23 Lovenox - SQ 40 mg DAILY JULISSA Administration Meropenem 1 gm/ Dextrose 100 mls @ 200 mls/hr 05/01/19 23:45 05/03/19 10:08 IVPB 200 mls/hr Q8H-IV JULISSA Administration Gentamicin Sulfate 200 mg/ 100 mls @ 100 mls/hr 05/02/19 20:30 05/02/19 23:16 Sodium Chloride IVPB 100 mls/hr Q24H JULISSA Administration Protocol Potassium Phosphate 30 mm/ 260 mls @ 43.33 mls/hr 05/03/19 10:30 05/03/19 11: 16 Sodium Chloride IVPB 05/03/19 16:30 43.33 mls/hr ONCE ONE Administration 30 MM/6 HR Sodium Chloride 1,000 mls @ 250 mls/hr 05/03/19 10:45 05/03/19 10:45 Normal Saline - IV 250 mls/hr ASDIR JULISSA Administration Sodium Chloride 1,000 mls @ 250 mls/hr 05/03/19 10:50 05/03/19 11:30 Normal Saline - IV 05/03/19 14:49 250 mls/hr ASDIR STA Administration Insulin Aspart 1 vial 05/03/19 16:30 Novolog Vial Sliding Scale - SQ TIDAC [facility] Protocol Insulin Detemir 12 units 05/03/19 10:15 05/03/19 10:36 Levemir Vial SQ Not Given [facility] Mupirocin 1 applic 05/02/19 10:00 05/03/19 10:35 Bactroban Ointment (For Decolonization) - NS 05/07/19 09:59 1 applic BID JULISSA Administration Potassium Phos/Sodium Phos 1 packet 05/03/19 14:00 Phos-Nak Packet - PO TID JULISSA AP: DKA T2DM Sepsis/UTI Acidosis resolved Off Insulin drip Agree with Levemir 12 units daily with Novolog coverage Got Levemer 7 in the morning. Add Levemir 5 now and start 12 units daily in Morning starting tomorrow. Adjust Insulin dose as necessary. CMP with mag and Phos at 5 PM Electrolyte replacement as necessary O2 as needed Continue Meropenem/Genta Continue ICU monitoring Discussed with housestaff.
[2019-05-03] MEDS: NAPH,MB-DB/K PH,MBDB POWDER PACKET PO SCH ×2 (14:08→21:06)
[2019-05-03] MEDS ORDERED: INSULIN SLIDING SCALE (NOVOLOG) 1 VIAL SQ SCH ×2 (16:30)
[2019-05-03 17:07] LABS: MAGNESIUM 1.6 mg/dL (1.8-2.4); PHOSPHOROUS 1.6 mg/dL (2.5-4.9)
[2019-05-03] MEDS ORDERED: NAPH,MB-DB/K PH,MBDB POWDER PACKET PO ONE (17:15)
[2019-05-03] MEDS: SODIUM CHLORIDE IVPB SCH (21:06)
[2019-05-03] MEDS: GENTAMICIN IVPB SCH (21:06)
[2019-05-03] MEDS: CHLORHEXIDINE GLUCONATE 4% CLEANSER FOR DECOLONIZATION TP SCH (21:27)
[2019-05-03 21:46] LABS: EPI CELLS 1.6 /HPF (0-5/HPF); HYALINE CASTS 11 /lpf (0-8); URINE APPEARANCE CLEAR; URINE BACTERIA 0.8 /hpf (NEGATIVE); URINE BILIRUBIN NEGATIVE (NEGATIVE); URINE COLOR YELLOW; URINE GLUCOSE (UA) 3+ (NEGATIVE); URINE KETONE TRACE (NEGATIVE); URINE LEUK ESTERASE NEGATIVE (NEGATIVE); URINE NITRITE NEGATIVE (NEGATIVE); URINE PROTEIN NEGATIVE (NEGATIVE); URINE RBC 4 /hpf (0-4); URINE WBC 8 /hpf (0-5)
[2019-05-03 22:15] LABS: MAGNESIUM 1.9 mg/dL (1.8-2.4)
[2019-05-03] MEDS ORDERED: Insulin (LOG) Aspart 100 UNITS/ML VIAL SQ ONE (22:52)
[2019-05-03] MEDS: NAPH,MB-DB/K PH,MBDB POWDER PACKET PO ONE ×2 (23:03→23:13)
[2019-05-03] MEDS: MAGNESIUM OXIDE 400 MG TABLET (FP) PO ONE ×2 (23:03→23:12)
[2019-05-03] MEDS ORDERED: POTASSIUM PHOSPHATE 15 MM in DEXTROSE 5%-WATER - 250 ML IVPB ONE (23:20)
[2019-05-04] MEDS ORDERED: MEROPENEM 1 GM VIAL (RESTRICTED TO ID) IVPB ONE ×3 (01:11→17:21)
[2019-05-04] MEDS ORDERED: DEXTROSE 5%-WATER 100 ML IVPB ONE ×3 (01:11→17:22)
[2019-05-04] MEDS: MEROPENEM 1 GM in DEXTROSE 5%-WATER 100 ML IVPB SCH ×3 (01:15→18:01)
[2019-05-04] MEDS: INSULIN (LEVEMIR) 100 UNITS/ML UNITS SQ SCH (06:21)
[2019-05-04] MEDS: NAPH,MB-DB/K PH,MBDB POWDER PACKET PO SCH ×3 (06:21→22:04)
[2019-05-04] MEDS: INSULIN SLIDING SCALE (NOVOLOG) 1 VIAL SQ SCH ×3 (06:21→17:00)
[2019-05-04] MEDS: SODIUM CHLORIDE 1,000 ML IV SCH ×3 (06:40→16:03)
[2019-05-04] MEDS ORDERED: INSULIN SLIDING SCALE (NOVOLOG) 1 VIAL SQ SCH (07:00)
[2019-05-04 07:25] LABS: PHOSPHOROUS 1.6 mg/dL (2.5-4.9)
[2019-05-04] MEDS ORDERED: POTASSIUM PHOSPHATE 30 MM in SODIUM CHLORIDE 500 ML IVPB ONE (08:33)
[2019-05-04 09:33] LABS: ALBUMIN 1.8 g/dl (3.4-5.0); ALK PHOS 93 U/L (45-117); ANION GAP 9 MMOL/L (8-16); BILIRUBIN,TOTAL 0.2 mg/dL (0.2-1); CHLORIDE 103 mmol/L (98-107); CO2 26 mmol/L (21-32); GLUCOSE,RANDOM 92 mg/dL (74-106); SGOT/AST 51 U/L (15-37); SGPT/ALT 33 U/L (13-61); SODIUM 138 mmol/L (136-145); TOT PROT 4.6 g/dl (6.4-8.2)
[2019-05-04 10:15] LABS: BLOOD UREA NITROGEN 1.7 mg/dL (7-18); CALCIUM 6.6 mg/dL (8.5-10.1); CREATININE < 0.2 mg/dL (0.55-1.3); POTASSIUM 2.9 mmol/L (3.5-5.1)
[2019-05-04] MEDS: ENOXAPARIN NA (PORCINE) 40 MG/0.4 ML DISP.SYRIN SQ SCH (10:20)
[2019-05-04] MEDS: MUPIROCIN 2% TOPICAL OINTMENT FOR DECOLONIZATION NS SCH ×2 (10:20→22:11)
--- NOTE | 2019-05-04 11:21 | PN ---
Physical Exam: SUBJECTIVE: Patient seen and examined. Pt. denies any acute complaints at this time, including nausea, dizziness, chest pain, shortness of breath, fevers or chills. OBJECTIVE: Vital Signs Period Temp Pulse Resp BP Sys/Crow Pulse Ox Last 24 Hr 98.8 F-101.1 F 90-116 17-27 89-110/57-72 98-98 GENERAL: The patient is awake, alert, and fully oriented, in no acute distress. HEAD: Normal with no signs of trauma. EYES: extraocular movements intact, sclera anicteric, conjunctiva clear. No ptosis. ENT: Ears normal, nares patent, oropharynx clear without exudates, moist mucous membranes. NECK: Trachea midline, full range of motion, supple. LUNGS: Breath sounds equal, clear to auscultation bilaterally, no wheezes, diffuse crackles most prominent at bilateral bases, no accessory muscle use. HEART: Regular rate and rhythm, S1, S2 without murmur, rub or gallop. ABDOMEN: Soft, nontender, nondistended, normoactive bowel sounds, no guarding, no rebound, no hepatosplenomegaly, no masses. EXTREMITIES: 2+ pulses, warm, well-perfused, no edema. NEUROLOGICAL: Cranial nerves II through XII grossly intact. Normal speech, gait not observed. PSYCH: Normal mood, normal affect. SKIN: Warm, dry, normal turgor Laboratory Results - last 24 hr 05/03/19 05/03/19 05/03/19 05:54 06:30 14:50 Sodium Potassium Chloride Carbon Dioxide Anion Gap BUN Creatinine Est GFR (CKD-EPI)AfAm Est GFR (CKD-EPI)NonAf POC Glucometer Random Glucose Serum Osmolality 268 L Calcium Phosphorus Magnesium Total Bilirubin AST ALT Alkaline Phosphatase Total Protein Albumin Vitamin B12 Serum Folate Urine Color Yellow Urine Appearance Clear Urine pH 6.0 Ur Specific [place] 1.018 Urine Protein Negative Urine Glucose (UA) 3+ H Urine Ketones Trace H Urine Blood Trace Urine Nitrite Negative Urine Bilirubin Negative Urine Urobilinogen 1.0 Ur Leukocyte Esterase Negative Urine WBC (Auto) 8 Urine RBC (Auto) 4 Urine Casts (Auto) 11 U Epithel Cells (Auto) 1.6 Urine Bacteria (Auto) 0.8 Urine Osmolality 333 05/03/19 05/03/19 05/03/19 15:30 16:10 20:30 Sodium Potassium Chloride Carbon Dioxide Anion Gap BUN Creatinine Est GFR (CKD-EPI)AfAm Est GFR (CKD-EPI)NonAf POC Glucometer 261 Random Glucose Serum Osmolality Calcium Phosphorus 1.6 L 1.0 L* Magnesium 1.6 L 1.9 Total Bilirubin AST ALT Alkaline Phosphatase Total Protein Albumin Vitamin B12 Serum Folate 11 Urine Color Urine Appearance Urine pH Ur Specific [place] Urine Protein Urine Glucose (UA) Urine Ketones Urine Blood Urine Nitrite Urine Bilirubin Urine Urobilinogen Ur Leukocyte Esterase Urine WBC (Auto) Urine RBC (Auto) Urine Casts (Auto) U Epithel Cells (Auto) Urine Bacteria (Auto) Urine Osmolality 05/03/19 05/04/19 05/04/19 22:19 05:30 05:50 Sodium 138 Potassium 2.9 L* Chloride 103 Carbon Dioxide 26 Anion Gap 9 BUN 1.7 L* Creatinine < 0.2 L Est GFR (CKD-EPI)AfAm 168.33 Est GFR (CKD-EPI)NonAf 145.24 POC Glucometer 203 93 Random Glucose 92 Serum Osmolality Calcium 6.6 L* Phosphorus 1.6 L Magnesium 2.0 Total Bilirubin 0.2 AST 51 H ALT 33 Alkaline Phosphatase 93 Total Protein 4.6 L Albumin 1.8 L Vitamin B12 > 6000 H Serum Folate Urine Color Urine Appearance Urine pH Ur Specific [place] Urine Protein Urine Glucose (UA) Urine Ketones Urine Blood Urine Nitrite Urine Bilirubin Urine Urobilinogen Ur Leukocyte Esterase Urine WBC (Auto) Urine RBC (Auto) Urine Casts (Auto) U Epithel Cells (Auto) Urine Bacteria (Auto) Urine Osmolality 05/04/19 10:40 Sodium Potassium Chloride Carbon Dioxide Anion Gap BUN Creatinine Est GFR (CKD-EPI)AfAm Est GFR (CKD-EPI)NonAf POC Glucometer 214 Random Glucose Serum Osmolality Calcium Phosphorus Magnesium Total Bilirubin AST ALT Alkaline Phosphatase Total Protein Albumin Vitamin B12 Serum Folate Urine Color Urine Appearance Urine pH Ur Specific [place] Urine Protein Urine Glucose (UA) Urine Ketones Urine Blood Urine Nitrite Urine Bilirubin Urine Urobilinogen Ur Leukocyte Esterase Urine WBC (Auto) Urine RBC (Auto) Urine Casts (Auto) U Epithel Cells (Auto) Urine Bacteria (Auto) Urine Osmolality Active Medications Home Medications Medication Instructions Recorded Metformin HCl [Metformin HCl ER] 500 mg PO BID 05/01/19 Current Medications Acetaminophen (Ofirmev Injection -) 600 mg IVPB Q6H PRN PRN Reason: FEVER Last Admin: 05/03/19 20:52 Dose: 600 mg Chlorhexidine Gluconate (Hibiclens For Decolonization -) 1 applic TP HS [facility] Last Admin: 05/03/19 21:27 Dose: 1 applic Enoxaparin Sodium (Lovenox -) 40 mg SQ DAILY [facility] Last Admin: 05/04/19 10:20 Dose: 40 mg Meropenem 1 gm/ Dextrose 100 mls @ 200 mls/hr IVPB Q8H-IV JULISSA Last Admin: 05/04/19 10:20 Dose: 200 mls/hr Gentamicin Sulfate 200 mg/ (Sodium Chloride) 100 mls @ 100 mls/hr IVPB Q24H [facility] ; Protocol Last Admin: 05/03/19 21:06 Dose: 100 mls/hr Sodium Chloride (Normal Saline -) 1,000 mls @ 100 mls/hr IV ASDIR [facility] Last Admin: 05/04/19 08:30 Dose: 100 mls/hr Insulin Aspart (Novolog Vial Sliding Scale -) 1 vial SQ TIDAC [facility]; Protocol Last Admin: 05/04/19 10:42 Dose: 4 units Insulin Detemir (Levemir Vial) 12 units SQ DAILY@0700 [facility] Last Admin: 05/04/19 06:21 Dose: 12 units Mupirocin (Bactroban Ointment (For Decolonization) -) 1 applic NS BID [facility] Stop: 05/07/19 09:59 Last Admin: 05/04/19 10:20 Dose: 1 applic Potassium Phos/Sodium Phos (Phos-Nak Packet -) 1 packet PO TID [facility] Last Admin: 05/04/19 06:21 Dose: 1 packet ASSESSMENT/PLAN: Pt. is 58 y.o. cuban-speaking female with PMHx. history of NIDDM presenting to the hospital for acute shortness of breath that began after she drank two energy drinks. Pt. admitted for DKA. #Gram negative Bacteremia C/w meropenem and Gentamicin (Day 3)--> Creatinine less than 0.2 will continue to trend ID consult (Dr. Hill) appreciated. Awaiting sensitivities and speciation Latest BCx. drawn on 05/03 10 BCx. growing Ecoli. Sensitivities appreciated. f/u CXR for AM #Diabetic Ketoacidosis Endocrinology Consult appreciated (Dr. Smiley) D/C Insulin Gtt as gap has closed Started Levemir 12 units Q AM BGM ACHS ISS ACHS #Hypotension Pt. off pressors currently will continue to monitor BP decreased fluids to NS @ 100 b/c of diffuse crackles #Electrolyte imbalance /Pseudohyponatremia/Hypomagnesemia: monitor and replete as needed #Hypophosphatemia Phos 1.6; trending up from 1.0 on 05/03, will continue to replete, trending up #FEN Decreased NS to 100 from 250 as Pt. has crackles monitor and replete as detailed above Clear Liquid #DVT Ppx: Lovenox 40mg SQ Visit type - Emergency Visit Emergency Visit: Yes ED Registration Date: 05/01/19 Care time: The patient presented to the Emergency Department on the above date and was hospitalized for further evaluation of their emergent condition. - New Patient This patient is new to me today: Yes Date on this admission: 05/04/19 - Critical Care Critical Care patient: Yes Total Critical Care Time (in minutes): 35 Critical Care Statement: The care of this patient involved high complexity decision making to prevent further life threatening deterioration of the patient 's condition and/or to evaluate & treat vital organ system(s) failure or risk of failure. - Discharge Referral Referred to [facility] Med P.C.: No ATTENDING PHYSICIAN STATEMENT I saw and evaluated the patient. I reviewed the resident's note and discussed the case with the resident. I agree with the resident's findings and plan as documented. SUBJECTIVE: OBJECTIVE: ASSESSMENT AND PLAN:
[2019-05-04 11:45] LABS: ALBUMIN 1.8 g/dl (3.4-5.0); BILIRUBIN,TOTAL 0.2 mg/dL (0.2-1); CREATININE 0.2 mg/dL (0.55-1.3); TOT PROT 4.4 g/dl (6.4-8.2)
[2019-05-04 11:54] LABS: POTASSIUM 2.5 mmol/L (3.5-5.1)
[2019-05-04 11:55] LABS: CALCIUM 6.5 mg/dL (8.5-10.1)
[2019-05-04] MEDS: KCL 10 MEQ IVPB 10 MEQ/100 ML INFUS.BAG IVPB SCH ×3 (12:15→14:15)
--- NOTE | 2019-05-04 12:56 | ECHO ---
Name: YOLANDA WOODSON JAMILA KIMUELO Exam:Adult Echocardiogram Study Date: 05/04/2019 08:30 AM Age: 58 yrs Reason For Study: LV Function Height: 48 in Weight: 84 lb BSA: 1.1 m2 MMode/2D Measurements & Calculations IVSd: 0.95 cm Ao root diam: 2.3 cm LVIDd: 3.0 cm LA dimension: 1.8 cm LVIDs: 2.2 cm LVPWd: 0.93 cm EDV(Teich): 36.0 ml LVOT diam: 2.0 cm ESV(Teich): 16.0 ml LAV (MOD-bp): 26.3 ml Doppler Measurements & Calculations MV E max nehemias: 58.7 cm/sec Ao V2 max: 122.2 cm/sec MV A max nehemias: 99.4 cm/sec Ao max P.0 mmHg MV E/A: 0.59 MV dec time: 0.11 sec ACACIA(V,D): 2.6 cm2 LV V1 max P.0 mmHg TR max nehemias: 246.4 cm/sec LV V1 max: 100.4 cm/sec TR max P.4 mmHg PA V2 max: 97.7 cm/sec Med Peak E' Nehemias: 5.8 cm/sec PA max P.8 mmHg Med E/e': 10.2 Lat Peak E' Nehemias: 5.0 cm/sec Lat E/e': 11.7 Procedure A complete two-dimensional transthoracic echocardiogram was performed (2D, M-mode, Doppler and color flow Doppler). Left Ventricle The left ventricle is normal in size. Left ventricular systolic function is normal. Ejection Fraction = 55- 60%. Grade I diastolic dysfunction, (abnormal relaxation pattern). Ratio E/E'= 10. No regional wall m otion abnormalities noted. Right Ventricle The right ventricle is normal size. The right ventricular systolic function is normal. Atria The left atrial size is normal. LA volume index is 24 ml/m2. Right atrial size is normal. Mitral Valve There is mild mitral annular calcification. There is mild mitral regurgitation. Tricuspid Valve The tricuspid valve is normal in structure and function. There is mild tricuspid regurgitation. Pulmo nary artery systolic pressure is at least 30 mmHg if RA pressure is assumed 3 mmHg. Aortic Valve There is mild aortic sclerosis.;. No aortic regurgitation is present. Pulmonic Valve The pulmonic valve is not well visualized. Great Vessels The aortic root is normal size. Pericardium/Pleura There is no pericardial effusion. Interpretation Summary The left ventricle is normal in size. Left ventricular systolic function is normal. No regional wall motion abnormalities noted. Ejection Fraction = 55-60%. Grade I diastolic dysfunction, (abnormal relaxation pattern). Ratio E/E'= 10 The right ventricular systolic function is normal. The left atrial size is normal. Right atrial size is normal. There is mild mitral annular calcification. There is mild mitral regurgitation. There is mild tricuspid regurgitation. Pulmonary artery systolic pressure is at least 30 mmHg if RA pressure is assumed 3 mmHg There is mild aortic sclerosis. There is no pericardial effusion. Previous study is not available for comparison Tj Ryan MD 05/04/2019 12:55 PM
--- NOTE | 2019-05-04 12:59 | PN ---
Progress Note, Physician History of Present Illness: starting to feel better still with blood cx positive weak - Current Medication List Current Medications: Active Medications Acetaminophen (Ofirmev Injection -) 600 mg IVPB Q6H PRN PRN Reason: FEVER Last Admin: 05/03/19 20:52 Dose: 600 mg Chlorhexidine Gluconate (Hibiclens For Decolonization -) 1 applic TP HS [facility] Last Admin: 05/03/19 21:27 Dose: 1 applic Enoxaparin Sodium (Lovenox -) 40 mg SQ DAILY [facility] Last Admin: 05/04/19 10:20 Dose: 40 mg Meropenem 1 gm/ Dextrose 100 mls @ 200 mls/hr IVPB Q8H-IV JULISSA Last Admin: 05/04/19 10:20 Dose: 200 mls/hr Gentamicin Sulfate 200 mg/ (Sodium Chloride) 100 mls @ 100 mls/hr IVPB Q24H [facility] ; Protocol Last Admin: 05/03/19 21:06 Dose: 100 mls/hr Sodium Chloride (Normal Saline -) 1,000 mls @ 100 mls/hr IV ASDIR [facility] Last Admin: 05/04/19 08:30 Dose: 100 mls/hr Potassium Chloride (Potassium Chloride 10 Meq Premix Ivpb -) 10 meq in 100 mls @ 100 mls/hr IVPB Q60M [facility] Stop: 05/04/19 15:14 Last Admin: 05/04/19 12:15 Dose: 100 mls/hr Insulin Aspart (Novolog Vial Sliding Scale -) 1 vial SQ TIDAC [facility]; Protocol Last Admin: 05/04/19 10:42 Dose: 4 units Insulin Detemir (Levemir Vial) 12 units SQ DAILY@0700 [facility] Last Admin: 05/04/19 06:21 Dose: 12 units Mupirocin (Bactroban Ointment (For Decolonization) -) 1 applic NS BID [facility] Stop: 05/07/19 09:59 Last Admin: 05/04/19 10:20 Dose: 1 applic Potassium Phos/Sodium Phos (Phos-Nak Packet -) 1 packet PO TID [facility] Last Admin: 05/04/19 06:21 Dose: 1 packet - Objective Vital Signs: Vital Signs Temperature 99.0 F 05/04/19 12:00 Pulse Rate 99 H 05/04/19 12:00 Respiratory Rate 20 05/04/19 12:00 Blood Pressure 89/60 L 05/04/19 12:00 O2 Sat by Pulse Oximetry (%) 98 05/04/19 09:00 Constitutional: Yes: Calm, Thin, Other Cardiovascular: Yes: S1, S2 Respiratory: Yes: Regular, CTA Bilaterally Gastrointestinal: Yes: Normal Bowel Sounds, Soft Musculoskeletal: Yes: WNL Extremities: Yes: WNL Neurological: Yes: Alert, Oriented Psychiatric: Yes: Alert, Oriented Labs: CBC, BMP 05/03/19 05:54 05/04/19 11:00 INR, PTT INR 1.08 (0.83-1.09) 05/02/19 06:38 - ....Imaging Chest X-ray: Report Reviewed, Image Reviewed Assessment/Plan 58 y.o. female with PMH of DM presented with c/o weakness, SOB, nausea, and dysuria Sepsis Gram Negative Bacteremia UTI DKA plan 1 remove the central line 2 continue abx 3 send repeat blood cx 4 close monitoring 5 continue abx rest as per icu cc 40 min
--- NOTE | 2019-05-04 13:27 | PN ---
Teaching Attending Note Name of Resident: Wilder Cesar ATTENDING PHYSICIAN STATEMENT I saw and evaluated the patient. I reviewed the resident's note and discussed the case with the resident. I agree with the resident's findings and plan as documented. SUBJECTIVE: Patient is feeling better with no acute distress. in ICU OBJECTIVE: Vital Signs Temperature 99.0 F 05/04/19 12:00 Pulse Rate 99 H 05/04/19 12:00 Respiratory Rate 20 05/04/19 12:00 Blood Pressure 89/60 L 05/04/19 12:00 O2 Sat by Pulse Oximetry (%) 98 05/04/19 09:00 GENERAL: The patient is awake, alert, and fully oriented, in no acute distress. HEAD: Normal with no signs of trauma. EYES: PERRL, extraocular movements intact, sclera anicteric, conjunctiva clear. ENT: Ears normal, oropharynx clear without exudates, moist mucous membranes. NECK: Trachea midline, full range of motion, supple. LUNGS: Breath sounds equal, clear to auscultation bilaterally, no wheezes, no crackles, no accessory muscle use. HEART: RRR, S1, S2 positive , no murmur appreciated, rub or gallop. ABDOMEN: Soft, NT,ND, normoactive bowel sounds, no guarding, no rebound, no hepatosplenomegaly, no masses. EXTREMITIES: 2+ pulses, warm, well-perfused, no edema. NEUROLOGICAL: Cranial nerves II through XII grossly intact. Normal speech, gait not observed. PSYCH: Normal mood, normal affect. SKIN: Warm, dry, normal turgor, no rashes or lesions noted CBCD WBC 8.1 K/mm3 (4.0-10.0) 05/03/19 05:54 RBC 3.58 M/mm3 (3.60-5.2) L 05/03/19 05:54 Hgb 12.6 GM/dL (10.7-15.3) 05/03/19 05:54 Hct 36.3 % (32.4-45.2) 05/03/19 05:54 MCV 101.4 fl (80-96) H 05/03/19 05:54 MCHC 34.8 g/dl (32.0-36.0) 05/03/19 05:54 RDW 13.4 % (11.6-15.6) 05/03/19 05:54 Plt Count 140 K/MM3 (134-434) D 05/03/19 05:54 MPV 9.6 fl (7.5-11.1) 05/03/19 05:54 CMP Sodium 135 mmol/L (136-145) L 05/04/19 11:00 Potassium 2.5 mmol/L (3.5-5.1) L* 05/04/19 11:00 Chloride 100 mmol/L (98-107) 05/04/19 11:00 Carbon Dioxide 26 mmol/L (21-32) 05/04/19 11:00 Anion Gap 8 MMOL/L (8-16) 05/04/19 11:00 BUN 2.0 mg/dL (7-18) L* 05/04/19 11:00 Creatinine 0.2 mg/dL (0.55-1.3) L 05/04/19 11:00 Random Glucose 232 mg/dL (74-106) H 05/04/19 11:00 Calcium 6.5 mg/dL (8.5-10.1) L* 05/04/19 11:00 Total Bilirubin 0.2 mg/dL (0.2-1) 05/04/19 11:00 AST 62 U/L (15-37) H 05/04/19 11:00 ALT 34 U/L (13-61) 05/04/19 11:00 Alkaline Phosphatase 88 U/L (45-117) 05/04/19 11:00 Total Protein 4.4 g/dl (6.4-8.2) L 05/04/19 11:00 Albumin 1.8 g/dl (3.4-5.0) L 05/04/19 11:00 CARDIAC ENZYMES Creatine Kinase 22 U/L (26-192) L 05/01/19 20:40 Troponin I < 0.02 ng/ml (0.00-0.05) 05/01/19 20:40 Current Medications Generic Name Dose Route Start Last Admin Trade Name Freq PRN Reason Stop Dose Admin Acetaminophen 600 mg 05/02/19 16:08 05/03/19 20:52 Ofirmev Injection - IVPB 600 mg Q6H PRN Administration FEVER Chlorhexidine Gluconate 1 applic 05/02/19 22:00 05/03/19 21:27 Hibiclens For Decolonization - TP 1 applic HS JULISSA Administration Enoxaparin Sodium 40 mg 05/02/19 10:00 05/04/19 10:20 Lovenox - SQ 40 mg DAILY JULISSA Administration Meropenem 1 gm/ Dextrose 100 mls @ 200 mls/hr 05/01/19 23:45 05/04/19 10:20 IVPB 200 mls/hr Q8H-IV JULISSA Administration Gentamicin Sulfate 200 mg/ 100 mls @ 100 mls/hr 05/02/19 20:30 05/03/19 21:06 Sodium Chloride IVPB 100 mls/hr Q24H JULISSA Administration Protocol Sodium Chloride 1,000 mls @ 100 mls/hr 05/04/19 08:26 05/04/19 08:30 Normal Saline - IV 100 mls/hr ASDIR JULISSA Administration Potassium Chloride 10 meq in 100 mls @ 100 mls/hr 05/04/19 12:15 05/04/19 13: 15 Potassium Chloride 10 Meq Premix Ivpb - IVPB 05/04/19 15:14 100 mls/hr Q60M JULISSA Administration Insulin Aspart 1 vial 05/03/19 22:25 05/04/19 10:42 Novolog Vial Sliding Scale - SQ 4 units TIDAC [facility] Administration Protocol Insulin Detemir 12 units 05/04/19 07:00 05/04/19 06:21 Levemir Vial SQ 12 units DAILY@0700 [facility] Administration Mupirocin 1 applic 05/02/19 10:00 05/04/19 10:20 Bactroban Ointment (For Decolonization) - NS 05/07/19 09:59 1 applic BID JULISSA Administration Potassium Phos/Sodium Phos 1 packet 05/03/19 14:00 05/04/19 06:21 Phos-Nak Packet - PO 1 packet TID JULISSA Administration Home Medications Medication Instructions Recorded Metformin HCl [Metformin HCl ER] 500 mg PO BID 05/01/19 Microbiology 05/01/19 21:30 Blood - Peripheral Venous Blood Culture - Final Lactose Fermenting Neg Bacilli 05/01/19 22:00 Blood - Peripheral Venous Blood Culture - Final Escherichia Coli 05/01/19 22:00 Urine - Urine Clean Catch Urine Culture - Final Escherichia Coli 05/03/19 06:20 Blood - Peripheral Venous Blood Culture - Preliminary Lactose Fermenting Neg Bacilli 05/03/19 05:50 Blood - Peripheral Venous Blood Culture - Preliminary Lactose Fermenting Neg Bacilli 05/03/19 06:30 Urine - Urine Clean Catch Urine Culture - Final NO GROWTH OBTAINED Assessment and plan: Patient is 58yo slovenian-speaking female with PMHx history of non-insulin dependent diabetes mellitus presented to the hospital for acute shortness of breath that began earlier today around 4pm after she drank two energy drinks. #Gram negative Bacteremia: On meropenem /Gentamicin as per ID , continues to grow E.COLI on repeat bld cx, will repeat the bld cx for the 3rd set in am . #s/p Diabetic Ketoacidosis: on the case , off insulin drip, gap is closed now, on Levemir continue. #Electrolyte imbalance /Pseudohyponatremia/Hypomagnesemia: replete and repeat the levels in am # severe hypophos : being repleted continuosly DVT Px: lovenox continue ICU monitoring
--- NOTE | 2019-05-04 13:37 | PN ---
Teaching Attending Note Name of Resident: Zoraida Nair ATTENDING PHYSICIAN STATEMENT I saw and evaluated the patient. I reviewed the resident's note and discussed the case with the resident. I agree with the resident's findings and plan as documented. SUBJECTIVE: Pt seen and examined in the ICU. Remains borderline hypotensive. Briefly on pressors overnight. OBJECTIVE: Vital Signs Period Temp Pulse Resp BP Sys/Crow Pulse Ox Last 24 Hr 98.8 F-101.1 F 90-111 17-27 89-110/57-72 98-98 Intake & Output 05/01/19 05/02/19 05/03/19 05/04/19 23:59 23:59 23:59 23:59 Intake Total 5653 08147 2450 Output Total 1999 6850 400 Balance 3653 5652 0 Weight 38.102 kg 41.277 kg 43.137 kg 43.137 kg Gen: NAD at rest Heart: RRR Lung: decreased breath sounds at the bases Abd: soft, nontender Ext: no edema CBC, BMP 05/03/19 05:54 05/04/19 11:00 Active Medications Acetaminophen (Ofirmev Injection -) 600 mg IVPB Q6H PRN PRN Reason: FEVER Last Admin: 05/03/19 20:52 Dose: 600 mg Chlorhexidine Gluconate (Hibiclens For Decolonization -) 1 applic TP HS JULISSA Last Admin: 05/03/19 21:27 Dose: 1 applic Enoxaparin Sodium (Lovenox -) 40 mg SQ DAILY JULISSA Last Admin: 05/04/19 10:20 Dose: 40 mg Meropenem 1 gm/ Dextrose 100 mls @ 200 mls/hr IVPB Q8H-IV JULISSA Last Admin: 05/04/19 10:20 Dose: 200 mls/hr Gentamicin Sulfate 200 mg/ (Sodium Chloride) 100 mls @ 100 mls/hr IVPB Q24H JULISSA ; Protocol Last Admin: 05/03/19 21:06 Dose: 100 mls/hr Sodium Chloride (Normal Saline -) 1,000 mls @ 100 mls/hr IV ASDIR JULISSA Last Admin: 05/04/19 08:30 Dose: 100 mls/hr Potassium Chloride (Potassium Chloride 10 Meq Premix Ivpb -) 10 meq in 100 mls @ 100 mls/hr IVPB Q60M JULISSA Stop: 05/04/19 15:14 Last Admin: 05/04/19 13:15 Dose: 100 mls/hr Insulin Aspart (Novolog Vial Sliding Scale -) 1 vial SQ TIDAC [facility]; Protocol Last Admin: 05/04/19 10:42 Dose: 4 units Insulin Detemir (Levemir Vial) 12 units SQ DAILY@0700 [facility] Last Admin: 05/04/19 06:21 Dose: 12 units Mupirocin (Bactroban Ointment (For Decolonization) -) 1 applic NS BID [facility] Stop: 05/07/19 09:59 Last Admin: 05/04/19 10:20 Dose: 1 applic Potassium Phos/Sodium Phos (Phos-Nak Packet -) 1 packet PO TID [facility] Last Admin: 05/04/19 06:21 Dose: 1 packet ASSESSMENT AND PLAN: UTI Gram Negative Bacteremia Septic Shock DKA resolving - continue antibiotics - f/u cultures - IVF boluses - O2 to keep SpO2 >90% - monitor urine output, creatinine - replete lytes - DVT prophylaxis - continue ICU monitoring critical care time spent in reviewing chart, evaluating patient and formulating plan 35 min
[2019-05-04] MEDS ORDERED: SODIUM CHLORIDE 500 ML IV STA (14:31)
--- NOTE | 2019-05-04 15:46 | PN ---
Physical Exam: SUBJECTIVE: Patient seen and examined at bedside. pt has no acute complaints. OBJECTIVE: Vital Signs Period Temp Pulse Resp BP Sys/Crow Pulse Ox Last 24 Hr 98.5 F-101.1 F 90-111 17-27 83-110/57-72 98-98 GENERAL: The patient is awake, alert, and fully oriented, in no acute distress. LUNGS: Breath sounds equal, clear to auscultation bilaterally, no wheezes, no crackles, no accessory muscle use. HEART: Regular rate and rhythm, S1, S2 ABDOMEN: Soft, nontender, nondistended, normoactive bowel sounds, no guarding EXTREMITIES: 2+ pulses, warm, well-perfused, no edema. SKIN: Warm, dry, normal turgor, no rashes or lesions noted Laboratory Results - last 24 hr 05/03/19 05/03/19 05/04/19 20:30 22:19 05:30 Sodium 138 Potassium 2.9 L* Chloride 103 Carbon Dioxide 26 Anion Gap 9 BUN 1.7 L* Creatinine < 0.2 L Est GFR (CKD-EPI)AfAm 168.33 Est GFR (CKD-EPI)NonAf 145.24 POC Glucometer 203 Random Glucose 92 Calcium 6.6 L* Phosphorus 1.0 L* 1.6 L Magnesium 1.9 2.0 Total Bilirubin 0.2 AST 51 H ALT 33 Alkaline Phosphatase 93 Total Protein 4.6 L Albumin 1.8 L Vitamin B12 > 6000 H Serum Folate Urine Color Urine Appearance Urine pH Ur Specific [place] Urine Protein Urine Glucose (UA) Urine Ketones Urine Blood Urine Nitrite Urine Bilirubin Urine Urobilinogen Ur Leukocyte Esterase Urine WBC (Auto) Urine RBC (Auto) Urine Casts (Auto) U Epithel Cells (Auto) Urine Bacteria (Auto) 05/04/19 05/04/19 05/04/19 05:50 10:40 11:00 Sodium 135 L Potassium 2.5 L* Chloride 100 Carbon Dioxide 26 Anion Gap 8 BUN 2.0 L* Creatinine 0.2 L Est GFR (CKD-EPI)AfAm 168.33 Est GFR (CKD-EPI)NonAf 145.23 POC Glucometer 93 214 Random Glucose 232 H Calcium 6.5 L* Phosphorus Magnesium Total Bilirubin 0.2 AST 62 H ALT 34 Alkaline Phosphatase 88 Total Protein 4.4 L Albumin 1.8 L Vitamin B12 Serum Folate Urine Color Urine Appearance Urine pH Ur Specific [place] Urine Protein Urine Glucose (UA) Urine Ketones Urine Blood Urine Nitrite Urine Bilirubin Urine Urobilinogen Ur Leukocyte Esterase Urine WBC (Auto) Urine RBC (Auto) Urine Casts (Auto) U Epithel Cells (Auto) Urine Bacteria (Auto) Current Medications Acetaminophen (Ofirmev Injection -) 600 mg IVPB Q6H PRN PRN Reason: FEVER Last Admin: 05/03/19 20:52 Dose: 600 mg Chlorhexidine Gluconate (Hibiclens For Decolonization -) 1 applic TP HS [facility] Last Admin: 05/03/19 21:27 Dose: 1 applic Enoxaparin Sodium (Lovenox -) 40 mg SQ DAILY [facility] Last Admin: 05/04/19 10:20 Dose: 40 mg Meropenem 1 gm/ Dextrose 100 mls @ 200 mls/hr IVPB Q8H-IV [facility] Last Admin: 05/04/19 10:20 Dose: 200 mls/hr Gentamicin Sulfate 200 mg/ (Sodium Chloride) 100 mls @ 100 mls/hr IVPB Q24H [facility] ; Protocol Last Admin: 05/03/19 21:06 Dose: 100 mls/hr Sodium Chloride (Normal Saline -) 1,000 mls @ 100 mls/hr IV ASDIR [facility] Last Admin: 05/04/19 08:30 Dose: 100 mls/hr Insulin Aspart (Novolog Vial Sliding Scale -) 1 vial SQ TIDAC [facility]; Protocol Last Admin: 05/04/19 10:42 Dose: 4 units Insulin Detemir (Levemir Vial) 12 units SQ DAILY@0700 [facility] Last Admin: 05/04/19 06:21 Dose: 12 units Mupirocin (Bactroban Ointment (For Decolonization) -) 1 applic NS BID [facility] Stop: 05/07/19 09:59 Last Admin: 05/04/19 10:20 Dose: 1 applic Potassium Phos/Sodium Phos (Phos-Nak Packet -) 1 packet PO TID [facility] Last Admin: 05/04/19 13:57 Dose: 1 packet Microbiology 05/01/19 21:30 Blood - Peripheral Venous Blood Culture - Final Lactose Fermenting Neg Bacilli 05/01/19 22:00 Blood - Peripheral Venous Blood Culture - Final Escherichia Coli 05/01/19 22:00 Urine - Urine Clean Catch Urine Culture - Final Escherichia Coli 05/03/19 06:20 Blood - Peripheral Venous Blood Culture - Preliminary Lactose Fermenting Neg Bacilli 05/03/19 05:50 Blood - Peripheral Venous Blood Culture - Preliminary Lactose Fermenting Neg Bacilli 05/03/19 06:30 Urine - Urine Clean Catch Urine Culture - Final NO GROWTH OBTAINED ASSESSMENT/PLAN: 58 y/o F with a significant PMH of NIDDM who presented to [facility] due to shortness of breath, chest pain, and palpitations after drinking 2 energy drinks and found to be in DKA. Neuro: awake, alert, oriented x 3 Endo: DKA - BG in 150's. -s/p > 6 L IVF -Insulin gtt discontinued 05/03 -c.w levemir 7 HS, insulin sliding scale -c/w bgm -NS boluses to help increase map >65 ID:septic shock, UTI, bacteremia -+ blood cultures and urine cultures, gram neg lactose fermenting bacilli -+UA - s/p vanco, fluconazole - will continue Meropenem/gentamicin for now with close monitoring of renal function -DC central line -pressors used overnight, pt has been off pressors throughout the day. BP responds to fluids -ID recs appreciated F/E/N -Monitor Electrolytes. -hypomagnesemia, repleted -hypophosphatemia, repleted -Diabetic Diet -c/w IV NS @ 100 mls / hr and bolus as needed DVT ppx: HEPQTID Dispo: We will continue to follow the patient. Thank you for this consultative opportunity. Visit type - Emergency Visit Emergency Visit: No - New Patient This patient is new to me today: No - Critical Care Critical Care patient: Yes Total Critical Care Time (in minutes): 39 Critical Care Statement: The care of this patient involved high complexity decision making to prevent further life threatening deterioration of the patient 's condition and/or to evaluate & treat vital organ system(s) failure or risk of failure. ATTENDING PHYSICIAN STATEMENT I saw and evaluated the patient. I reviewed the resident's note and discussed the case with the resident. I agree with the resident's findings and plan as documented. SUBJECTIVE: OBJECTIVE: ASSESSMENT AND PLAN:
[2019-05-04] MEDS ORDERED: POTASSIUM CHLORIDE TABS 20 MEQ TABLET.ER (FP) PO ONE (15:47)
[2019-05-04 15:51] LABS: MAGNESIUM 1.9 mg/dL (1.8-2.4); PHOSPHOROUS 1.5 mg/dL (2.5-4.9)
[2019-05-04 21:14] LABS: ALBUMIN 1.7 g/dl (3.4-5.0); BILIRUBIN,TOTAL 0.2 mg/dL (0.2-1); BLOOD UREA NITROGEN 3.2 mg/dL (7-18); CREATININE 0.3 mg/dL (0.55-1.3); MAGNESIUM 1.8 mg/dL (1.8-2.4); TOT PROT 4.6 g/dl (6.4-8.2)
[2019-05-04 21:18] LABS: CALCIUM 6.5 mg/dL (8.5-10.1); PHOSPHOROUS 0.9 mg/dL (2.5-4.9)
[2019-05-04] MEDS ORDERED: PT OWN MED DRAWER 7, Y5N ONE (21:22)
[2019-05-04] MEDS ORDERED: SODIUM PHOSPHATE - 30 MM in SODIUM CHLORIDE 250 ML IVPB ONE (22:00)
[2019-05-04] MEDS: CHLORHEXIDINE GLUCONATE 4% CLEANSER FOR DECOLONIZATION TP SCH (22:04)
[2019-05-04] MEDS: SODIUM CHLORIDE IVPB SCH (22:16)
[2019-05-04] MEDS: GENTAMICIN IVPB SCH (22:16)
[2019-05-04] MEDS ORDERED: Insulin (LOG) Aspart 100 UNITS/ML VIAL SQ ONE (22:52)
[2019-05-05] MEDS ORDERED: MEROPENEM 1 GM VIAL (RESTRICTED TO ID) IVPB ONE ×4 (02:05→21:54)
[2019-05-05] MEDS ORDERED: DEXTROSE 5%-WATER 100 ML IVPB ONE ×4 (02:06→21:54)
[2019-05-05] MEDS: MEROPENEM 1 GM in DEXTROSE 5%-WATER 100 ML IVPB SCH ×3 (02:31→17:01)
[2019-05-05] MEDS: INSULIN (LEVEMIR) 100 UNITS/ML UNITS SQ SCH (06:34)
[2019-05-05] MEDS: INSULIN SLIDING SCALE (NOVOLOG) 1 VIAL SQ SCH ×3 (06:34→17:01)
[2019-05-05] MEDS: NAPH,MB-DB/K PH,MBDB POWDER PACKET PO SCH ×3 (06:35→22:14)
[2019-05-05 07:18] LABS: BASO % 0.7 % (0-2.0); EOS % 0.2 % (0-4.5); HEMATOCRIT 33.4 % (32.4-45.2); HEMOGLOBIN 11.7 GM/dL (10.7-15.3); LYMPH % 24.9 % (8-40); MCH 35.3 pg (25.7-33.7); MEAN CELL VOLUME 100.8 fl (80-96); MEAN PLT VOLUME 9.8 fl (7.5-11.1); MONO % 18.5 % (3.8-10.2); NEUT % 55.7 % (42.8-82.8); PLATELET COUNT 138 K/MM3 (134-434); RBC 3.31 M/mm3 (3.60-5.2); RDW 13.5 % (11.6-15.6)
[2019-05-05 07:37] LABS: ALBUMIN 1.8 g/dl (3.4-5.0); BILIRUBIN,TOTAL 0.4 mg/dL (0.2-1); CREATININE 0.2 mg/dL (0.55-1.3); MAGNESIUM 1.9 mg/dL (1.8-2.4); PHOSPHOROUS 2.4 mg/dL (2.5-4.9); POTASSIUM 3.9 mmol/L (3.5-5.1); TOT PROT 4.6 g/dl (6.4-8.2)
[2019-05-05] MEDS ORDERED: NAPH,MB-DB/K PH,MBDB POWDER PACKET PO ONE (08:15)
[2019-05-05] MEDS: SODIUM CHLORIDE 1,000 ML IV SCH ×2 (08:26→14:11)
--- NOTE | 2019-05-05 09:17 | PN ---
Progress Note (short form) - Note Progress Note: Feels good Denies any complaints Vital Signs Period Temp Pulse Resp BP Sys/Crow Pulse Ox Last 24 Hr 98.2 F-99.6 F 83-99 9-28 83-99/55-62 92 PE: AOx3 Neck: Supple, No JVD HEENT: PERRL, EOMI Lungs: CTA CVs: s1S2 Abd: Benign Ext: No edema Neuro: No focal deficit CMP Sodium 137 mmol/L (136-145) 05/05/19 05:20 Potassium 3.9 mmol/L (3.5-5.1) 05/05/19 05:20 Chloride 105 mmol/L (98-107) 05/05/19 05:20 Carbon Dioxide 27 mmol/L (21-32) 05/05/19 05:20 Anion Gap 6 MMOL/L (8-16) L 05/05/19 05:20 BUN 4.0 mg/dL (7-18) L 05/05/19 05:20 Creatinine 0.2 mg/dL (0.55-1.3) L 05/05/19 05:20 Est GFR (CKD-EPI)AfAm 168.33 05/05/19 05:20 Est GFR (CKD-EPI)NonAf 145.23 05/05/19 05:20 POC Glucometer 256 UNITS (80-120) 05/05/19 06:14 Random Glucose 291 mg/dL (74-106) H 05/05/19 05:20 Hemoglobin A1c % 14.0 % (4.2-6.3) H 05/02/19 06:38 Serum Osmolality 268 mosm/kg (278-305) L 05/03/19 05:54 Lactic Acid 1.0 mmol/L (0.4-2.0) 05/02/19 22:00 Calcium 7.0 mg/dL (8.5-10.1) L 05/05/19 05:20 Phosphorus 2.4 mg/dL (2.5-4.9) L 05/05/19 05:20 Magnesium 1.9 mg/dL (1.8-2.4) 05/05/19 05:20 Total Bilirubin 0.4 mg/dL (0.2-1) 05/05/19 05:20 GGT 16 U/L (5-85) 05/02/19 06:38 AST 57 U/L (15-37) H 05/05/19 05:20 ALT 45 U/L (13-61) 05/05/19 05:20 Alkaline Phosphatase 111 U/L (45-117) 05/05/19 05:20 Creatine Kinase 22 U/L (26-192) L 05/01/19 20:40 Troponin I < 0.02 ng/ml (0.00-0.05) 05/01/19 20:40 B-Natriuretic Peptide 465.6 pg/ml (5-125) H 05/01/19 20:40 Total Protein 4.6 g/dl (6.4-8.2) L 05/05/19 05:20 Albumin 1.8 g/dl (3.4-5.0) L 05/05/19 05:20 Vitamin B12 > 6000 pg/ml (193-986) H 05/04/19 05:30 Serum Folate 11 ng/mL (3.1-17.5) 05/03/19 15:30 Beta-Hydroxybutyrate > 46.0 mg/dL (0.2-2.8) H 05/01/19 20:40 Current Medications Generic Name Dose Route Start Last Admin Trade Name Freq PRN Reason Stop Dose Admin Acetaminophen 600 mg 05/02/19 16:08 05/03/19 20:52 Ofirmev Injection - IVPB 600 mg Q6H PRN Administration FEVER Chlorhexidine Gluconate 1 applic 05/02/19 22:00 05/04/19 22:04 Hibiclens For Decolonization - TP 1 applic HS JULISSA Administration Enoxaparin Sodium 40 mg 05/02/19 10:00 05/04/19 10:20 Lovenox - SQ 40 mg DAILY JULISSA Administration Meropenem 1 gm/ Dextrose 100 mls @ 200 mls/hr 05/01/19 23:45 05/05/19 02:31 IVPB 200 mls/hr Q8H-IV JULISSA Administration Gentamicin Sulfate 200 mg/ 100 mls @ 100 mls/hr 05/02/19 20:30 05/04/19 22:16 Sodium Chloride IVPB 100 mls/hr Q24H JULISSA Administration Protocol Sodium Chloride 1,000 mls @ 100 mls/hr 05/04/19 08:26 05/04/19 16:03 Normal Saline - IV 100 mls/hr ASDIR JULISSA Administration Insulin Aspart 1 vial 05/03/19 22:25 05/05/19 06:34 Novolog Vial Sliding Scale - SQ 6 units TIDAC JULISSA Administration Protocol Insulin Detemir 12 units 05/04/19 07:00 05/05/19 06:34 Levemir Vial SQ 12 units DAILY@0700 JULISSA Administration Mupirocin 1 applic 05/02/19 10:00 05/04/19 22:11 Bactroban Ointment (For Decolonization) - NS 05/07/19 09:59 1 applic BID JULISSA Administration Potassium Phos/Sodium Phos 1 packet 05/03/19 14:00 05/05/19 06:35 Phos-Nak Packet - PO 1 packet TID JULISSA Administration AP: DKA T2DM Sepsis/UTI Acidosis resolved Off Insulin drip Levemir 12 units daily with Novolog coverage Adjust Insulin dose as necessary. Electrolyte replacement as necessary O2 as needed Continue Meropenem/Genta
[2019-05-05] MEDS: ENOXAPARIN NA (PORCINE) 40 MG/0.4 ML DISP.SYRIN SQ SCH (09:18)
[2019-05-05 10:37] LABS: ANISOCYTOSIS 1+; MACROCYTOSIS 1+; PLATELET ESTIMATE DECREASED
[2019-05-05] MEDS: MUPIROCIN 2% TOPICAL OINTMENT FOR DECOLONIZATION NS SCH ×2 (10:58→22:16)
--- NOTE | 2019-05-05 12:10 | PN ---
Physical Exam: SUBJECTIVE: Patient seen and examined in the ICU. Remains off pressors. Denies shortness of breath, chest pain, abdominal pain. No fevers nausea, vomiting. Central line removed yesterday given risk of infection. OBJECTIVE: Vital Signs Period Temp Pulse Resp BP Sys/Crow Pulse Ox Last 24 Hr 98.2 F-99.2 F 83-108 9-28 83-99/55-62 92-96 GENERAL: The patient is awake, alert, and fully oriented, in no acute distress. HEAD: Normal with no signs of trauma. NECK: Trachea midline, full range of motion, supple. LUNGS: Breath sounds equal, clear to auscultation bilaterally, no wheezes, no crackles, no accessory muscle use. HEART: Regular rate and rhythm, S1, S2 without murmur, rub or gallop. ABDOMEN: Soft, nontender, nondistended, normoactive bowel sounds, no guarding EXTREMITIES: warm, well-perfused, no edema. PSYCH: Normal mood, normal affect. SKIN: Warm, dry, no rashes or lesions noted Laboratory Results - last 24 hr 05/04/19 05/04/19 05/04/19 11:00 17:12 19:30 WBC RBC Hgb Hct MCV MCH MCHC RDW Plt Count MPV Absolute Neuts (auto) Neutrophils % Neutrophils % (Manual) Band Neutrophils % Lymphocytes % Lymphocytes % (Manual) Monocytes % Monocytes % (Manual) Eosinophils % Eosinophils % (Manual) Basophils % Basophils % (Manual) Myelocytes % (Man) Promyelocytes % (Man) Blast Cells % (Manual) Nucleated RBC % Metamyelocytes Hypochromia Platelet Estimate Polychromasia Poikilocytosis Anisocytosis Microcytosis Macrocytosis Sodium 135 L 133 L Potassium 2.5 L* 4.0 Chloride 100 101 Carbon Dioxide 26 24 Anion Gap 8 8 BUN 2.0 L* 3.2 L Creatinine 0.2 L 0.3 L Est GFR (CKD-EPI)AfAm 168.33 147.31 Est GFR (CKD-EPI)NonAf 145.23 127.10 POC Glucometer 214 Random Glucose 232 H 259 H Calcium 6.5 L* 6.5 L* Phosphorus 1.5 L 0.9 L* Magnesium 1.9 1.8 Total Bilirubin 0.2 0.2 AST 62 H 82 H ALT 34 43 Alkaline Phosphatase 88 108 Total Protein 4.4 L 4.6 L Albumin 1.8 L 1.7 L 05/05/19 05/05/19 05/05/19 05:20 06:14 06:20 WBC 3.0 L RBC 3.31 L Hgb 11.7 Hct 33.4 MCV 100.8 H MCH 35.3 H MCHC 35.0 RDW 13.5 Plt Count 138 MPV 9.8 Absolute Neuts (auto) 1.6 Neutrophils % 55.7 D Neutrophils % (Manual) 62.6 Band Neutrophils % 8.1 Lymphocytes % 24.9 D Lymphocytes % (Manual) 17.2 D Monocytes % 18.5 H D Monocytes % (Manual) 7 Eosinophils % 0.2 D Eosinophils % (Manual) 1.0 D Basophils % 0.7 D Basophils % (Manual) 0.0 Myelocytes % (Man) 0 D Promyelocytes % (Man) 0 D Blast Cells % (Manual) 0 Nucleated RBC % 0 Metamyelocytes 0 D Hypochromia 0 Platelet Estimate Decreased Polychromasia 0 Poikilocytosis 0 Anisocytosis 1+ Microcytosis 0 Macrocytosis 1+ Sodium 137 Potassium 3.9 Chloride 105 Carbon Dioxide 27 Anion Gap 6 L BUN 4.0 L Creatinine 0.2 L Est GFR (CKD-EPI)AfAm 168.33 Est GFR (CKD-EPI)NonAf 145.23 POC Glucometer 256 Random Glucose 291 H Calcium 7.0 L Phosphorus 2.4 L Magnesium 1.9 Total Bilirubin 0.4 AST 57 H ALT 45 Alkaline Phosphatase 111 Total Protein 4.6 L Albumin 1.8 L 05/05/19 10:56 WBC RBC Hgb Hct MCV MCH MCHC RDW Plt Count MPV Absolute Neuts (auto) Neutrophils % Neutrophils % (Manual) Band Neutrophils % Lymphocytes % Lymphocytes % (Manual) Monocytes % Monocytes % (Manual) Eosinophils % Eosinophils % (Manual) Basophils % Basophils % (Manual) Myelocytes % (Man) Promyelocytes % (Man) Blast Cells % (Manual) Nucleated RBC % Metamyelocytes Hypochromia Platelet Estimate Polychromasia Poikilocytosis Anisocytosis Microcytosis Macrocytosis Sodium Potassium Chloride Carbon Dioxide Anion Gap BUN Creatinine Est GFR (CKD-EPI)AfAm Est GFR (CKD-EPI)NonAf POC Glucometer 349 Random Glucose Calcium Phosphorus Magnesium Total Bilirubin AST ALT Alkaline Phosphatase Total Protein Albumin Active Medications Generic Name Dose Route Start Last Admin Trade Name Freq PRN Reason Stop Dose Admin Acetaminophen 600 mg 05/02/19 16:08 05/03/19 20:52 Ofirmev Injection - IVPB 600 mg Q6H PRN Administration FEVER Chlorhexidine Gluconate 1 applic 05/02/19 22:00 05/04/19 22:04 Hibiclens For Decolonization - TP 1 applic HS JULISSA Administration Enoxaparin Sodium 40 mg 05/02/19 10:00 05/05/19 09:18 Lovenox - SQ 40 mg DAILY JULISSA Administration Meropenem 1 gm/ Dextrose 100 mls @ 200 mls/hr 05/01/19 23:45 05/05/19 09:18 IVPB 200 mls/hr Q8H-IV JULISSA Administration Gentamicin Sulfate 200 mg/ 100 mls @ 100 mls/hr 05/02/19 20:30 05/04/19 22:16 Sodium Chloride IVPB 100 mls/hr Q24H JULISSA Administration Protocol Sodium Chloride 1,000 mls @ 100 mls/hr 05/04/19 08:26 05/05/19 08:26 Normal Saline - IV Not Given ASDIR [facility] Insulin Aspart 1 vial 05/03/19 22:25 05/05/19 10:57 Novolog Vial Sliding Scale - SQ 8 units TIDAC [facility] Administration Protocol Insulin Detemir 12 units 05/04/19 07:00 05/05/19 06:34 Levemir Vial SQ 12 units DAILY@0700 [facility] Administration Mupirocin 1 applic 05/02/19 10:00 05/05/19 10:58 Bactroban Ointment (For Decolonization) - NS 05/07/19 09:59 1 applic BID JULISSA Administration Potassium Phos/Sodium Phos 1 packet 05/03/19 14:00 05/05/19 06:35 Phos-Nak Packet - PO 1 packet TID JULISSA Administration ASSESSMENT/PLAN: 58 y/o F with a significant PMH of NIDDM who presented to [facility] due to shortness of breath, chest pain, and palpitations after drinking 2 energy drinks and found to be in DKA. ID:septic shock, UTI, bacteremia -+ blood cultures and urine cultures, gram neg lactose fermenting bacilli -+UA - will continue Meropenem but d/c gentamycin per primary teams request given pt' s renal function - BP stable off pressors - Hypotensive and tachycardic, BP responds to fluids -leukopenic now previosuly was leukocytosis, (wbc 3) but afebrile -ID recs appreciated Endo: DKA resolved -Insulin gtt discontinued 05/03 -c.w levemir 12 daily, insulin sliding scale per endo's recs. -c/w bgm monitoring -NS boluses to help increase map >65 - no longer has central line so cannot assess CVP Neuro: awake, alert, oriented x 3 F/E/N -Monitor Electrolytes. -hypomagnesemia, repleted -hypophosphatemia, repleted -Diabetic Diet -c/w IV NS @ 100 mls / hr and bolus as needed DVT ppx: HEPQTID Dispo: We will continue to follow the patient. Thank you for this consultative opportunity. Visit type - Emergency Visit Emergency Visit: Yes ED Registration Date: 05/01/19 Care time: The patient presented to the Emergency Department on the above date and was hospitalized for further evaluation of their emergent condition. - New Patient This patient is new to me today: No - Critical Care Critical Care patient: Yes Total Critical Care Time (in minutes): 35 Critical Care Statement: The care of this patient involved high complexity decision making to prevent further life threatening deterioration of the patient 's condition and/or to evaluate & treat vital organ system(s) failure or risk of failure. - Discharge Referral Referred to [facility] Yes ATTENDING PHYSICIAN STATEMENT I saw and evaluated the patient. I reviewed the resident's note and discussed the case with the resident. I agree with the resident's findings and plan as documented. SUBJECTIVE: OBJECTIVE: ASSESSMENT AND PLAN:
--- NOTE | 2019-05-05 12:11 | PN ---
Teaching Attending Note Name of Resident: Asad Hernandez ATTENDING PHYSICIAN STATEMENT I saw and evaluated the patient. I reviewed the resident's note and discussed the case with the resident. I agree with the resident's findings and plan as documented. SUBJECTIVE: Pt seen and examined in the ICU. Remains off pressors. Denies shortness of breath, chest pain, abdominal pain. No fevers recorded. OBJECTIVE: Vital Signs Period Temp Pulse Resp BP Sys/Crow Pulse Ox Last 24 Hr 98.2 F-99.2 F 83-108 9-28 83-99/55-62 92-96 Intake & Output 05/02/19 05/03/19 05/04/19 05/05/19 23:59 23:59 23:59 23:59 Intake Total 5653 59502 4400 1767 Output Total 1999 6850 400 500 Balance 3653 5652 4000 1267 Weight 41.277 kg 43.137 kg 43.137 kg Gen: NAD at rest Heart: RRR Lung: decreased breath sounds at the bases Abd: soft, nontender Ext: no edema CBC, BMP 05/05/19 06:20 05/05/19 05:20 Active Medications Acetaminophen (Ofirmev Injection -) 600 mg IVPB Q6H PRN PRN Reason: FEVER Last Admin: 05/03/19 20:52 Dose: 600 mg Chlorhexidine Gluconate (Hibiclens For Decolonization -) 1 applic TP HS JULISSA Last Admin: 05/04/19 22:04 Dose: 1 applic Enoxaparin Sodium (Lovenox -) 40 mg SQ DAILY JULISSA Last Admin: 05/05/19 09:18 Dose: 40 mg Meropenem 1 gm/ Dextrose 100 mls @ 200 mls/hr IVPB Q8H-IV JULISSA Last Admin: 05/05/19 09:18 Dose: 200 mls/hr Gentamicin Sulfate 200 mg/ (Sodium Chloride) 100 mls @ 100 mls/hr IVPB Q24H JULISSA ; Protocol Last Admin: 05/04/19 22:16 Dose: 100 mls/hr Sodium Chloride (Normal Saline -) 1,000 mls @ 100 mls/hr IV ASDIR [facility] Last Admin: 05/05/19 08:26 Dose: Not Given Insulin Aspart (Novolog Vial Sliding Scale -) 1 vial SQ TIDAC [facility]; Protocol Last Admin: 05/05/19 10:57 Dose: 8 units Insulin Detemir (Levemir Vial) 12 units SQ DAILY@0700 [facility] Last Admin: 05/05/19 06:34 Dose: 12 units Mupirocin (Bactroban Ointment (For Decolonization) -) 1 applic NS BID [facility] Stop: 05/07/19 09:59 Last Admin: 05/05/19 10:58 Dose: 1 applic Potassium Phos/Sodium Phos (Phos-Nak Packet -) 1 packet PO TID [facility] Last Admin: 05/05/19 06:35 Dose: 1 packet ASSESSMENT AND PLAN: UTI Gram Negative Bacteremia Septic Shock DKA resolving - continue antibiotics - f/u pending cultures - IVF boluses - O2 to keep SpO2 >90% - monitor urine output, creatinine - replete lytes - DVT prophylaxis - continue ICU monitoring
--- NOTE | 2019-05-05 13:16 | PN ---
Progress Note, Physician History of Present Illness: patient stable looks much better line removed repeat blood cx awaited labile blood pressure - Current Medication List Current Medications: Active Medications Acetaminophen (Ofirmev Injection -) 600 mg IVPB Q6H PRN PRN Reason: FEVER Last Admin: 05/03/19 20:52 Dose: 600 mg Chlorhexidine Gluconate (Hibiclens For Decolonization -) 1 applic TP HS [facility] Last Admin: 05/04/19 22:04 Dose: 1 applic Enoxaparin Sodium (Lovenox -) 40 mg SQ DAILY [facility] Last Admin: 05/05/19 09:18 Dose: 40 mg Meropenem 1 gm/ Dextrose 100 mls @ 200 mls/hr IVPB Q8H-IV [facility] Last Admin: 05/05/19 09:18 Dose: 200 mls/hr Sodium Chloride (Normal Saline -) 1,000 mls @ 100 mls/hr IV ASDIR [facility] Last Admin: 05/05/19 08:26 Dose: Not Given Insulin Aspart (Novolog Vial Sliding Scale -) 1 vial SQ TIDAC [facility]; Protocol Last Admin: 05/05/19 10:57 Dose: 8 units Insulin Detemir (Levemir Vial) 12 units SQ DAILY@0700 [facility] Last Admin: 05/05/19 06:34 Dose: 12 units Mupirocin (Bactroban Ointment (For Decolonization) -) 1 applic NS BID [facility] Stop: 05/07/19 09:59 Last Admin: 05/05/19 10:58 Dose: 1 applic Potassium Phos/Sodium Phos (Phos-Nak Packet -) 1 packet PO TID [facility] Last Admin: 05/05/19 06:35 Dose: 1 packet - Objective Vital Signs: Vital Signs Temperature 99.2 F 05/05/19 10:00 Pulse Rate 94 H 05/05/19 12:00 Respiratory Rate 21 H 05/05/19 12:00 Blood Pressure 85/53 L 05/05/19 12:00 O2 Sat by Pulse Oximetry (%) 96 05/05/19 09:00 Constitutional: Yes: No Distress, Calm HENT: Yes: Atraumatic Cardiovascular: Yes: Regular Rate and Rhythm Respiratory: Yes: Regular, CTA Bilaterally Gastrointestinal: Yes: Normal Bowel Sounds, Soft Musculoskeletal: Yes: WNL Extremities: Yes: WNL Neurological: Yes: Alert, Oriented Psychiatric: Yes: Alert, Oriented Labs: CBC, BMP 05/05/19 06:20 05/05/19 05:20 INR, PTT INR 1.08 (0.83-1.09) 05/02/19 06:38 Assessment/Plan 58 y.o. female with PMH of DM presented with c/o weakness, SOB, nausea, and dysuria Sepsis Gram Negative Bacteremia UTI DKA plan continue abx await for repeat blood cx close watch rest as per hte team hydration monitor bp rest as per icu cc 40 min
--- NOTE | 2019-05-05 14:32 | PN ---
Physical Exam: SUBJECTIVE: Patient seen and examined. pt offered no complaints. No abdominal pain or fevers. AAOx3 OBJECTIVE: Vital Signs Period Temp Pulse Resp BP Sys/Crow Pulse Ox Last 24 Hr 97.7 F-99.2 F 83-108 9-28 82-99/53-62 92-96 GENERAL: The patient is awake, alert, and fully oriented, in no acute distress. HEAD: Normal with no signs of trauma. NECK: Trachea midline, full range of motion, supple. LUNGS: Breath sounds equal, clear to auscultation bilaterally, no wheezes, no crackles, no accessory muscle use. HEART: Regular rate and rhythm, S1, S2 without murmur, rub or gallop. ABDOMEN: Soft, nontender, nondistended, normoactive bowel sounds, no guarding EXTREMITIES: warm, well-perfused, no edema. PSYCH: Normal mood, normal affect. SKIN: Warm, dry, no rashes or lesions noted Laboratory Results - last 24 hr 05/04/19 05/04/19 05/04/19 11:00 17:12 19:30 WBC RBC Hgb Hct MCV MCH MCHC RDW Plt Count MPV Absolute Neuts (auto) Neutrophils % Neutrophils % (Manual) Band Neutrophils % Lymphocytes % Lymphocytes % (Manual) Monocytes % Monocytes % (Manual) Eosinophils % Eosinophils % (Manual) Basophils % Basophils % (Manual) Myelocytes % (Man) Promyelocytes % (Man) Blast Cells % (Manual) Nucleated RBC % Metamyelocytes Hypochromia Platelet Estimate Polychromasia Poikilocytosis Anisocytosis Microcytosis Macrocytosis Sodium 135 L 133 L Potassium 2.5 L* 4.0 Chloride 100 101 Carbon Dioxide 26 24 Anion Gap 8 8 BUN 2.0 L* 3.2 L Creatinine 0.2 L 0.3 L Est GFR (CKD-EPI)AfAm 168.33 147.31 Est GFR (CKD-EPI)NonAf 145.23 127.10 POC Glucometer 214 Random Glucose 232 H 259 H Calcium 6.5 L* 6.5 L* Phosphorus 1.5 L 0.9 L* Magnesium 1.9 1.8 Total Bilirubin 0.2 0.2 AST 62 H 82 H ALT 34 43 Alkaline Phosphatase 88 108 Total Protein 4.4 L 4.6 L Albumin 1.8 L 1.7 L 05/05/19 05/05/19 05/05/19 05:20 06:14 06:20 WBC 3.0 L RBC 3.31 L Hgb 11.7 Hct 33.4 MCV 100.8 H MCH 35.3 H MCHC 35.0 RDW 13.5 Plt Count 138 MPV 9.8 Absolute Neuts (auto) 1.6 Neutrophils % 55.7 D Neutrophils % (Manual) 62.6 Band Neutrophils % 8.1 Lymphocytes % 24.9 D Lymphocytes % (Manual) 17.2 D Monocytes % 18.5 H D Monocytes % (Manual) 7 Eosinophils % 0.2 D Eosinophils % (Manual) 1.0 D Basophils % 0.7 D Basophils % (Manual) 0.0 Myelocytes % (Man) 0 D Promyelocytes % (Man) 0 D Blast Cells % (Manual) 0 Nucleated RBC % 0 Metamyelocytes 0 D Hypochromia 0 Platelet Estimate Decreased Polychromasia 0 Poikilocytosis 0 Anisocytosis 1+ Microcytosis 0 Macrocytosis 1+ Sodium 137 Potassium 3.9 Chloride 105 Carbon Dioxide 27 Anion Gap 6 L BUN 4.0 L Creatinine 0.2 L Est GFR (CKD-EPI)AfAm 168.33 Est GFR (CKD-EPI)NonAf 145.23 POC Glucometer 256 Random Glucose 291 H Calcium 7.0 L Phosphorus 2.4 L Magnesium 1.9 Total Bilirubin 0.4 AST 57 H ALT 45 Alkaline Phosphatase 111 Total Protein 4.6 L Albumin 1.8 L 05/05/19 10:56 WBC RBC Hgb Hct MCV MCH MCHC RDW Plt Count MPV Absolute Neuts (auto) Neutrophils % Neutrophils % (Manual) Band Neutrophils % Lymphocytes % Lymphocytes % (Manual) Monocytes % Monocytes % (Manual) Eosinophils % Eosinophils % (Manual) Basophils % Basophils % (Manual) Myelocytes % (Man) Promyelocytes % (Man) Blast Cells % (Manual) Nucleated RBC % Metamyelocytes Hypochromia Platelet Estimate Polychromasia Poikilocytosis Anisocytosis Microcytosis Macrocytosis Sodium Potassium Chloride Carbon Dioxide Anion Gap BUN Creatinine Est GFR (CKD-EPI)AfAm Est GFR (CKD-EPI)NonAf POC Glucometer 349 Random Glucose Calcium Phosphorus Magnesium Total Bilirubin AST ALT Alkaline Phosphatase Total Protein Albumin Active Medications Generic Name Dose Route Start Last Admin Trade Name Freq PRN Reason Stop Dose Admin Acetaminophen 600 mg 05/02/19 16:08 05/03/19 20:52 Ofirmev Injection - IVPB 600 mg Q6H PRN Administration FEVER Chlorhexidine Gluconate 1 applic 05/02/19 22:00 05/04/19 22:04 Hibiclens For Decolonization - TP 1 applic HS JULISSA Administration Enoxaparin Sodium 40 mg 05/02/19 10:00 05/05/19 09:18 Lovenox - SQ 40 mg DAILY JULISSA Administration Meropenem 1 gm/ Dextrose 100 mls @ 200 mls/hr 05/01/19 23:45 05/05/19 09:18 IVPB 200 mls/hr Q8H-IV JULISSA Administration Sodium Chloride 1,000 mls @ 100 mls/hr 05/04/19 08:26 05/05/19 14:11 Normal Saline - IV 100 mls/hr ASDIR JULISSA Administration Insulin Aspart 1 vial 05/03/19 22:25 05/05/19 10:57 Novolog Vial Sliding Scale - SQ 8 units TIDAC JULISSA Administration Protocol Insulin Detemir 12 units 05/04/19 07:00 05/05/19 06:34 Levemir Vial SQ 12 units DAILY@0700 JULISSA Administration Mupirocin 1 applic 05/02/19 10:00 05/05/19 10:58 Bactroban Ointment (For Decolonization) - NS 05/07/19 09:59 1 applic BID JULISSA Administration Potassium Phos/Sodium Phos 1 packet 05/03/19 14:00 05/05/19 14:09 Phos-Nak Packet - PO 1 packet TID JULISSA Administration ASSESSMENT/PLAN: 58 y/o F with a significant PMH of NIDDM who presented to [facility] due to shortness of breath, chest pain, and palpitations after drinking 2 energy drinks and found to be in DKA. septic shock, UTI, bacteremia leukopenic now previosuly was leukocytosis, (wbc 3) but afebrile blood cultures and urine cultures, gram neg lactose fermenting bacilli pending speciation and sensitivity continue Meropenem but d/c gentamycin BP stable low but stable for pt weight Hypotensive and tachycardic, BP responds to fluids NS@100cc/hr per ID following DKA resolved Insulin gtt discontinued 05/03 currently on levemir 12 daily, insulin sliding scale per endo's recs. c/w bgm monitoring F/E/N -Monitor Electrolytes. replete as needed -c/w IV NS @ 100 mls / hr and bolus as needed DVT ppx HEP subQ Visit type - Emergency Visit Emergency Visit: Yes ED Registration Date: 05/01/19 Care time: The patient presented to the Emergency Department on the above date and was hospitalized for further evaluation of their emergent condition. - New Patient This patient is new to me today: Yes Date on this admission: 05/05/19 - Critical Care Critical Care patient: Yes Total Critical Care Time (in minutes): 35 Critical Care Statement: The care of this patient involved high complexity decision making to prevent further life threatening deterioration of the patient 's condition and/or to evaluate & treat vital organ system(s) failure or risk of failure. - Discharge Referral Referred to [facility] Med [facility] No ATTENDING PHYSICIAN STATEMENT I saw and evaluated the patient. I reviewed the resident's note and discussed the case with the resident. I agree with the resident's findings and plan as documented. SUBJECTIVE: OBJECTIVE: ASSESSMENT AND PLAN:
--- NOTE | 2019-05-05 22:13 | PN ---
Teaching Attending Note Name of Resident: Emma Mari ATTENDING PHYSICIAN STATEMENT I saw and evaluated the patient. I reviewed the resident's note and discussed the case with the resident. I agree with the resident's findings and plan as documented. SUBJECTIVE: Patient is feeling better but still having a low blood pressure. OBJECTIVE: Vital Signs Temperature 97.7 F 05/05/19 18:00 Pulse Rate 84 05/05/19 20:00 Respiratory Rate 25 H 05/05/19 21:00 Blood Pressure 97/57 L 05/05/19 20:00 O2 Sat by Pulse Oximetry (%) 96 05/05/19 21:00 GENERAL: The patient is awake, alert, and fully oriented, in no acute distress. HEAD: Normal with no signs of trauma. EYES: PERRL, extraocular movements intact, sclera anicteric, conjunctiva clear. ENT: Ears normal, oropharynx clear without exudates, moist mucous membranes. NECK: Trachea midline, full range of motion, supple. LUNGS: Breath sounds equal, clear to auscultation bilaterally, no wheezes, no crackles, no accessory muscle use. HEART: RRR, S1, S2 positive , no murmur appreciated, rub or gallop. ABDOMEN: Soft, NT,ND, normoactive bowel sounds, no guarding, no rebound, no hepatosplenomegaly, no masses. EXTREMITIES: 2+ pulses, warm, well-perfused, no edema. NEUROLOGICAL: Cranial nerves II through XII grossly intact. Normal speech, gait not observed. PSYCH: Normal mood, normal affect. SKIN: Warm, dry, normal turgor, no rashes or lesions noted CBCD WBC 3.0 K/mm3 (4.0-10.0) L 05/05/19 06:20 RBC 3.31 M/mm3 (3.60-5.2) L 05/05/19 06:20 Hgb 11.7 GM/dL (10.7-15.3) 05/05/19 06:20 Hct 33.4 % (32.4-45.2) 05/05/19 06:20 MCV 100.8 fl (80-96) H 05/05/19 06:20 MCHC 35.0 g/dl (32.0-36.0) 05/05/19 06:20 RDW 13.5 % (11.6-15.6) 05/05/19 06:20 Plt Count 138 K/MM3 (134-434) 05/05/19 06:20 MPV 9.8 fl (7.5-11.1) 05/05/19 06:20 CMP Sodium 137 mmol/L (136-145) 05/05/19 05:20 Potassium 3.9 mmol/L (3.5-5.1) 05/05/19 05:20 Chloride 105 mmol/L (98-107) 05/05/19 05:20 Carbon Dioxide 27 mmol/L (21-32) 05/05/19 05:20 Anion Gap 6 MMOL/L (8-16) L 05/05/19 05:20 BUN 4.0 mg/dL (7-18) L 05/05/19 05:20 Creatinine 0.2 mg/dL (0.55-1.3) L 05/05/19 05:20 Random Glucose 291 mg/dL (74-106) H 05/05/19 05:20 Calcium 7.0 mg/dL (8.5-10.1) L 05/05/19 05:20 Total Bilirubin 0.4 mg/dL (0.2-1) 05/05/19 05:20 AST 57 U/L (15-37) H 05/05/19 05:20 ALT 45 U/L (13-61) 05/05/19 05:20 Alkaline Phosphatase 111 U/L (45-117) 05/05/19 05:20 Total Protein 4.6 g/dl (6.4-8.2) L 05/05/19 05:20 Albumin 1.8 g/dl (3.4-5.0) L 05/05/19 05:20 CARDIAC ENZYMES Creatine Kinase 22 U/L (26-192) L 05/01/19 20:40 Troponin I < 0.02 ng/ml (0.00-0.05) 05/01/19 20:40 Current Medications Generic Name Dose Route Start Last Admin Trade Name Freq PRN Reason Stop Dose Admin Acetaminophen 600 mg 05/02/19 16:08 05/03/19 20:52 Ofirmev Injection - IVPB 600 mg Q6H PRN Administration FEVER Chlorhexidine Gluconate 1 applic 05/02/19 22:00 05/04/19 22:04 Hibiclens For Decolonization - TP 1 applic HS JULISSA Administration Enoxaparin Sodium 40 mg 05/02/19 10:00 05/05/19 09:18 Lovenox - SQ 40 mg DAILY JULISSA Administration Meropenem 1 gm/ Dextrose 100 mls @ 200 mls/hr 05/01/19 23:45 05/05/19 17:01 IVPB 200 mls/hr Q8H-IV JULISSA Administration Sodium Chloride 1,000 mls @ 100 mls/hr 05/04/19 08:26 05/05/19 14:11 Normal Saline - IV 100 mls/hr ASDIR JULISSA Administration Insulin Aspart 1 vial 05/05/19 15:28 05/05/19 17:01 Novolog Vial Sliding Scale - SQ 6 units TIDAC JULISSA Administration Protocol Insulin Detemir 12 units 05/04/19 07:00 05/05/19 06:34 Levemir Vial SQ 12 units DAILY@0700 JULISSA Administration Mupirocin 1 applic 05/02/19 10:00 05/05/19 10:58 Bactroban Ointment (For Decolonization) - NS 05/07/19 09:59 1 applic BID JULISSA Administration Potassium Phos/Sodium Phos 1 packet 05/03/19 14:00 05/05/19 14:09 Phos-Nak Packet - PO 1 packet TID JULISSA Administration Home Medications Medication Instructions Recorded Metformin HCl [Metformin HCl ER] 500 mg PO BID 05/01/19 Microbiology 05/04/19 19:30 Blood - Peripheral Venous Blood Culture - Preliminary NO GROWTH OBTAINED AFTER 24 HOURS, INCUBATION TO CONTINUE FOR 4 DAYS. 05/04/19 19:45 Blood - Peripheral Venous Blood Culture - Preliminary NO GROWTH OBTAINED AFTER 24 HOURS, INCUBATION TO CONTINUE FOR 4 DAYS. 05/03/19 06:20 Blood - Peripheral Venous Blood Culture - Final Lactose Fermenting Neg Bacilli 05/03/19 05:50 Blood - Peripheral Venous Blood Culture - Final Escherichia Coli 05/01/19 21:30 Blood - Peripheral Venous Blood Culture - Final Lactose Fermenting Neg Bacilli 05/01/19 22:00 Blood - Peripheral Venous Blood Culture - Final Escherichia Coli 05/01/19 22:00 Urine - Urine Clean Catch Urine Culture - Final Escherichia Coli 05/03/19 06:30 Urine - Urine Clean Catch Urine Culture - Final NO GROWTH OBTAINED Assessment and plan: Patient is 58yo egyptian-speaking female with PMHx history of non-insulin dependent diabetes mellitus presented to the hospital for acute shortness of breath that began earlier today around 4pm after she drank two energy drinks. #Gram negative Bacteremia: On meropenem , Gentamicin discontinued today as per ID , continues to grow E.COLI on repeat bld cx, follow the 3rd set of the bld cx #s/p Diabetic Ketoacidosis: on the case , off insulin drip, gap is closed now, on Levemir continue. #Electrolyte imbalance repelet as needed # severe hypophos : being repleted continuosly DVT Px: lovenox continue ICU monitoring tx out of icu when stable
[2019-05-05] MEDS: CHLORHEXIDINE GLUCONATE 4% CLEANSER FOR DECOLONIZATION TP SCH (22:16)
[2019-05-06] MEDS: MEROPENEM 1 GM in DEXTROSE 5%-WATER 100 ML IVPB SCH ×3 (01:44→17:58)
[2019-05-06] MEDS: NAPH,MB-DB/K PH,MBDB POWDER PACKET PO SCH ×3 (06:06→21:55)
[2019-05-06] MEDS: INSULIN (LEVEMIR) 100 UNITS/ML UNITS SQ SCH (06:06)
[2019-05-06] MEDS: INSULIN SLIDING SCALE (NOVOLOG) 1 VIAL SQ SCH ×3 (06:07→17:57)
[2019-05-06 06:58] LABS: BASO % 0.5 % (0-2.0); EOS % 0.3 % (0-4.5); HEMATOCRIT 35.6 % (32.4-45.2); HEMOGLOBIN 12.7 GM/dL (10.7-15.3); MCH 35.2 pg (25.7-33.7); MCHC 35.7 g/dl (32.0-36.0); MEAN CELL VOLUME 98.6 fl (80-96); MEAN PLT VOLUME 8.8 fl (7.5-11.1); MONO % 20.8 % (3.8-10.2); NEUT % 52.4 % (42.8-82.8); PLATELET COUNT 174 K/MM3 (134-434); RBC 3.61 M/mm3 (3.60-5.2); RDW 13.4 % (11.6-15.6); WHITE BLOOD COUNT 4.4 K/mm3 (4.0-10.0)
[2019-05-06 07:18] LABS: ALBUMIN 1.9 g/dl (3.4-5.0); BILIRUBIN,TOTAL 0.3 mg/dL (0.2-1); BLOOD UREA NITROGEN 5.6 mg/dL (7-18); CALCIUM 7.4 mg/dL (8.5-10.1); CREATININE 0.2 mg/dL (0.55-1.3); MAGNESIUM 1.5 mg/dL (1.8-2.4); PHOSPHOROUS 2.2 mg/dL (2.5-4.9); POTASSIUM 3.3 mmol/L (3.5-5.1); TOT PROT 4.9 g/dl (6.4-8.2)
[2019-05-06] MEDS ORDERED: DEXTROSE 5%-WATER 100 ML IVPB ONE ×2 (08:14→17:56)
[2019-05-06] MEDS ORDERED: MEROPENEM 1 GM VIAL (RESTRICTED TO ID) IVPB ONE ×2 (08:14→17:56)
[2019-05-06] MEDS: SODIUM CHLORIDE 1,000 ML IV SCH (08:59)
[2019-05-06] MEDS ORDERED: MAGNESIUM SULF 50% (8.12 MEQ/2 ML-1 GM VIAL) IVPB ONE (09:00)
[2019-05-06] MEDS ORDERED: NAPH,MB-DB/K PH,MBDB POWDER PACKET PO ONE (09:00)
[2019-05-06] MEDS: ENOXAPARIN NA (PORCINE) 40 MG/0.4 ML DISP.SYRIN SQ SCH (09:15)
[2019-05-06] MEDS: MUPIROCIN 2% TOPICAL OINTMENT FOR DECOLONIZATION NS SCH (09:16)
[2019-05-06] MEDS: KCL 10 MEQ IVPB 10 MEQ/100 ML INFUS.BAG IVPB SCH ×2 (09:34→10:21)
[2019-05-06] MEDS ORDERED: INSULIN (LEVEMIR) 100 UNITS/ML UNITS SQ SCH (09:41)
[2019-05-06 09:42] LABS: ANISOCYTOSIS 0; MACROCYTOSIS 0; PLATELET ESTIMATE NORMAL
--- NOTE | 2019-05-06 12:08 | PN ---
Teaching Attending Note Name of Resident: Asad Hernandez ATTENDING PHYSICIAN STATEMENT I saw and evaluated the patient. I reviewed the resident's note and discussed the case with the resident. I agree with the resident's findings and plan as documented. SUBJECTIVE: Pt seen and examined in the ICU. Feels better. No fevers or chills. Last blood cultures negative to date. OBJECTIVE: Vital Signs Period Temp Pulse Resp BP Sys/Crow Pulse Ox Last 24 Hr 97.6 F-98.6 F 64-91 12-25 82-125/52-65 96-98 Intake & Output 05/03/19 05/04/19 05/05/19 05/06/19 23:59 23:59 23:59 23:59 Intake Total 39831 4400 3867 1450 Output Total 6850 400 500 Balance 5652 4000 3367 1450 Weight 43.137 kg 43.137 kg 43.091 kg Gen: NAD at rest Heart: RRR Lung: decreased breath sounds at the bases Abd: soft, nontender Ext: no edema CBC, BMP 05/06/19 05:15 05/06/19 05:15 Active Medications Acetaminophen (Ofirmev Injection -) 600 mg IVPB Q6H PRN PRN Reason: FEVER Last Admin: 05/03/19 20:52 Dose: 600 mg Chlorhexidine Gluconate (Hibiclens For Decolonization -) 1 applic TP HS JULISSA Last Admin: 05/05/19 22:16 Dose: 1 applic Enoxaparin Sodium (Lovenox -) 40 mg SQ DAILY JULISSA Last Admin: 05/06/19 09:15 Dose: 40 mg Meropenem 1 gm/ Dextrose 100 mls @ 200 mls/hr IVPB Q8H-IV JULISSA Last Admin: 05/06/19 09:01 Dose: 200 mls/hr Insulin Aspart (Novolog Vial Sliding Scale -) 1 vial SQ TIDAC [facility]; Protocol Last Admin: 05/06/19 11:52 Dose: 4 units Insulin Detemir (Levemir Vial) 16 units SQ DAILY@0700 JULISSA Mupirocin (Bactroban Ointment (For Decolonization) -) 1 applic NS BID JULISSA Stop: 05/07/19 09:59 Last Admin: 05/06/19 09:16 Dose: 1 applic Potassium Phos/Sodium Phos (Phos-Nak Packet -) 1 packet PO TID [facility] Last Admin: 05/06/19 06:06 Dose: 1 packet ASSESSMENT AND PLAN: UTI Gram Negative Bacteremia Septic Shock DKA resolving - continue antibiotics - f/u pending cultures - IVF boluses as needed - O2 to keep SpO2 >90% - monitor urine output, creatinine - replete lytes - DVT prophylaxis - can monitor on floor
[2019-05-06] MEDS ORDERED: ACETAMINOPHEN 1000 MG/100 ML VIAL (NON FORMULARY) IVPB PRN (12:41)
--- NOTE | 2019-05-06 13:30 | PN ---
Progress Note, Physician History of Present Illness: stable doing well no new issues improving bp remaining stable - Current Medication List Current Medications: Active Medications Acetaminophen (Ofirmev Injection -) 600 mg IVPB Q6H PRN PRN Reason: FEVER Chlorhexidine Gluconate (Hibiclens For Decolonization -) 1 applic TP HS JULISSA Enoxaparin Sodium (Lovenox -) 40 mg SQ DAILY JULISSA Meropenem 1 gm/ Dextrose 100 mls @ 200 mls/hr IVPB Q8H-IV JULISSA Insulin Aspart (Novolog Vial Sliding Scale -) 1 vial SQ TIDAC JULISSA; Protocol Insulin Detemir (Levemir Vial) 16 units SQ DAILY@0700 JULISSA Mupirocin (Bactroban Ointment (For Decolonization) -) 1 applic NS BID JULISSA Stop: 05/07/19 09:59 Potassium Phos/Sodium Phos (Phos-Nak Packet -) 1 packet PO TID JULISSA - Objective Vital Signs: Vital Signs Temperature 98.6 F 05/06/19 10:00 Pulse Rate 74 05/06/19 12:00 Respiratory Rate 12 05/06/19 12:00 Blood Pressure 105/73 05/06/19 12:00 O2 Sat by Pulse Oximetry (%) 98 05/06/19 09:00 Constitutional: Yes: No Distress, Calm Cardiovascular: Yes: S1, S2 Respiratory: Yes: Regular, CTA Bilaterally Gastrointestinal: Yes: Normal Bowel Sounds, Soft Musculoskeletal: Yes: WNL Extremities: Yes: WNL Neurological: Yes: Alert, Oriented Psychiatric: Yes: Alert, Oriented Labs: CBC, BMP 05/06/19 05:15 05/06/19 05:15 INR, PTT INR 1.08 (0.83-1.09) 05/02/19 06:38 Assessment/Plan 58 y.o. female with PMH of DM presented with c/o weakness, SOB, nausea, and dysuria Sepsis Gram Negative Bacteremia UTI DKA plan continue abx await for repeat blood cx close watch rest as per hte team hydration monitor bp rest as per icu cc 40 min
--- NOTE | 2019-05-06 13:35 | PN ---
Physical Exam: SUBJECTIVE: Patient seen and examined in ICU. No acute events. Denies abd pain, nausea, vomiting, able to get oob to chair and eat and drink. D/c fluids before rounds. OBJECTIVE: Vital Signs Period Temp Pulse Resp BP Sys/Crow Pulse Ox Last 24 Hr 97.6 F-98.6 F 64-91 12-25 82-125/52-73 96-98 GENERAL: The patient is awake, alert, and fully oriented, in no acute distress. HEAD: Normal with no signs of trauma. NECK: supple. LUNGS: Breath sounds equal, clear to auscultation bilaterally, no wheezes, no crackles, no accessory muscle use. HEART: Regular rate and rhythm, S1, S2 without murmur, rub or gallop. ABDOMEN: Soft, nontender, nondistended, normoactive bowel sounds, no guarding, no rebound EXTREMITIES: 2+ dp pulses, warm, well-perfused, no edema. SKIN: Warm, no rashes or lesions noted Laboratory Results - last 24 hr 05/05/19 05/05/19 05/06/19 16:57 21:52 05:15 WBC 4.4 RBC 3.61 Hgb 12.7 Hct 35.6 MCV 98.6 H MCH 35.2 H MCHC 35.7 RDW 13.4 Plt Count 174 D MPV 8.8 D Absolute Neuts (auto) 2.3 Neutrophils % 52.4 Neutrophils % (Manual) 55.8 Band Neutrophils % 2.9 Lymphocytes % 26.0 Lymphocytes % (Manual) 19.2 Monocytes % 20.8 H Monocytes % (Manual) 13 H D Eosinophils % 0.3 Eosinophils % (Manual) 0.0 D Basophils % 0.5 Basophils % (Manual) 1.0 D Myelocytes % (Man) 0 Promyelocytes % (Man) 0 Blast Cells % (Manual) 0 Nucleated RBC % 0 Metamyelocytes 0 Hypochromia 0 Platelet Estimate Normal Polychromasia 0 Poikilocytosis 0 Anisocytosis 0 Microcytosis 0 Macrocytosis 0 Sodium Potassium Chloride Carbon Dioxide Anion Gap BUN Creatinine Est GFR (CKD-EPI)AfAm Est GFR (CKD-EPI)NonAf POC Glucometer 232 265 Random Glucose Calcium Phosphorus Magnesium Total Bilirubin AST ALT Alkaline Phosphatase Total Protein Albumin 05/06/19 05/06/19 05/06/19 05:15 06:03 11:50 WBC RBC Hgb Hct MCV MCH MCHC RDW Plt Count MPV Absolute Neuts (auto) Neutrophils % Neutrophils % (Manual) Band Neutrophils % Lymphocytes % Lymphocytes % (Manual) Monocytes % Monocytes % (Manual) Eosinophils % Eosinophils % (Manual) Basophils % Basophils % (Manual) Myelocytes % (Man) Promyelocytes % (Man) Blast Cells % (Manual) Nucleated RBC % Metamyelocytes Hypochromia Platelet Estimate Polychromasia Poikilocytosis Anisocytosis Microcytosis Macrocytosis Sodium 138 Potassium 3.3 L Chloride 101 Carbon Dioxide 29 Anion Gap 8 BUN 5.6 L Creatinine 0.2 L Est GFR (CKD-EPI)AfAm 168.33 Est GFR (CKD-EPI)NonAf 145.23 POC Glucometer 266 193 Random Glucose 280 H Calcium 7.4 L Phosphorus 2.2 L Magnesium 1.5 L Total Bilirubin 0.3 AST 34 ALT 41 Alkaline Phosphatase 125 H Total Protein 4.9 L Albumin 1.9 L Active Medications Generic Name Dose Route Start Last Admin Trade Name Freq PRN Reason Stop Dose Admin Acetaminophen 600 mg 05/06/19 12:41 Ofirmev Injection - IVPB Q6H PRN FEVER Chlorhexidine Gluconate 1 applic 05/06/19 22:00 Hibiclens For Decolonization - TP HS [facility] Enoxaparin Sodium 40 mg 05/07/19 10:00 Lovenox - SQ DAILY [facility] Meropenem 1 gm/ Dextrose 100 mls @ 200 mls/hr 05/06/19 18:00 IVPB Q8H-IV JULISSA Insulin Aspart 1 vial 05/06/19 16:30 Novolog Vial Sliding Scale - SQ TIDAC [facility] Protocol Insulin Detemir 16 units 05/07/19 07:00 Levemir Vial SQ DAILY@0700 [facility] Mupirocin 1 applic 05/06/19 22:00 Bactroban Ointment (For Decolonization) - NS 05/07/19 09:59 BID [facility] Potassium Phos/Sodium Phos 1 packet 05/06/19 14:00 Phos-Nak Packet - PO TID [facility] ASSESSMENT/PLAN: 58 y/o F with a significant PMH of NIDDM who presented to [facility] due to shortness of breath, chest pain, and palpitations after drinking 2 energy drinks and found to be in DKA. ID:septic shock, UTI, bacteremia -+ blood cultures and urine cultures, gram neg lactose fermenting bacilli - will continue Meropenem s/p genta discontinuing. - BP stable off pressors - Hypotensive and tachycardic, BP responds to fluids -leukopenic now previosuly was leukocytosis, (wbc 3->4.4) but afebrile -ID recs appreciated- Endo: DKA resolved -Insulin gtt discontinued 05/03 -c.w levemir 12 daily, insulin sliding scale per endo's recs. -c/w bgm monitoring -NS boluses to help increase map >65 Neuro: awake, alert, oriented x 3 F/E/N -Monitor Electrolytes. -hypomagnesemia, repleted -hypophosphatemia, repleted -Diabetic Diet, phone manager evaluated pt for diet change. -d/c IV NS as pt eating and drinking maintaining MAP>65 DVT ppx: HEPQTID Dispo: Patient is now medically stable for discharge to /S. Thank you for this consultative opportunity. Visit type - Emergency Visit Emergency Visit: Yes ED Registration Date: 05/01/19 Care time: The patient presented to the Emergency Department on the above date and was hospitalized for further evaluation of their emergent condition. - New Patient This patient is new to me today: No - Critical Care Critical Care patient: Yes Total Critical Care Time (in minutes): 35 Critical Care Statement: The care of this patient involved high complexity decision making to prevent further life threatening deterioration of the patient 's condition and/or to evaluate & treat vital organ system(s) failure or risk of failure. - Discharge Referral Referred to [facility] Med [facility].: No ATTENDING PHYSICIAN STATEMENT I saw and evaluated the patient. I reviewed the resident's note and discussed the case with the resident. I agree with the resident's findings and plan as documented. SUBJECTIVE: OBJECTIVE: ASSESSMENT AND PLAN:
--- NOTE | 2019-05-06 14:04 | PN ---
Teaching Attending Note Name of Resident: Wilder Cesar ATTENDING PHYSICIAN STATEMENT I saw and evaluated the patient. I reviewed the resident's note and discussed the case with the resident. I agree with the resident's findings and plan as documented. SUBJECTIVE: no abd pain , no diarrhea, no TALBERT , no N/V. dfeels much better OBJECTIVE: NAd Cv : RRr Lungs: CTAB Abd: soft, NT, ND , NL BS Ext : No edema ASSESSMENT AND PLAN: Patient is 58yo lady with PMHx history of non-insulin dependent diabetes mellitus who presented with abd pain and SOB and was found to have DKA and sepsis 1- DKA: resolved 2- E coli bacteremia , source is likely complicated UTI, less likely colitis 3- electrolytes abnormalities : hypokalemia, hypomagnesemia, and hypophosphatemia 4- Old compression Fx plan : - increase levemir to 16 units in am - cont SSI - cont meropenem - blood cx neg x 24 hr. follow - replete electrolytes and repeat - Lovenox - transfer to med Surg
[2019-05-06 15:12] VITALS: BMI 29.0
--- NOTE | 2019-05-06 15:32 | PN ---
Physical Exam: SUBJECTIVE: Patient seen and examined. no complaints OBJECTIVE: Vital Signs Period Temp Pulse Resp BP Sys/Crow Pulse Ox Last 24 Hr 97.6 F-98.6 F 64-90 12-25 85-125/52-73 96-98 GENERAL: The patient is awake, alert, and fully oriented, in no acute distress. HEAD: Normal with no signs of trauma. NECK: Trachea midline, full range of motion, supple. LUNGS: Breath sounds equal, clear to auscultation bilaterally, no wheezes, no crackles, no accessory muscle use. HEART: Regular rate and rhythm, S1, S2 without murmur, rub or gallop. ABDOMEN: Soft, nontender, nondistended, normoactive bowel sounds, no guarding EXTREMITIES: warm, well-perfused, no edema. PSYCH: Normal mood, normal affect. SKIN: Warm, dry, no rashes or lesions noted Laboratory Results - last 24 hr 05/05/19 05/05/19 05/06/19 16:57 21:52 05:15 WBC 4.4 RBC 3.61 Hgb 12.7 Hct 35.6 MCV 98.6 H MCH 35.2 H MCHC 35.7 RDW 13.4 Plt Count 174 D MPV 8.8 D Absolute Neuts (auto) 2.3 Neutrophils % 52.4 Neutrophils % (Manual) 55.8 Band Neutrophils % 2.9 Lymphocytes % 26.0 Lymphocytes % (Manual) 19.2 Monocytes % 20.8 H Monocytes % (Manual) 13 H D Eosinophils % 0.3 Eosinophils % (Manual) 0.0 D Basophils % 0.5 Basophils % (Manual) 1.0 D Myelocytes % (Man) 0 Promyelocytes % (Man) 0 Blast Cells % (Manual) 0 Nucleated RBC % 0 Metamyelocytes 0 Hypochromia 0 Platelet Estimate Normal Polychromasia 0 Poikilocytosis 0 Anisocytosis 0 Microcytosis 0 Macrocytosis 0 Sodium Potassium Chloride Carbon Dioxide Anion Gap BUN Creatinine Est GFR (CKD-EPI)AfAm Est GFR (CKD-EPI)NonAf POC Glucometer 232 265 Random Glucose Calcium Phosphorus Magnesium Total Bilirubin AST ALT Alkaline Phosphatase Total Protein Albumin 05/06/19 05/06/19 05/06/19 05:15 06:03 11:50 WBC RBC Hgb Hct MCV MCH MCHC RDW Plt Count MPV Absolute Neuts (auto) Neutrophils % Neutrophils % (Manual) Band Neutrophils % Lymphocytes % Lymphocytes % (Manual) Monocytes % Monocytes % (Manual) Eosinophils % Eosinophils % (Manual) Basophils % Basophils % (Manual) Myelocytes % (Man) Promyelocytes % (Man) Blast Cells % (Manual) Nucleated RBC % Metamyelocytes Hypochromia Platelet Estimate Polychromasia Poikilocytosis Anisocytosis Microcytosis Macrocytosis Sodium 138 Potassium 3.3 L Chloride 101 Carbon Dioxide 29 Anion Gap 8 BUN 5.6 L Creatinine 0.2 L Est GFR (CKD-EPI)AfAm 168.33 Est GFR (CKD-EPI)NonAf 145.23 POC Glucometer 266 193 Random Glucose 280 H Calcium 7.4 L Phosphorus 2.2 L Magnesium 1.5 L Total Bilirubin 0.3 AST 34 ALT 41 Alkaline Phosphatase 125 H Total Protein 4.9 L Albumin 1.9 L Active Medications Generic Name Dose Route Start Last Admin Trade Name Freq PRN Reason Stop Dose Admin Acetaminophen 600 mg 05/06/19 12:41 Ofirmev Injection - IVPB Q6H PRN FEVER Chlorhexidine Gluconate 1 applic 05/06/19 22:00 Hibiclens For Decolonization - TP HS [facility] Enoxaparin Sodium 40 mg 05/07/19 10:00 Lovenox - SQ DAILY [facility] Meropenem 1 gm/ Dextrose 100 mls @ 200 mls/hr 05/06/19 18:00 IVPB Q8H-IV [facility] Insulin Aspart 1 vial 05/06/19 16:30 Novolog Vial Sliding Scale - SQ TIDAC [facility] Protocol Insulin Detemir 16 units 05/07/19 07:00 Levemir Vial SQ DAILY@0700 [facility] Mupirocin 1 applic 05/06/19 22:00 Bactroban Ointment (For Decolonization) - NS 05/07/19 09:59 BID [facility] Potassium Phos/Sodium Phos 1 packet 05/06/19 14:00 05/06/19 13:49 Phos-Nak Packet - PO 1 packet TID [facility] Administration ASSESSMENT/PLAN: 58 y/o F with a significant PMH of NIDDM who presented to [facility] due to shortness of breath, chest pain, and palpitations after drinking 2 energy drinks and found to be in DKA. septic shock, UTI, bacteremia leukopenic now previosuly was leukocytosis, (wbc 4.4 today) but afebrile blood cultures and urine cultures, gram neg lactose fermenting bacilli pending speciation and sensitivity blood cx neg x 24 hr. follow continue Meropenem but d/c gentamycin as per ID BP stable d/c fluids as pt is tolerating oral intake and MAP is >65 DKA resolved Insulin gtt discontinued 05/03 levemir increased to 16 daily, insulin sliding scale per endo's recs. blood gluc were running high bgm monitoring F/E/N mag, phos and potassium were low. all repleted Monitor Electrolytes. replete as needed DVT ppx Lovenox Visit type - Emergency Visit Emergency Visit: Yes ED Registration Date: 05/01/19 Care time: The patient presented to the Emergency Department on the above date and was hospitalized for further evaluation of their emergent condition. - New Patient This patient is new to me today: No - Critical Care Critical Care patient: No - Discharge Referral Referred to [facility] Med P.C.: No ATTENDING PHYSICIAN STATEMENT I saw and evaluated the patient. I reviewed the resident's note and discussed the case with the resident. I agree with the resident's findings and plan as documented. SUBJECTIVE: OBJECTIVE: ASSESSMENT AND PLAN:
--- NOTE | 2019-05-06 16:11 | CONSULT ---
Consult - text type - Consultation Consultation Note: 58 y/o female seen and evaluated at bedside for routine diabetic check. Speaks mainly north korean with daughter. Was admitted for DKA and doing better and much more stable now. NO acute complaints in the feet. Denies any other pedal problems. O: Vasc: DP /4 PT 07/25, Temp gradient wnl, Cap fill time wnl Derm: no open lesions, no edema, no signs of infection, nail at normla length, thickened and discolored, no pain on palpation Neuro: unable to determine with patient. A: Diabetes type 1 dka onycho mycosis P: Evaluated and reviewed Stable diabetic Can follow up as outpatient for continued diabetic care and for nail treatment. Thank you for this consult.
[2019-05-06 18:07] LABS: BLOOD UREA NITROGEN 6.8 mg/dL (7-18); CALCIUM 7.7 mg/dL (8.5-10.1); CREATININE 0.3 mg/dL (0.55-1.3); POTASSIUM 3.9 mmol/L (3.5-5.1)
[2019-05-06] MEDS: CHLORHEXIDINE GLUCONATE 4% CLEANSER FOR DECOLONIZATION TP SCH (21:56)
[2019-05-06] MEDS ORDERED: MUPIROCIN 2% TOPICAL OINTMENT FOR DECOLONIZATION NS SCH (22:00)
[2019-05-07] MEDS ORDERED: DEXTROSE 5%-WATER 100 ML IVPB ONE ×3 (02:32→17:15)
[2019-05-07] MEDS ORDERED: MEROPENEM 1 GM VIAL (RESTRICTED TO ID) IVPB ONE ×3 (02:32→17:15)
[2019-05-07] MEDS: MEROPENEM 1 GM in DEXTROSE 5%-WATER 100 ML IVPB SCH ×3 (02:47→17:38)
[2019-05-07] MEDS: INSULIN (LEVEMIR) 100 UNITS/ML UNITS SQ SCH (06:39)
[2019-05-07] MEDS: NAPH,MB-DB/K PH,MBDB POWDER PACKET PO SCH ×3 (06:39→21:26)
[2019-05-07] MEDS: INSULIN SLIDING SCALE (NOVOLOG) 1 VIAL SQ SCH ×3 (06:40→17:38)
[2019-05-07 08:35] LABS: BASO % 0.7 % (0-2.0); EOS % 0.2 % (0-4.5); HEMOGLOBIN 12.4 GM/dL (10.7-15.3); LYMPH % 29.6 % (8-40); MCH 35.3 pg (25.7-33.7); MCHC 35.4 g/dl (32.0-36.0); MEAN CELL VOLUME 99.7 fl (80-96); MEAN PLT VOLUME 8.3 fl (7.5-11.1); NEUT % 56.5 % (42.8-82.8); PLATELET COUNT 242 K/MM3 (134-434); RBC 3.51 M/mm3 (3.60-5.2); RDW 13.1 % (11.6-15.6); WHITE BLOOD COUNT 4.2 K/mm3 (4.0-10.0)
[2019-05-07 09:01] LABS: BILIRUBIN,TOTAL 0.2 mg/dL (0.2-1); BLOOD UREA NITROGEN 5.3 mg/dL (7-18); CALCIUM 7.7 mg/dL (8.5-10.1); CREATININE 0.2 mg/dL (0.55-1.3); MAGNESIUM 1.9 mg/dL (1.8-2.4); PHOSPHOROUS 2.6 mg/dL (2.5-4.9); TOT PROT 5.2 g/dl (6.4-8.2)
--- NOTE | 2019-05-07 09:39 | PN ---
Progress Note (short form) - Note Progress Note: Awake and alert in NAD on RA. Denies CP or SOB. No acute events overnight. CXR: resolving congestion / fluid in the right fissure Intake & Output 05/04/19 05/05/19 05/06/19 05/07/19 23:59 23:59 23:59 23:59 Intake Total 4400 3867 2790 Output Total 400 500 Balance 4000 3367 2790 Weight 95 lb 1.6 oz 95 lb 98 lb Last Vital Signs Temp Pulse Resp BP Pulse Ox 98.3 F 81 18 104/59 L 96 05/07/19 05:50 05/07/19 05:50 05/07/19 05:50 05/07/19 05:50 05/06/19 21:00 Active Medications Acetaminophen (Ofirmev Injection -) 600 mg IVPB Q6H PRN PRN Reason: FEVER Chlorhexidine Gluconate (Hibiclens For Decolonization -) 1 applic TP HS [facility] Last Admin: 05/06/19 21:56 Dose: 1 applic Enoxaparin Sodium (Lovenox -) 40 mg SQ DAILY [facility] Meropenem 1 gm/ Dextrose 100 mls @ 200 mls/hr IVPB Q8H-IV [facility] Last Admin: 05/07/19 02:47 Dose: 200 mls/hr Insulin Aspart (Novolog Vial Sliding Scale -) 1 vial SQ TIDAC [facility]; Protocol Last Admin: 05/07/19 06:40 Dose: 6 units Insulin Detemir (Levemir Vial) 16 units SQ DAILY@0700 [facility] Last Admin: 05/07/19 06:39 Dose: 16 units Mupirocin (Bactroban Ointment (For Decolonization) -) 1 applic NS BID [facility] Stop: 05/07/19 09:59 Last Admin: 05/06/19 21:56 Dose: 1 applic Potassium Chloride (K-Dur -) 40 meq PO ONCE ONE Stop: 05/07/19 09:46 Potassium Phos/Sodium Phos (Phos-Nak Packet -) 1 packet PO TID [facility] Last Admin: 05/07/19 06:39 Dose: 1 packet Gen: NAD at rest Heart: RRR Lung: decreased breath sounds at the bases, basilar rhonchi Abd: soft, nontender Ext: no edema Intake & Output 10/14/19 05/05/19 05/06/19 05/07/19 23:59 23:59 23:59 23:59 Intake Total 4400 3867 2790 Output Total 400 500 Balance 4000 3367 2790 Weight 95 lb 1.6 oz 95 lb 98 lb Last Vital Signs Temp Pulse Resp BP Pulse Ox 98.3 F 81 18 104/59 L 96 05/07/19 05:50 05/07/19 05:50 05/07/19 05:50 05/07/19 05:50 05/06/19 21:00 Active Medications Acetaminophen (Ofirmev Injection -) 600 mg IVPB Q6H PRN PRN Reason: FEVER Chlorhexidine Gluconate (Hibiclens For Decolonization -) 1 applic TP HS [facility] Last Admin: 05/06/19 21:56 Dose: 1 applic Enoxaparin Sodium (Lovenox -) 40 mg SQ DAILY [facility] Meropenem 1 gm/ Dextrose 100 mls @ 200 mls/hr IVPB Q8H-IV [facility] Last Admin: 05/07/19 02:47 Dose: 200 mls/hr Insulin Aspart (Novolog Vial Sliding Scale -) 1 vial SQ TIDAC [facility]; Protocol Last Admin: 05/07/19 06:40 Dose: 6 units Insulin Detemir (Levemir Vial) 16 units SQ DAILY@0700 [facility] Last Admin: 05/07/19 06:39 Dose: 16 units Mupirocin (Bactroban Ointment (For Decolonization) -) 1 applic NS BID [facility] Stop: 05/07/19 09:59 Last Admin: 05/06/19 21:56 Dose: 1 applic Potassium Chloride (K-Dur -) 40 meq PO ONCE ONE Stop: 05/07/19 09:46 Potassium Phos/Sodium Phos (Phos-Nak Packet -) 1 packet PO TID [facility] Last Admin: 05/07/19 06:39 Dose: 1 packet ASSESSMENT AND PLAN: UTI Gram Negative Bacteremia Septic Shock DKA resolved - ABX Per ID - O2 to keep SpO2 >90% - monitor urine output, creatinine - DVT prophylaxis - OOB to chair and ambulate Dr Uriarte
[2019-05-07] MEDS ORDERED: POTASSIUM CHLORIDE TABS 20 MEQ TABLET.ER (FP) PO ONE (09:45)
[2019-05-07] MEDS: ENOXAPARIN NA (PORCINE) 40 MG/0.4 ML DISP.SYRIN SQ SCH (10:32)
--- NOTE | 2019-05-07 13:06 | PN ---
Progress Note, Physician History of Present Illness: stable doing well - Current Medication List Current Medications: Active Medications Acetaminophen (Ofirmev Injection -) 600 mg IVPB Q6H PRN PRN Reason: FEVER Chlorhexidine Gluconate (Hibiclens For Decolonization -) 1 applic TP HS [facility] Last Admin: 05/06/19 21:56 Dose: 1 applic Enoxaparin Sodium (Lovenox -) 40 mg SQ DAILY [facility] Last Admin: 05/07/19 10:32 Dose: 40 mg Meropenem 1 gm/ Dextrose 100 mls @ 200 mls/hr IVPB Q8H-IV [facility] Last Admin: 05/07/19 10:32 Dose: 200 mls/hr Insulin Aspart (Novolog Vial Sliding Scale -) 1 vial SQ TIDAC [facility]; Protocol Last Admin: 05/07/19 11:50 Dose: 6 units Insulin Detemir (Levemir Vial) 16 units SQ DAILY@0700 [facility] Last Admin: 05/07/19 06:39 Dose: 16 units Potassium Phos/Sodium Phos (Phos-Nak Packet -) 1 packet PO TID [facility] Last Admin: 05/07/19 06:39 Dose: 1 packet - Objective Vital Signs: Vital Signs Temperature 98.3 F 05/07/19 05:50 Pulse Rate 109 H 05/07/19 09:00 Respiratory Rate 18 05/07/19 09:00 Blood Pressure 100/60 05/07/19 09:00 O2 Sat by Pulse Oximetry (%) 96 05/07/19 09:00 Constitutional: Yes: No Distress, Calm Cardiovascular: Yes: Regular Rate and Rhythm Respiratory: Yes: Regular, CTA Bilaterally Gastrointestinal: Yes: Normal Bowel Sounds, Soft Musculoskeletal: Yes: WNL Extremities: Yes: WNL Neurological: Yes: Alert, Oriented Psychiatric: Yes: Alert, Oriented Labs: CBC, BMP 05/07/19 07:15 05/07/19 07:15 INR, PTT INR 1.08 (0.83-1.09) 05/02/19 06:38 Assessment/Plan 58 y.o. female with PMH of DM presented with c/o weakness, SOB, nausea, and dysuria Sepsis Gram Negative Bacteremia UTI DKA plan continue abx repeat blood cx negative close watch rest as per the team
--- NOTE | 2019-05-07 14:37 | PN ---
Progress Note (short form) - Note Progress Note: Feels good Denies any complaints Vital Signs Period Temp Pulse Resp BP Sys/Crow Pulse Ox Last 24 Hr 98.0 F-98.3 F 78-109 14- 100-107/59-70 96-96 PE: AOx3 Neck: Supple, No JVD HEENT: PERRL, EOMI Lungs: CTA CVs: s1S2 Abd: Benign Ext: No edema Neuro: No focal deficit CMP Sodium 139 mmol/L (136-145) 05/07/19 07:15 Potassium 3.0 mmol/L (3.5-5.1) L 05/07/19 07:15 Chloride 99 mmol/L (98-107) 05/07/19 07:15 Carbon Dioxide 32 mmol/L (21-32) 05/07/19 07:15 Anion Gap 8 MMOL/L (8-16) 05/07/19 07:15 BUN 5.3 mg/dL (7-18) L 05/07/19 07:15 Creatinine 0.2 mg/dL (0.55-1.3) L 05/07/19 07:15 Est GFR (CKD-EPI)AfAm 168.33 05/07/19 07:15 Est GFR (CKD-EPI)NonAf 145.23 05/07/19 07:15 POC Glucometer 234 UNITS (80-120) 05/07/19 11:21 Random Glucose 166 mg/dL (74-106) H 05/07/19 07:15 Hemoglobin A1c % 14.0 % (4.2-6.3) H 05/02/19 06:38 Serum Osmolality 268 mosm/kg (278-305) L 05/03/19 05:54 Lactic Acid 1.0 mmol/L (0.4-2.0) 05/02/19 22:00 Calcium 7.7 mg/dL (8.5-10.1) L 05/07/19 07:15 Phosphorus 2.6 mg/dL (2.5-4.9) 05/07/19 07:15 Magnesium 1.9 mg/dL (1.8-2.4) 05/07/19 07:15 Total Bilirubin 0.2 mg/dL (0.2-1) 05/07/19 07:15 GGT 16 U/L (5-85) 05/02/19 06:38 AST 33 U/L (15-37) 05/07/19 07:15 ALT 38 U/L (13-61) 05/07/19 07:15 Alkaline Phosphatase 113 U/L (45-117) 05/07/19 07:15 Creatine Kinase 22 U/L (26-192) L 05/01/19 20:40 Troponin I < 0.02 ng/ml (0.00-0.05) 05/01/19 20:40 B-Natriuretic Peptide 465.6 pg/ml (5-125) H 05/01/19 20:40 Total Protein 5.2 g/dl (6.4-8.2) L 05/07/19 07:15 Albumin 2.0 g/dl (3.4-5.0) L 05/07/19 07:15 Vitamin B12 > 6000 pg/ml (193-986) H 05/04/19 05:30 Serum Folate 11 ng/mL (3.1-17.5) 05/03/19 15:30 Beta-Hydroxybutyrate > 46.0 mg/dL (0.2-2.8) H 05/01/19 20:40 Current Medications Generic Name Dose Route Start Last Admin Trade Name Freq PRN Reason Stop Dose Admin Acetaminophen 600 mg 05/06/19 12:41 Ofirmev Injection - IVPB Q6H PRN FEVER Chlorhexidine Gluconate 1 applic 05/06/19 22:00 05/06/19 21:56 Hibiclens For Decolonization - TP 1 applic HS [facility] Administration Enoxaparin Sodium 40 mg 05/07/19 10:00 05/07/19 10:32 Lovenox - SQ 40 mg DAILY [facility] Administration Meropenem 1 gm/ Dextrose 100 mls @ 200 mls/hr 05/06/19 18:00 05/07/19 10:32 IVPB 200 mls/hr Q8H-IV [facility] Administration Insulin Aspart 1 vial 05/06/19 16:30 05/07/19 11:50 Novolog Vial Sliding Scale - SQ 6 units TIDAC [facility] Administration Protocol Insulin Detemir 16 units 05/07/19 07:00 05/07/19 06:39 Levemir Vial SQ 16 units DAILY@0700 [facility] Administration Potassium Phos/Sodium Phos 1 packet 05/06/19 14:00 05/07/19 06:39 Phos-Nak Packet - PO 1 packet TID [facility] Administration AP: DKA T2DM Sepsis/UTI Acidosis resolved ON Levemir 16 units daily with Novolog coverage Adjust Insulin dose as necessary. Electrolyte replacement as necessary O2 as needed Abx as per ID
--- NOTE | 2019-05-07 17:06 | PN ---
Teaching Attending Note Name of Resident: Wilder Cesar ATTENDING PHYSICIAN STATEMENT I saw and evaluated the patient. I reviewed the resident's note and discussed the case with the resident. I agree with the resident's findings and plan as documented. SUBJECTIVE: no fever or chills. No abd pain, tolerated her diet OBJECTIVE: NAd Cv : RRR Lungs: CTAB Abd: soft, NT, ND , NL BS Ext : No edema ASSESSMENT AND PLAN: Patient is 58yo lady with PMHx history of non-insulin dependent diabetes mellitus who presented with abd pain and SOB and was found to have DKA and sepsis 1- DKA: resolved 2- E coli bacteremia , source is likely complicated UTI, less likely colitis 3- electrolytes abnormalities : hypokalemia, hypomagnesemia, and hypophosphatemia 4- Old compression Fx plan : - sugar improved , cont 16 units of levemir. - cont SSI. - cont meropenem. - blood cx neg x 48 hr. follow - replete K - Lovenox
[2019-05-07] MEDS: CHLORHEXIDINE GLUCONATE 4% CLEANSER FOR DECOLONIZATION TP SCH (21:26)
[2019-05-08] MEDS ORDERED: MEROPENEM 1 GM VIAL (RESTRICTED TO ID) IVPB ONE ×3 (01:57→16:45)
[2019-05-08] MEDS ORDERED: DEXTROSE 5%-WATER 100 ML IVPB ONE ×3 (01:57→16:45)
[2019-05-08] MEDS: MEROPENEM 1 GM in DEXTROSE 5%-WATER 100 ML IVPB SCH ×3 (02:01→17:32)
[2019-05-08] MEDS: NAPH,MB-DB/K PH,MBDB POWDER PACKET PO SCH ×3 (06:36→21:48)
[2019-05-08] MEDS: INSULIN SLIDING SCALE (NOVOLOG) 1 VIAL SQ SCH ×3 (06:36→16:44)
[2019-05-08] MEDS: INSULIN (LEVEMIR) 100 UNITS/ML UNITS SQ SCH (06:36)
[2019-05-08 08:22] LABS: BASO % 0.6 % (0-2.0); EOS % 0.3 % (0-4.5); HEMATOCRIT 33.1 % (32.4-45.2); HEMOGLOBIN 11.7 GM/dL (10.7-15.3); LYMPH % 28.9 % (8-40); MCH 35.5 pg (25.7-33.7); MCHC 35.4 g/dl (32.0-36.0); MEAN CELL VOLUME 100.2 fl (80-96); MEAN PLT VOLUME 8.6 fl (7.5-11.1); MONO % 14.2 % (3.8-10.2); PLATELET COUNT 305 K/MM3 (134-434); RDW 13.4 % (11.6-15.6); WHITE BLOOD COUNT 4.6 K/mm3 (4.0-10.0)
[2019-05-08 09:13] LABS: BLOOD UREA NITROGEN 9.7 mg/dL (7-18); CALCIUM 7.9 mg/dL (8.5-10.1); CREATININE 0.3 mg/dL (0.55-1.3); PHOSPHOROUS 3.2 mg/dL (2.5-4.9); POTASSIUM 3.9 mmol/L (3.5-5.1)
[2019-05-08] MEDS ORDERED: INSULIN (LEVEMIR) 100 UNITS/ML UNITS SQ ONE (10:15)
[2019-05-08] MEDS: ENOXAPARIN NA (PORCINE) 40 MG/0.4 ML DISP.SYRIN SQ SCH (10:20)
[2019-05-08] MEDS ORDERED: INSULIN (NOVOLOG) ASPART 100 UNITS/ML 10ML VIAL ONE (11:34)
--- NOTE | 2019-05-08 13:02 | PN ---
Progress Note, Physician History of Present Illness: stable doing well no issues - Current Medication List Current Medications: Active Medications Acetaminophen (Ofirmev Injection -) 600 mg IVPB Q6H PRN PRN Reason: FEVER Chlorhexidine Gluconate (Hibiclens For Decolonization -) 1 applic TP HS [facility] Last Admin: 05/07/19 21:26 Dose: 1 applic Enoxaparin Sodium (Lovenox -) 40 mg SQ DAILY [facility] Last Admin: 05/08/19 10:20 Dose: 40 mg Meropenem 1 gm/ Dextrose 100 mls @ 200 mls/hr IVPB Q8H-IV [facility] Last Admin: 05/08/19 10:17 Dose: 200 mls/hr Insulin Aspart (Novolog Vial Sliding Scale -) 1 vial SQ TIDAC [facility]; Protocol Last Admin: 05/08/19 11:39 Dose: 6 units Insulin Detemir (Levemir Vial) 20 units SQ DAILY@0700 [facility] Potassium Phos/Sodium Phos (Phos-Nak Packet -) 1 packet PO TID [facility] Last Admin: 05/08/19 06:36 Dose: 1 packet - Objective Vital Signs: Vital Signs Temperature 98.4 F 05/08/19 06:00 Pulse Rate 86 05/08/19 10:00 Respiratory Rate 18 05/08/19 10:00 Blood Pressure 90/60 05/08/19 10:00 O2 Sat by Pulse Oximetry (%) 96 05/07/19 21:00 Constitutional: Yes: No Distress, Calm Cardiovascular: Yes: S1, S2 Respiratory: Yes: Regular, CTA Bilaterally Gastrointestinal: Yes: Normal Bowel Sounds, Soft Musculoskeletal: Yes: WNL Extremities: Yes: WNL Neurological: Yes: Alert, Oriented Psychiatric: Yes: Alert, Oriented Labs: CBC, BMP 05/08/19 06:40 05/08/19 06:40 INR, PTT INR 1.08 (0.83-1.09) 05/02/19 06:38 Assessment/Plan 58 y.o. female with PMH of DM presented with c/o weakness, SOB, nausea, and dysuria Sepsis Gram Negative Bacteremia UTI DKA plan continue abx repeat blood cx negative
--- NOTE | 2019-05-08 18:30 | PN ---
Physical Exam: SUBJECTIVE: Patient seen and examined. pt endorsed no complaints. no sob, pain or fever/chills. OBJECTIVE: Vital Signs Period Temp Pulse Resp BP Sys/Crow Pulse Ox Last 24 Hr 98.2 F-98.4 F 78-86 18-20 90-134/60-79 96 GENERAL: The patient is awake, alert, and fully oriented, in no acute distress. HEAD: Normal with no signs of trauma. EYES: sclera anicteric, conjunctiva clear. No ptosis. ENT: oropharynx clear without exudates, moist mucous membranes. NECK: Trachea midline, full range of motion, supple. LUNGS: Breath sounds equal, clear to auscultation bilaterally, no wheezes, no crackles, no accessory muscle use. HEART: Regular rate and rhythm, S1, S2 without murmur, rub or gallop. ABDOMEN: Soft, nontender, nondistended, normoactive bowel sounds, no guarding, no rebound, no hepatosplenomegaly, no masses. EXTREMITIES: 2+ pulses, warm, well-perfused, no edema. PSYCH: Normal mood, normal affect. SKIN: Warm, dry, normal turgor, no rashes or lesions noted Laboratory Results - last 24 hr 05/08/19 05/08/19 05/08/19 06:35 06:40 06:40 WBC 4.6 RBC 3.30 L Hgb 11.7 Hct 33.1 MCV 100.2 H MCH 35.5 H MCHC 35.4 RDW 13.4 Plt Count 305 D MPV 8.6 Absolute Neuts (auto) 2.6 Neutrophils % 56.0 Lymphocytes % 28.9 Monocytes % 14.2 H Eosinophils % 0.3 Basophils % 0.6 Nucleated RBC % 0 Sodium 134 L Potassium 3.9 Chloride 95 L Carbon Dioxide 31 Anion Gap 8 BUN 9.7 Creatinine 0.3 L Est GFR (CKD-EPI)AfAm 147.31 Est GFR (CKD-EPI)NonAf 127.10 POC Glucometer 339 Random Glucose 294 H Calcium 7.9 L Phosphorus 3.2 Magnesium 2.0 05/08/19 05/08/19 11:25 16:16 WBC RBC Hgb Hct MCV MCH MCHC RDW Plt Count MPV Absolute Neuts (auto) Neutrophils % Lymphocytes % Monocytes % Eosinophils % Basophils % Nucleated RBC % Sodium Potassium Chloride Carbon Dioxide Anion Gap BUN Creatinine Est GFR (CKD-EPI)AfAm Est GFR (CKD-EPI)NonAf POC Glucometer 238 82 Random Glucose Calcium Phosphorus Magnesium Active Medications Generic Name Dose Route Start Last Admin Trade Name Janis PRN Reason Stop Dose Admin Acetaminophen 600 mg 05/06/19 12:41 Ofirmev Injection - IVPB Q6H PRN FEVER Chlorhexidine Gluconate 1 applic 05/06/19 22:00 05/07/19 21:26 Hibiclens For Decolonization - TP 1 applic HS [facility] Administration Enoxaparin Sodium 40 mg 05/07/19 10:00 05/08/19 10:20 Lovenox - SQ 40 mg DAILY [facility] Administration Meropenem 1 gm/ Dextrose 100 mls @ 200 mls/hr 05/06/19 18:00 05/08/19 17:32 IVPB 200 mls/hr Q8H-IV [facility] Administration Insulin Aspart 1 vial 05/06/19 16:30 05/08/19 16:44 Novolog Vial Sliding Scale - SQ Not Given TIDAC [facility] Protocol Insulin Detemir 20 units 05/09/19 07:00 Levemir Vial SQ DAILY@0700 [facility] Potassium Phos/Sodium Phos 1 packet 05/06/19 14:00 05/08/19 14:29 Phos-Nak Packet - PO 1 packet TID [facility] Administration ASSESSMENT/PLAN: 58 y/o F with a significant PMH of NIDDM who presented to [facility] due to shortness of breath, chest pain, and palpitations after drinking 2 energy drinks and found to be in DKA. septic shock, UTI, bacteremia leukopenic now previosuly was leukocytosis, (wbc 4.6 today) but afebrile blood cultures and urine cultures, E coli gram neg lactose fermenting bacilli repeat blood cx neg x 72 hr. follow up to day 5 continue Meropenem but d/c gentamycin as per ID BP stable d/c fluids as pt is tolerating oral intake and MAP is >65 DKA resolved. but BG continue to run high at 339 highest this am Insulin gtt discontinued 05/03 levemir increased to 20 daily, insulin sliding scale per endo's recs. bgm monitoring F/E/N Monitor Electrolytes. replete as needed DVT ppx Lovenox Visit type - Emergency Visit Emergency Visit: Yes ED Registration Date: 05/01/19 Care time: The patient presented to the Emergency Department on the above date and was hospitalized for further evaluation of their emergent condition. - New Patient This patient is new to me today: No - Critical Care Critical Care patient: No - Discharge Referral Referred to [facility] Med P.C.: No ATTENDING PHYSICIAN STATEMENT I saw and evaluated the patient. I reviewed the resident's note and discussed the case with the resident. I agree with the resident's findings and plan as documented. SUBJECTIVE: OBJECTIVE: ASSESSMENT AND PLAN:
--- NOTE | 2019-05-08 19:36 | PN ---
Teaching Attending Note Name of Resident: Emma Mari ATTENDING PHYSICIAN STATEMENT I saw and evaluated the patient. I reviewed the resident's note and discussed the case with the resident. I agree with the resident's findings and plan as documented. SUBJECTIVE: transverse abdominal muscle surgeon phone [phone] , Salomon was used No pain or diarrhea or SOB or CP . eating well and can't wait to go home OBJECTIVE: NAd Cv: RRR Lungs: CTAB Abd: soft, NT, ND , NL BS Ext : No edema ASSESSMENT AND PLAN: Patient is 58yo lady with PMHx history of non-insulin dependent diabetes mellitus who presented with abd pain and SOB and was found to have DKA and sepsis 1- DKA: resolved 2- E coli bacteremia , source is likely complicated UTI, less likely colitis 3- Electrolytes abnormalities : resolved 4- Old compression Fx. Plan: - Increase levemir to 20 units - cont SSI. - cont meropenem. day 3 from 1st neg blood cx - need 5 days on IV abx after 1st neg cx befoer starting po regimen - Lovenox - patient has no insurance. insulin will be challenging. multiple pharmacies called to get a quote for NPH, lispro, aspart, and humullin . will see if patient can afford . will ask social work to help
[2019-05-08] MEDS: CHLORHEXIDINE GLUCONATE 4% CLEANSER FOR DECOLONIZATION TP SCH (21:48)
[2019-05-09] MEDS ORDERED: MEROPENEM 1 GM VIAL (RESTRICTED TO ID) IVPB ONE ×4 (01:13→17:03)
[2019-05-09] MEDS ORDERED: DEXTROSE 5%-WATER 100 ML IVPB ONE ×3 (01:13→09:28)
[2019-05-09] MEDS: MEROPENEM 1 GM in DEXTROSE 5%-WATER 100 ML IVPB SCH ×2 (01:20→09:53)
[2019-05-09] MEDS: NAPH,MB-DB/K PH,MBDB POWDER PACKET PO SCH ×3 (06:20→21:25)
[2019-05-09] MEDS: INSULIN SLIDING SCALE (NOVOLOG) 1 VIAL SQ SCH ×3 (06:24→16:40)
[2019-05-09] MEDS ORDERED: INSULIN (LEVEMIR) 100 UNITS/ML UNITS SQ SCH (07:00)
[2019-05-09 08:43] LABS: BLOOD UREA NITROGEN 8.3 mg/dL (7-18); CALCIUM 7.9 mg/dL (8.5-10.1); CREATININE 0.4 mg/dL (0.55-1.3); POTASSIUM 3.7 mmol/L (3.5-5.1)
[2019-05-09 08:48] LABS: BASO % 0.3 % (0-2.0); HEMATOCRIT 34.3 % (32.4-45.2); HEMOGLOBIN 12.3 GM/dL (10.7-15.3); MCH 35.4 pg (25.7-33.7); MCHC 35.7 g/dl (32.0-36.0); MEAN CELL VOLUME 99.2 fl (80-96); MEAN PLT VOLUME 8.1 fl (7.5-11.1); MONO % 5.5 % (3.8-10.2); NEUT % 86.2 % (42.8-82.8); PLATELET COUNT 368 K/MM3 (134-434); RBC 3.46 M/mm3 (3.60-5.2); RDW 13.3 % (11.6-15.6); WHITE BLOOD COUNT 12.7 K/mm3 (4.0-10.0)
--- NOTE | 2019-05-09 09:28 | PN ---
Progress Note (short form) - Note Progress Note: Patient seen by Armaan Price Apprentice Stylist. Consult me as needed. Read and appreciated note. Spoke with Dr. Price. He consulted on patient not realizing that we had been consulted as well.
[2019-05-09] MEDS: ENOXAPARIN NA (PORCINE) 40 MG/0.4 ML DISP.SYRIN SQ SCH (09:53)
--- NOTE | 2019-05-09 10:46 | PN ---
Progress Note, Physician History of Present Illness: stable doing well no issues - Current Medication List Current Medications: Active Medications Acetaminophen (Ofirmev Injection -) 600 mg IVPB Q6H PRN PRN Reason: FEVER Enoxaparin Sodium (Lovenox -) 40 mg SQ DAILY [facility] Last Admin: 05/09/19 09:53 Dose: 40 mg Meropenem 1 gm/ Dextrose 100 mls @ 200 mls/hr IVPB Q8H-IV [facility] Last Admin: 05/09/19 09:53 Dose: 200 mls/hr Insulin Aspart (Novolog Vial Sliding Scale -) 1 vial SQ TIDAC [facility]; Protocol Last Admin: 05/09/19 06:24 Dose: 6 units Insulin Detemir (Levemir Vial) 20 units SQ DAILY@0700 [facility] Last Admin: 05/09/19 06:20 Dose: 20 unit Potassium Phos/Sodium Phos (Phos-Nak Packet -) 1 packet PO TID [facility] Last Admin: 05/09/19 06:20 Dose: 1 packet - Objective Vital Signs: Vital Signs Temperature 98.5 F 05/09/19 08:56 Pulse Rate 102 H 05/09/19 08:56 Respiratory Rate 05/09/19 08:57 Blood Pressure 91/53 L 05/09/19 08:56 O2 Sat by Pulse Oximetry (%) 92 L 05/09/19 08:57 Constitutional: Yes: No Distress, Calm Cardiovascular: Yes: S1, S2 Respiratory: Yes: Regular, CTA Bilaterally Gastrointestinal: Yes: Normal Bowel Sounds, Soft Musculoskeletal: Yes: WNL Extremities: Yes: Other Neurological: Yes: Alert, Oriented Psychiatric: Yes: Alert, Oriented Labs: CBC, BMP 05/09/19 07:05 05/09/19 07:05 INR, PTT INR 1.08 (0.83-1.09) 05/02/19 06:38 Assessment/Plan 58 y.o. female with PMH of DM presented with c/o weakness, SOB, nausea, and dysuria Sepsis Gram Negative Bacteremia UTI DKA plan continue abx repeat blood cx negative can stop abx after today
--- NOTE | 2019-05-09 14:18 | PN ---
Physical Exam: SUBJECTIVE: Patient seen and examined. Pt offered no complaints, no fevers, abdminal pain, sob OBJECTIVE: Vital Signs Period Temp Pulse Resp BP Sys/Crow Pulse Ox Last 24 Hr 98.5 F-99.7 F 84-105 18-21 91-133/53-78 92-96 GENERAL: The patient is awake, alert, and fully oriented, in no acute distress. HEAD: Normal with no signs of trauma. EYES: sclera anicteric, conjunctiva clear. No ptosis. ENT: oropharynx clear without exudates, moist mucous membranes. NECK: Trachea midline, full range of motion, supple. LUNGS: Breath sounds equal, clear to auscultation bilaterally, no wheezes, no crackles, no accessory muscle use. HEART: Regular rate and rhythm, S1, S2 without murmur, rub or gallop. ABDOMEN: Soft, nontender, nondistended, normoactive bowel sounds, no guarding, no rebound, no hepatosplenomegaly, no masses. EXTREMITIES: 2+ pulses, warm, well-perfused, no edema. PSYCH: Normal mood, normal affect. SKIN: Warm, dry, normal turgor, no rashes or lesions noted Laboratory Results - last 24 hr 05/08/19 05/09/19 05/09/19 16:16 06:24 07:05 WBC 12.7 H RBC 3.46 L Hgb 12.3 Hct 34.3 MCV 99.2 H MCH 35.4 H MCHC 35.7 RDW 13.3 Plt Count 368 D MPV 8.1 Absolute Neuts (auto) 10.9 H Neutrophils % 86.2 H D Lymphocytes % 8.0 D Monocytes % 5.5 Eosinophils % 0.0 D Basophils % 0.3 Nucleated RBC % 0 Sodium Potassium Chloride Carbon Dioxide Anion Gap BUN Creatinine Est GFR (CKD-EPI)AfAm Est GFR (CKD-EPI)NonAf POC Glucometer 82 223 Random Glucose Calcium 05/09/19 05/09/19 07:05 11:33 WBC RBC Hgb Hct MCV MCH MCHC RDW Plt Count MPV Absolute Neuts (auto) Neutrophils % Lymphocytes % Monocytes % Eosinophils % Basophils % Nucleated RBC % Sodium 136 Potassium 3.7 Chloride 95 L Carbon Dioxide 33 H Anion Gap 8 BUN 8.3 Creatinine 0.4 L Est GFR (CKD-EPI)AfAm 134.00 Est GFR (CKD-EPI)NonAf 115.62 POC Glucometer 157 Random Glucose 218 H Calcium 7.9 L Active Medications Generic Name Dose Route Start Last Admin Trade Name Janis PRN Reason Stop Dose Admin Acetaminophen 600 mg 05/06/19 12:41 Ofirmev Injection - IVPB Q6H PRN FEVER Enoxaparin Sodium 40 mg 05/07/19 10:00 05/09/19 09:53 Lovenox - SQ 40 mg DAILY [facility] Administration Meropenem 1 gm/ Sodium 100 mls @ 200 mls/hr 05/09/19 18:00 Chloride IVPB Q8H-IV [facility] Insulin Aspart 1 vial 05/06/19 16:30 05/09/19 11:34 Novolog Vial Sliding Scale - SQ 4 units TIDAC [facility] Administration Protocol Insulin Detemir 20 units 05/09/19 07:00 05/09/19 06:20 Levemir Vial SQ 20 unit DAILY@0700 [facility] Administration Potassium Phos/Sodium Phos 1 packet 05/06/19 14:00 05/09/19 06:20 Phos-Nak Packet - PO 1 packet TID [facility] Administration ASSESSMENT/PLAN: 58 y/o F with a significant PMH of NIDDM who presented to [facility] due to shortness of breath, chest pain, and palpitations after drinking 2 energy drinks and found to be in DKA. septic 2/2 UTI, bacteremia WBC at 12.7 but afebrile blood cultures and urine cultures, E coli gram neg lactose fermenting bacilli repeat blood cx neg x 96 hr. follow up to day 5 continue Meropenem but d/c gentamycin as per ID until tomorrow BP stable d/c fluids as pt is tolerating oral intake and MAP is >65 DKA resolved. but BG continue to run high at 218 Insulin gtt discontinued 05/03 pt was receiving her abx in dextrose. spoke with pharmacy and switched to NS for meropenem. bgm monitoring levemir increased to 20 daily, insulin sliding scale per endo's recs. if blood glucose improve will decrease levemir to 16 spoke with family abt diabetic regimen o/p they will do their best to afford as pt doesnt have insurance. F/E/N Monitor Electrolytes. replete as needed DVT ppx Lovenox Visit type - Emergency Visit Emergency Visit: Yes ED Registration Date: 10/11/19 Care time: The patient presented to the Emergency Department on the above date and was hospitalized for further evaluation of their emergent condition. - New Patient This patient is new to me today: No - Critical Care Critical Care patient: No - Discharge Referral Referred to [facility] Med P.C.: No ATTENDING PHYSICIAN STATEMENT I saw and evaluated the patient. I reviewed the resident's note and discussed the case with the resident. I agree with the resident's findings and plan as documented. SUBJECTIVE: OBJECTIVE: ASSESSMENT AND PLAN:
--- NOTE | 2019-05-09 16:51 | PN ---
Teaching Attending Note Name of Resident: Emma Mari ATTENDING PHYSICIAN STATEMENT I saw and evaluated the patient. I reviewed the resident's note and discussed the case with the resident. I agree with the resident's findings and plan as documented. SUBJECTIVE: No fever or chills. no TALBERT. No Abd pain. Radial Drill Press Set Up Operator Lloyd [id number] was used OBJECTIVE: NAD. Cv: RRR Lungs: CTAB Abd: soft, NT, ND, NL BS Ext: No edema ASSESSMENT AND PLAN: Patient is 58yo lady with PMHx history of non-insulin dependent diabetes mellitus who presented with abd pain and SOB and was found to have DKA and sepsis 1- DKA: resolved 2- E coli bacteremia, source is likely complicated UTI, less likely colitis 3- Electrolytes abnormalities: resolved 4- Old compression Fx. Plan: - Cont Levemir at 20 - cont SSI. - white count is elevated today but will not change anything as there is no systemic signs of active infection - cont meropenem. day 4 from 1st Neg blood cx - Lovenox - patient has no insurance and can't afford expensive insulin. her son might be able to pay up to 180 $ per month . ( Humulin N). Will ask Endo for any avise in this situation .
[2019-05-09] MEDS ORDERED: SODIUM CHLORIDE 100 ML IVPB ONE (17:03)
[2019-05-09] MEDS: MEROPENEM 1 GM in SODIUM CHLORIDE 100 ML IVPB SCH (17:08)
[2019-05-09] MEDS ORDERED: INSULIN SLIDING SCALE (NOVOLOG) 1 VIAL SQ SCH (18:40)
[2019-05-10] MEDS ORDERED: MEROPENEM 1 GM VIAL (RESTRICTED TO ID) IVPB ONE ×3 (00:48→17:26)
[2019-05-10] MEDS ORDERED: SODIUM CHLORIDE 100 ML IVPB ONE ×3 (00:49→17:27)
[2019-05-10] MEDS: MEROPENEM 1 GM in SODIUM CHLORIDE 100 ML IVPB SCH ×3 (01:07→17:31)
[2019-05-10] MEDS: NAPH,MB-DB/K PH,MBDB POWDER PACKET PO SCH ×2 (06:01→14:16)
[2019-05-10] MEDS: INSULIN (NOVOLOG MIX 70/30) 100 UNITS/ML MDV SQ SCH ×2 (06:01→17:12)
[2019-05-10 07:33] LABS: BASO % 0.5 % (0-2.0); EOS % 0.1 % (0-4.5); HEMATOCRIT 32.3 % (32.4-45.2); HEMOGLOBIN 11.6 GM/dL (10.7-15.3); LYMPH % 22.9 % (8-40); MCH 35.9 pg (25.7-33.7); MCHC 35.7 g/dl (32.0-36.0); MEAN CELL VOLUME 100.5 fl (80-96); MEAN PLT VOLUME 7.8 fl (7.5-11.1); MONO % 9.9 % (3.8-10.2); NEUT % 66.6 % (42.8-82.8); PLATELET COUNT 392 K/MM3 (134-434); RBC 3.22 M/mm3 (3.60-5.2); RDW 13.5 % (11.6-15.6); WHITE BLOOD COUNT 6.9 K/mm3 (4.0-10.0)
[2019-05-10 07:52] LABS: BLOOD UREA NITROGEN 9.6 mg/dL (7-18); CALCIUM 8.2 mg/dL (8.5-10.1); CREATININE 0.3 mg/dL (0.55-1.3)
[2019-05-10] MEDS: ENOXAPARIN NA (PORCINE) 40 MG/0.4 ML DISP.SYRIN SQ SCH (09:16)
--- NOTE | 2019-05-10 10:38 | PN ---
Progress Note, Physician History of Present Illness: stable no new issues - Current Medication List Current Medications: Active Medications Acetaminophen (Ofirmev Injection -) 600 mg IVPB Q6H PRN PRN Reason: FEVER Enoxaparin Sodium (Lovenox -) 40 mg SQ DAILY [facility] Last Admin: 05/10/19 09:16 Dose: 40 mg Meropenem 1 gm/ Sodium (Chloride) 100 mls @ 200 mls/hr IVPB Q8H-IV [facility] Last Admin: 05/10/19 09:15 Dose: 200 mls/hr Insulin Aspart (Novolog Mix 70/30 Vial) 14 units SQ BIDAC [facility] Last Admin: 05/10/19 06:01 Dose: 14 unit Insulin Aspart (Novolog Vial Sliding Scale -) 1 vial SQ TIDAC [facility]; Protocol Last Admin: 05/10/19 06:01 Dose: 4 unit Potassium Phos/Sodium Phos (Phos-Nak Packet -) 1 packet PO TID [facility] Last Admin: 05/10/19 06:01 Dose: 1 packet - Objective Vital Signs: Vital Signs Temperature 99.6 F 05/09/19 20:48 Pulse Rate 93 H 05/09/19 20:48 Respiratory Rate 18 05/09/19 20:48 Blood Pressure 101/63 05/09/19 20:48 O2 Sat by Pulse Oximetry (%) 94 L 05/09/19 20:47 Constitutional: Yes: No Distress, Calm Cardiovascular: Yes: S1, S2 Respiratory: Yes: Regular, CTA Bilaterally Gastrointestinal: Yes: Normal Bowel Sounds, Soft Musculoskeletal: Yes: WNL Extremities: Yes: WNL Neurological: Yes: Alert, Oriented Psychiatric: Yes: Alert, Oriented Labs: CBC, BMP 05/10/19 06:10 05/10/19 06:10 INR, PTT INR 1.08 (0.83-1.09) 05/02/19 06:38 Assessment/Plan 58 y.o. female with PMH of DM presented with c/o weakness, SOB, nausea, and dysuria Sepsis Gram Negative Bacteremia UTI DKA plan continue abx repeat blood cx negative can stop abx
--- NOTE | 2019-05-10 10:43 | PN ---
Progress Note (short form) - Note Progress Note: Feels good Denies any complaints Son at bedside Vital Signs Period Temp Pulse Resp BP Sys/Crow Pulse Ox Last 24 Hr 98.5 F-99.6 F 93-109 18-18 98-102/54-64 94 PE: AOx3 Neck: Supple, No JVD HEENT: PERRL, EOMI Lungs: CTA CVs: s1S2 Abd: Benign Ext: No edema Neuro: No focal deficit CMP Sodium 137 mmol/L (136-145) 05/10/19 06:10 Potassium 4.0 mmol/L (3.5-5.1) 05/10/19 06:10 Chloride 98 mmol/L (98-107) 05/10/19 06:10 Carbon Dioxide 31 mmol/L (21-32) 05/10/19 06:10 Anion Gap 9 MMOL/L (8-16) 05/10/19 06:10 BUN 9.6 mg/dL (7-18) 05/10/19 06:10 Creatinine 0.3 mg/dL (0.55-1.3) L 05/10/19 06:10 Est GFR (CKD-EPI)AfAm 147.31 05/10/19 06:10 Est GFR (CKD-EPI)NonAf 127.10 05/10/19 06:10 POC Glucometer 250 UNITS (80-120) 05/10/19 05:42 Random Glucose 256 mg/dL (74-106) H 05/10/19 06:10 Hemoglobin A1c % 14.0 % (4.2-6.3) H 05/02/19 06:38 Serum Osmolality 268 mosm/kg (278-305) L 05/03/19 05:54 Lactic Acid 1.0 mmol/L (0.4-2.0) 05/02/19 22:00 Calcium 8.2 mg/dL (8.5-10.1) L 05/10/19 06:10 Phosphorus 3.2 mg/dL (2.5-4.9) 05/08/19 06:40 Magnesium 2.0 mg/dL (1.8-2.4) 05/08/19 06:40 Total Bilirubin 0.2 mg/dL (0.2-1) 05/07/19 07:15 GGT 16 U/L (5-85) 05/02/19 06:38 AST 33 U/L (15-37) 05/07/19 07:15 ALT 38 U/L (13-61) 05/07/19 07:15 Alkaline Phosphatase 113 U/L (45-117) 05/07/19 07:15 Creatine Kinase 22 U/L (26-192) L 05/01/19 20:40 Troponin I < 0.02 ng/ml (0.00-0.05) 05/01/19 20:40 B-Natriuretic Peptide 465.6 pg/ml (5-125) H 05/01/19 20:40 Total Protein 5.2 g/dl (6.4-8.2) L 05/07/19 07:15 Albumin 2.0 g/dl (3.4-5.0) L 05/07/19 07:15 Vitamin B12 > 6000 pg/ml (193-986) H 05/04/19 05:30 Serum Folate 11 ng/mL (3.1-17.5) 05/03/19 15:30 Beta-Hydroxybutyrate > 46.0 mg/dL (0.2-2.8) H 05/01/19 20:40 Current Medications Generic Name Dose Route Start Last Admin Trade Name Freq PRN Reason Stop Dose Admin Acetaminophen 600 mg 05/06/19 12:41 Ofirmev Injection - IVPB Q6H PRN FEVER Enoxaparin Sodium 40 mg 05/07/19 10:00 05/10/19 09:16 Lovenox - SQ 40 mg DAILY [facility] Administration Meropenem 1 gm/ Sodium 100 mls @ 200 mls/hr 05/09/19 18:00 05/10/19 09:15 Chloride IVPB 200 mls/hr Q8H-IV [facility] Administration Insulin Aspart 14 units 05/10/19 07:00 05/10/19 06:01 Novolog Mix 70/30 Vial SQ 14 unit BIDAC [facility] Administration Insulin Aspart 1 vial 05/09/19 18:40 05/10/19 06:01 Novolog Vial Sliding Scale - SQ 4 unit TIDAC [facility] Administration Protocol Potassium Phos/Sodium Phos 1 packet 05/06/19 14:00 05/10/19 06:01 Phos-Nak Packet - PO 1 packet TID [facility] Administration AP: DKA T2DM Sepsis/UTI Acidosis resolved ON NOvolog 70/30 14 BID Decrease Novolog coverage Adjust Insulin dose as necessary. Electrolyte replacement as necessary O2 as needed Abx as per ID Teach pt to self inject and self monitor blood glucose. Pt needs to go home on Insulin as she just had an episode of DKA. There is risk of recurrance of DKA if she is taken off the Insulin. Pt should f/u with her MD as outpt. Same discussed with pt's done at bedside
[2019-05-10] MEDS: INSULIN SLIDING SCALE (NOVOLOG) 1 VIAL SQ SCH ×2 (11:41→17:11)
--- NOTE | 2019-05-10 16:07 | DS ---
Physical Examination Vital Signs: Vital Signs Temperature 98.0 F 05/10/19 10:00 Pulse Rate 76 05/10/19 10:00 Respiratory Rate 18 05/10/19 10:00 Blood Pressure 99/61 05/10/19 10:00 O2 Sat by Pulse Oximetry (%) 98 05/10/19 09:00 Findings/Remarks: no pain or fever or chills NAD, CV: RRR Legs : no edema VS reviewed. Labs: CBC, BMP 05/10/19 06:10 05/10/19 06:10 Discharge Summary Problems reviewed: Yes Reason For Visit: DIABETIC KETOACIDOSIS Current Active Problems Bacteremia (Acute) DKA (diabetic ketoacidoses) (Acute) UTI (urinary tract infection) (Acute) Weakness (Acute) Hospital Course: Dc diagnoses: 1- DKA: resolved 2- E coli bacteremia, source is likely complicated UTI, less likely colitis 3- Electrolytes abnormalities: resolved 4- Old compression Fx. Patient is 58yo lady with PMHx history of non-insulin dependent diabetes mellitus who presented with abd pain and SOB and was found to have DKA and sepsis -she was diagnosed with DKA and she was treated wit insulin gtt. she then was placed on Sq insulin. lantus 20 units controlled her but she has no insurance and after a prolonged discussion with her today ( diplomatic interpreter Aniya# [id number]), she stated she can't afford to pay for insulin, here or in her country ( returning on 06/07). she was told and understands that treating her with no insulin can not prevent DKA and this can be dangerous and lead to . case was d/w Maylin Smiley , who advised metformin and glipizide 5 mg bid. she was sent on this regimen ( she uses metformin 850 TID at home and has her pills with her ) . she was educated about sx of hypoglycemia and action plan ) - she was found to have sepsis with hypotension . Urine and blood cx grew E coli and she was treated with Abx until she celared her blood. today is day 5 of abx after first neg blood cx. Ct of abdomen showed mesentric edema and edema in colon wall, still sepsis was thought to be due to UTI. any way it was treated. DC home. d/w her extensively. she was provided [facility] number for f/u . time spent 55 min Condition: Improved - Instructions Diet, Activity, Other Instructions: You were treated for DKA and bacteremia from a urinary tract infection. - diabetes is a serious problem and need treatment or can lead to . I am sending you on diabetes pills as you can not afford the insulin . Pills might not guarantee avoidance of DKA, so when you return to your country , please ask your doctor to place you on insulin. - for now: you will take metformin 850 mg three times a day as you were doing before. also, take glipizide 5 mg twice a day - check your sugar three times before each meal and keep a log. - if your sugar is > 400 then come back to ER or call your doctor - if sugar < 70 do not take the glipizide, and drink orange juice. and call a doctor or come to ER - Please, call [facility] ( at [address] [place] [address]) and schedule an appointment as soon as possible. number is [phone]. - I sent to the pharmacy a prescription for glucometer. please use . - meds were sent to [facility] in [place]. it is open 24 hours, so please pick your medications today and start using in am. do not take glipizide today. - take your glipizide before breakfast and dinner. do not miss those two meals as your sugar might drop - low carbohydrate diet as we discussed - Dr. Smiley is the endocrine doctor. you can follow with him too Referrals: Emily Smiley MD [Staff Physician] - 1 Week Disposition: HOME - Home Medications Comprehensive Discharge Medication List: Ambulatory Orders Glipizide 5 mg PO BID #90 tablet 05/10/19 Miscellaneous Medical Supply [Glucometer Device] 1 each SQ TID #1 kit 05/10/19 Miscellaneous Medical Supply [Glucometer Test Strips #100] 1 each SQ TID #1 box 05/10/19 Miscellaneous Medical Supply [Lancets] 1 each SQ TID #2 box 05/10/19 metFORMIN HCL [Metformin HCl] 850 mg PO TID #90 tablet 05/10/19 This patient is new to me today: No Emergency Visit: Yes ED Registration Date: 05/01/19 Care time: The patient presented to the Emergency Department on the above date and was hospitalized for further evaluation of their emergent condition. Critical Care patient: No - Discharge Referral Referred to [facility] Med P.C.: No
[2019-05-10 16:11] VITALS: BP 142/80; PULSE 68; TEMP 98.1
[2019-05-10] MEDS ORDERED: INSULIN (NOVOLOG MIX 70/30) 100 UNITS/ML MDV SQ ONE (16:59)
[2019-05-10] MEDS ORDERED: INSULIN (NOVOLOG) ASPART 100 UNITS/ML 10ML VIAL ONE (17:18)
== END 2019-05-10 18:34 | disposition home or self-care (01) | DRG 720 ==
LOC: JER 20:05 → JERBED 21:36 → JICU 05-02 01:56 → J6S 05-06 14:01
PROVIDERS: ADMIT Internal Medicine Pulmonary Disease; ATTEND Internal Medicine
PROC: 05HM33Z Insertion of Infusion Device into Right Internal Jugular Vein, Percutaneous Approach (ICD-10-PCS; principal; 2019-05-02)
DX: A41.51 Sepsis due to Escherichia coli [E. coli] (principal); E11.10 Type 2 diabetes mellitus with ketoacidosis without coma; E87.1 Hypo-osmolality and hyponatremia; E83.42 Hypomagnesemia; N39.0 Urinary tract infection, site not specified; R53.1 Weakness; I95.9 Hypotension, unspecified; R65.21 Severe sepsis with septic shock; E87.2 Acidosis; B35.1 Tinea unguium; E83.39 Other disorders of phosphorus metabolism; K52.9 Noninfective gastroenteritis and colitis, unspecified; E87.6 Hypokalemia
CPT/HCPCS: 36415; 70450-TC; 71045-TC-FY; 71250-TC; 74176-TC; 76775-TC; 80048; 80053; 81003; 82010; 82436; 82550; 82607; 82746; 82803; 82962; 82977; 83036; 83605; 83735; 83880; 83930; 83935; 84100; 84133; 84300; 84484; 84540; 85025; 85610; 85730; 86803; 86850; 86900; 86901; 87040; 87086; 87186; 87389; 93005; 93010; 93306-TC; 94010; 97116-GP; 97161-GP; 99283-25; J0131; J7030

== ENCOUNTER 2019-06-02 18:59 | Emergency (ER) | payer OTHER ==
[2019-06-02 19:04] VITALS: BP 131/70; PULSE 86; TEMP 98; BMI 27.4
[2019-06-02] MEDS ORDERED: DIPHTH,PERTUSS(ACELL),TET 0.5 ML DISP.SYRIN IM ONE ×2 (19:04→20:20)
--- NOTE | 2019-06-02 19:04 | PDOC ---
Rapid Medical Evaluation Time Seen by Provider: 06/02/19 19:01 Medical Evaluation: Allergies Allergy/AdvReac Type Severity Reaction Status Date / Time No Known Allergies Allergy Verified 05/01/19 20:10 06/02/19 19:01 I have performed a brief in-person evaluation of this patient. The patient presents with a chief complaint of: mechanical fall, no LOC. denies dizziness, N/V. denies taking anticoagulants Pertinent physical exam findings: lac to R forehead I have ordered the following: tdap The patient will proceed to the ED for further evaluation. Discharge Disposition - Diagnosis Laceration - Referrals - Patient Instructions - Post Discharge Activity
--- NOTE | 2019-06-02 20:21 | PDOC ---
History of Present Illness - General Chief Complaint: Injury Stated Complaint: FALL/INJURY Time Seen by Provider: 06/02/19 19:01 - History of Present Illness Initial Comments: 06/02/19 20:19 59-year-old female with past medical history of diabetes presents for evaluation after a fall. She tripped mechanically and landed on the concrete lacerating her right temporal scalp. No loss of consciousness post injury nausea vomiting or visual changes. She takes no blood thinners or aspirin. She has no headache. Past History - Past Medical History Allergies/Adverse Reactions: Allergies Allergy/AdvReac Type Severity Reaction Status Date / Time No Known Allergies Allergy Verified 06/02/19 19:04 Home Medications: Ambulatory Orders Glipizide 5 mg PO BID #90 tablet 05/10/19 Miscellaneous Medical Supply [Glucometer Device] 1 each SQ TID #1 kit 05/10/19 Miscellaneous Medical Supply [Glucometer Test Strips #100] 1 each SQ TID #1 box 05/10/19 Miscellaneous Medical Supply [Lancets] 1 each SQ TID #2 box 05/10/19 metFORMIN HCL [Metformin HCl] 850 mg PO TID #90 tablet 05/10/19 COPD: No Diabetes: Yes - Immunization History Immunization Up to Date: No - Psycho Social/Smoking Cessation Hx Smoking History: Never smoked Have you smoked in the past 12 months: No Hx Alcohol Use: No Drug/Substance Use Hx: No Substance Use Type: None Review of Systems - Review of Systems HEENTM: No: Recent change in vision ABD/GI: No: Nausea, Vomiting Neurological: No: Headache *Physical Exam - Vital Signs Last Vital Signs Temp Pulse Resp BP Pulse Ox 98 F 86 18 131/70 99 06/02/19 19:00 06/02/19 19:00 06/02/19 19:00 06/02/19 19:00 06/02/19 19:00 - Physical Exam Comments: 06/02/19 20:19 There is a subcentimeter laceration on the left temporal scalp exposing subcutaneous fat Medical Decision Making - Medical Decision Making 06/02/19 20:20 Under aseptic technique 5 cc of 1% lidocaine without epinephrine was used to anesthetize the wound. The wound was copiously flushed explored to its base in a bloodless field without any identification of foreign body 3 interrupted 4-0 nylon sutures were used to close the wound and approximate the edges a dry sterile dressing was placed and this was tolerated well. Discharge - Discharge Information Problems reviewed: Yes Clinical Impression/Diagnosis: Laceration Condition: Stable Disposition: HOME - Admission No - Follow up/Referral - Patient Discharge Instructions Additional Instructions: Please keep the dressing on for the next 48 hours. After 48 hours you may remove the dressing wash the area gently with soap and water and leave it open to air. Return to the emergency room for any redness draining or swelling as these may be signs of infection. Sutures out in 7 days. Not before 7 days. After 48 hours you may remove the dressing wash the area with soap and water and leave it open to air - Post Discharge Activity
== END 2019-06-02 20:27 | disposition home or self-care (01) ==
LOC: JERFT 18:59
PROC: 3E0234Z Introduction of Serum, Toxoid and Vaccine into Muscle, Percutaneous Approach (ICD-10-PCS; principal; 2019-06-02)
PROC: 0JQ10ZZ Repair Face Subcutaneous Tissue and Fascia, Open Approach (ICD-10-PCS; 2019-06-02)
DX: S01.81XA Laceration without foreign body of other part of head, initial encounter (principal); W18.39XA Other fall on same level, initial encounter; Y92.89 Other specified places as the place of occurrence of the external cause; Y93.89 Activity, other specified; Y99.8 Other external cause status; E11.9 Type 2 diabetes mellitus without complications; Z79.84 Long term (current) use of oral hypoglycemic drugs
CPT/HCPCS: 12011-25; 90471; 90715; 99282-25